=== PATIENT | male | born 1960 | race Caucasian/White ===

== ENCOUNTER 2017-05-11 12:16 | Observation (INO) ==
[2017-05-11] MEDS ORDERED: ONDANSETRON 4 MG/2 ML INJECTION IVP ONE ×2 (12:52→15:46)
[2017-05-11] MEDS ORDERED: NS 1,000 ML IV ONE (12:52)
--- OUTSIDE RECORDS SUMMARY | 2017-05-11 12:55 | External Medical Summary ---
:1960 Author Organization [facility] Address [address] [place], [place] [address] Care Team Providers Name Role Phone Carly Phelps Unavailable Unavailable PROBLEMS Type Condition ICD9-CM [id number] Onset Condition SNOMED Code Code Code Dates Status Problem Cigarette F17.210 Active 348785650 nicotine dependence, uncomplicated Problem Depression with F41.8 Active 869808254 anxiety Problem GERD K21.9 Active 475262445 (gastroesophageal reflux disease) Problem Obesity (BMI E66.9 Active 657588409 30.0-34.9) Problem Type 2 diabetes E11.65 Active 915373434758590 mellitus with hyperglycemia Problem Allergic rhinitis J30.9 Active 01371075 Problem ED (erectile N52.9 Active 268834904 dysfunction) Problem TIA (transient G45.9 Active 415668749 ischemic attack) Problem Diabetic E11.40 Active 003338195 neuropathy Problem HTN I10 Active 16899197 (hypertension) Problem HLD E78.5 Active 52609639 (hyperlipidemia) Problem Vitamin B12 E53.8 Active 133831232 deficiency Problem OA M19.90 Active 149371271 (osteoarthritis) ALLERGIES Unknown Allergies SOCIAL HISTORY No smoking Hx information available PLAN OF CARE VITAL SIGNS MEDICATIONS Unknown Medications RESULTS No Results PROCEDURES No Known procedures IMMUNIZATIONS No Known Immunizations
--- OUTSIDE RECORDS SUMMARY | 2017-05-11 12:59 | External Medical Summary | Summary of Care ---
:1960 Author Name Lena Daily M.D. Address [address] [place], [place] [id number] Care Team Providers Name Role Phone Jeffrey Gómez D.O. Unavailable Unavailable Lena Daily M.D. Unavailable Unavailable Osei Crespo M.D. Unavailable Unavailable Nitin Marrufo Primary Care Provider Unavailable Unavailable Unavailable Unavailable Functional Status Functional Status Health Issues Name Dates Details Functional status health issues are not documented Status: Cognitive Status Health Issues Name Dates Details Cognitive status health issues are not documented Status: Problems Name Dates Details Accidental Needlestick (E920.5) Status: Active Lower back pain (724.2, M54.5) Status: Active Abdominal pain (789.00, R10.9) Status: Active Allergic rhinitis (477.9, J30.9) Status: Active Transient ischemic attack (435.9, G45.9) Status: Active Asthma (493.90, J45.909) Status: Active Obesity (278.00, E66.9) Status: Active Chest pain (786.50, R07.9) Status: Active Depression (311, F32.9) Status: Active Immunodeficiency disorder (279.3, D84.9) Status: Active Pre-operative cardiovascular examination (V72.81, Z01.810) Status: Active Angina pectoris (413.9, I20.9) Status: Active CAD (coronary artery disease) (414.00, I25.10) Status: Active Hyperlipidemia (272.4, E78.5) Status: Active Benign essential hypertension (401.1, I10) Status: Active Left arm pain (729.5, M79.602) Status: Active Type 1 diabetes (250.01, E10.9) Status: Active Rotator cuff tendonitis (726.10, M75.80) Status: Active Shoulder pain (719.41, M25.519) Status: Active Arm pain (729.5, M79.603) Status: Active Medications Name Dates Details Aspirin 81 MG Oral Tablet TAKE 1 TABLET DAILY. Refills: 0 Started 23-Jul-2013 ActiveRanitidine HCl - 150 MG Oral Tablet TAKE 1 TABLET DAILY. Refills: 0 Started 23-Jul-2013 ActiveLasix 40 MG Oral Tablet TAKE 1 TABLET DAILY. Refills: 0 Started 23-Jul-2013 ActiveALPRAZolam 2 MG Oral Tablet Take one tablet q4h PRN Refills: 0 Started 23-Jul-2013 ActiveAtorvastatin Calcium 80 MG Oral Tablet TAKE ONE TABLET BY MOUTH EVERY NIGHT AT BEDTIME Quantity: 30 Refills: 6 Parker Crespo M.D. Started ActiveJanumet 50-1000 MG Oral Tablet TAKE 1 TABLET TWICE DAILY WITH MEALS. Refills: 0 Parker Crespo M.D. Started 15-Jun-2014 ActiveProAir HFA 108 (90 Base) MCG/ACT Inhalation Aerosol Solution INHALE 1 TO 2 PUFFS EVERY 4 TO 6 HOURS NEEDED. Refills: 0 Parker Crespo M.D. Started 15-Jun-2014 ActiveFluticasone Propionate 50 MCG/ACT Nasal Suspension USE 1 SPRAY IN EACH NOSTRIL ONCE DAILY. Refills: 0 Parker Crespo M.D. Started 15-Jun-2014 ActiveGlipiZIDE 10 MG Oral Tablet take one tab twice daily Refills: 0 Parker Crespo M.D. Started 15-Jun-2014 ActiveXyzal 5 MG Oral Tablet TAKE 1 TABLET DAILY. Refills: 0 Parker Crespo M.D. Started 15-Jun-2014 ActiveLisinopril-Hydrochlorothiazide 20-12.5 MG Oral Tablet TAKE 1 TABLET DAILY. Refills: 0 Parker Crespo M.D. Started 15-Jun-2014 ActiveDoxepin HCl - 10 MG Oral Capsule TAKE 1 CAPSULE AT BEDTIME. Refills: 0 Parker Crespo M.D. Started 15-Jun-2014 ActiveCeleXA 40 MG Oral Tablet TAKE 1 TABLET DAILY. Refills: 0 Parker Crespo M.D. Started 15-Jun-2014 ActiveLevocetirizine Dihydrochloride 5 MG Oral Tablet TAKE 1 TABLET DAILY IN THE EVENING. Refills: 0 Started 24-Jul-2014 ActiveAbilify 10 MG Oral Tablet TAKE 1 TABLET DAILY. Refills: 0 Started 24-Jul-2014 ActiveZofran 8 MG Oral Tablet Refills: 0 Started 24-Jul-2014 ActiveCitalopram Hydrobromide 40 MG Oral Tablet TAKE 1 TABLET DAILY. Refills: 0 Started 24-Jul-2014 ActiveFurosemide 40 MG Oral Tablet TAKE 1 TABLET DAILY DIRECTED. Refills: 0 Started 24-Jul-2014 ActiveByetta 5 MCG Pen 5 MCG/0.02ML Subcutaneous Solution Pen-injector USE DIRECTED. Refills: 0 Started 24-Jul-2014 ActivePotassium Chloride ER 10 MEQ Oral Tablet Extended Release TAKE 1 TABLET TWICE DAILY. Refills: 0 Started 24-Jul-2014 ActiveDiclofenac Sodium 75 MG Oral Tablet Delayed Release TAKE 1 TABLET Every twelve hours PRN arm pain Quantity: 50 Refills: 0 Reyes Gómez D.O. Started 05-Aug-2014 ActiveOxycodone-Acetaminophen 7.5-325 MG Oral Tablet Si PO every 6-8 hrs prn with a max of 3 per day. Quantity: 90 Refills: 0 Alfonso Daily M.D. Started 26-Oct-2015 Active Allergies and Adverse Reactions Name Dates Details Bactrim TABS Status: Active Procedures Procedure Dates Details History of Coronary Angiography Without Completed:12-Jul-2013 Concomitant Left Heart Catheterization History of Appendectomy History of Knee Surgery History of Angioplasty Drug Screen Pain Management 8400 Ordered:26-Oct-2015 Immunization Name Dates Details Immunizations not documented Family History Mother Name Dates Details Family history of diabetes mellitus (V18.0, Z83.3) Status: Active Father Name Dates Details Family history of cerebrovascular accident (V17.1, Z82.3) Status: Active Family history of acute myocardial infarction (V17.3, Z82.49) Status: Active Brother Name Dates Details Family history of acute myocardial infarction (V17.3, Z82.49) Status: Active FH: CABG (coronary artery bypass surgery) (V17.3, Z84.89) Status: Active Social History Name Dates Details Smoking StatusCurrent every day smoker Vital Signs Date Test Result Details No Known Vitals to report Results Date Description Value Details Results not documented Plan of Care Planned Observations Name Dates Details Planned Goals not documented Goal Planned Encounters Appointment; Provider: Alfonso Daily On 24-Nov-2015 15:30 Appointment; Provider: Parker Crespo On 06-Jul-2014 08:30 Appointment; Provider: Parker Crespo On 12-Jul-2013 08:30 Instructions Instructions not documented Encounters Appointment; Alfonso Daily On 26-Oct-2015 Encounter Diagnosis: Problem not documented 10:00 Appointment; Yordan Whalen On 09-Aug-2014 Encounter Diagnosis: Problem not documented 13:00 Appointment; Reyes Gómez On 05-Aug-2014 Encounter Diagnosis: Problem not documented 09:00 Appointment; Shaun Oakes On 04-Aug-2014 Encounter Diagnosis: Problem not documented 09:45 Appointment; Reyes Gómez On 24-Jul-2014 Encounter Diagnosis: Problem not documented 08:25 Appointment; Yordan Whalen On 15-Jun-2014 Encounter Diagnosis: Problem not documented 13:00
--- OUTSIDE RECORDS SUMMARY | 2017-05-11 13:02 | External Medical Summary ---
:1960 Author Organization [employer] Care Team Providers Name Role Phone Evon Virgen Provider Role Unavailable Allergies, Adverse Reactions, Alerts Substance Reaction Event Type Bactrim Info Not Available Drug Allergy Problems Problem Type Condition ICD-9 Code Onset Dates Condition Status Problem Edema 782.3 Active Problem Coronary atherosclerosis of 414.00 Active unspecified type of vessel, [place] or graft Problem Diabetes mellitus without 250.02 Active mention of complication, type II or unspecified type, uncontrolled Problem Lipidemia 272.4 Active Problem GERD (gastroesophageal reflux 530.81 Active disease) Problem Smoker 305.1 Active Problem Allergic rhinitis 477.9 Active Problem Obesity 278.00 Active Problem Anxiety and depression 300.4 Active Problem Erectile dysfunction 607.84 Active Assessment Muscle cramps 729.82 Active Assessment GERD (gastroesophageal reflux 530.81 Active disease) Assessment Coronary atherosclerosis of 414.00 Active unspecified type of vessel, [place] or graft Assessment ED (erectile dysfunction) 607.84 Active Assessment Diabetes mellitus without 250.02 Active mention of complication, type II or unspecified type, uncontrolled Medications Medication Code Code Instructions Start End Status Dosage System Date Date Potassium [facility] [address]-34 10 meq Orally Jul 15September 05 tablet Chloride Perri Twice a day 2014 09, ER 2014 Carafate [facility] [address]-28 1 GM/10ML Aug 16November 14, 10 ml Orally Twice a 2014 2014 day Flonase [facility] [address]-46 50 MCG/ACT December 06 spray in Nasally Once a 13, each nostril day 2013 Clemastine [facility] [address]-77 1.34 MG Orally 1 tablet as Fumarate Twice a day needed Janumet [facility] [address]-83 50-1000 MG Jul 05, 1 tablet with Orally Twice a 2013 day GlipiZIDE [facility] [address]-16 5 MG Orally Apr 12, 1 tablet Once a day 2013 Diclofenac 75mg [facility] [address]-37 not defined tablet Zofran [facility] [address]-02 8 MG Orally Jun 28, 1 tablet Once a day 2013 Byetta 5 MCG [facility] [address]-62 5 MCG/0.02ML Jul 06, Sep 04, 5 mcg Pen Subcutaneous 2013 2014 Twice a day with AM and PM meals Atorvastatin [facility] [address]-14 80 MG Orally Feb 22, 1 tablet Calcium Once a day 2013 Aspirin ND 0 81 mg Jul 23, take 1 tablet 2013 (81 mg) by oral route once daily Pantoprazole [facility] [address]-41 40 MG Orally Jul 06, 1 tablet Sodium Once a day 2013 Easy Touch Pen ND 0 31G Ultra fine Jul 07, as directed [place] mini subQ 2013 twice a day Sildenafil ND 0 50 MG Orally Aug 16October 06 tablet 30 Citrate Once a day 2014 10, min before 2015 intercourse Albuterol [facility] 36076631087 90 Inhalation 2 puffs as Sulfate HFA every 4 hrs needed Lisinopril-Hydr [facility] [address]-36 20-12.5 mg Jul 23, take 1 tablet ochlorothiazide 2013 by Oral route 1 time per day for 30 day(s) Lasix [facility] 65663605367 40 TAKE ONE TABLET BY MOUTH DAILY Xanax [facility] [address]-59 1 MG Orally October take 1 tablet once a day , by Oral route 2013 3 times per day Abilify [facility] [address]-62 5 MG Orally 1 tablet Once a day Procedures Procedure Coding System Code Date OFFICE VISIT EST PATIENT LEVEL 3 CPT-4 37443 Aug 16, 2014 Vital Signs Date/Time: Aug 16, 2014 BMI 32.40 Index Weight 225.8 lbs Height 70 in Blood Pressure Diastolic 74 mm Hg Blood Pressure Systolic 128 mm Hg Cardiac Monitoring Heart Rate 80 /min Temperature 98.1 F Respiratory Rate 18 /min Results No Known Results Summary Purpose [employer] Submission
--- OUTSIDE RECORDS SUMMARY | 2017-05-11 13:02 | External Medical Summary ---
:1960 Author Organization [employer] Care Team Providers Name Role Phone Janneth Turpin Provider Role Unavailable Allergies No Known Allergies Problems Problem Type Condition Code Onset Dates Condition Status Problem Type 2 diabetes mellitus with E11.65 Active hyperglycemia Problem Obesity (BMI 30.0-34.9) E66.9 Active Problem HLD (hyperlipidemia) E78.5 Active Problem Depression with anxiety F41.8 Active Problem HTN (hypertension) I10 Active Problem ED (erectile dysfunction) N52.9 Active Problem Allergic rhinitis J30.9 Active Problem GERD (gastroesophageal reflux K21.9 Active disease) Problem Cigarette nicotine dependence, F17.210 Active uncomplicated Medications Medication Code System Code Instructions Start End Date Status Dosage Date MetFORMIN HCl [facility] 13184-09 1000 MG Orally Jul 25, 2 tablets ER (MOD) 20-60 Once a day 2015 [place] [address]-60 10 MG Orally Dec 18, Dec 12, 1 tablet as 98-55 Once a day 2014 2015 needed Results No Known Results Summary Purpose [employer] Submission
--- OUTSIDE RECORDS SUMMARY | 2017-05-11 13:02 | External Medical Summary ---
:1960 Author Organization [facility] Address [address] [place], [place] [address] Care Team Providers Name Role Phone Alicia Turpinley Unavailable Unavailable PROBLEMS Type Condition ICD9-CM [id number] Onset Condition SNOMED Code Code Code Dates Status Problem Cigarette F17.210 Active 426355186 nicotine dependence, uncomplicated Problem Depression with F41.8 Active 048990067 anxiety Problem GERD K21.9 Active 563823264 (gastroesophageal reflux disease) Problem TIA (transient G45.9 Active 366556714 ischemic attack) Problem Diabetic E11.40 Active 897731273 neuropathy Problem HTN I10 Active 21477063 (hypertension) Problem HLD E78.5 Active 73956437 (hyperlipidemia) Problem Vitamin B12 E53.8 Active 233051710 deficiency Problem OA M19.90 Active 048633556 (osteoarthritis) Problem Obesity (BMI E66.9 Active 358609491 30.0-34.9) Problem Type 2 diabetes E11.65 Active 271111671282819 mellitus with hyperglycemia Problem Allergic rhinitis J30.9 Active 51659778 Assessment LUQ pain R10.12 10 Oct, Active 860748342 2016 Problem ED (erectile N52.9 Active 940705688 dysfunction) ALLERGIES Substance Reaction Event Type Date Status Pioglitazone HCl hives Drug Allergy Oct, Active Gabapentin Unknown Drug Allergy Oct, Active Bactrim Unknown Drug Allergy Oct, Active SOCIAL HISTORY No smoking Hx information available PLAN OF CARE VITAL SIGNS Height 70 in 2016-10-15 Weight 241.6 lbs 2016-10-15 BMI 34.66 kg/m2 2016-10-15 Temperature 98.0 degrees Fahrenheit 2016-10-15 Heart Rate 98 /min 2016-10-15 Respiratory Rate 18 /min 2016-10-15 Oximetry 96 % 2016-10-15 Blood pressure systolic 122 mm Hg 2016-10-15 Blood pressure diastolic 76 mm Hg 2016-10-15 MEDICATIONS Medication Instructions Dosage Frequency Start End Duration Status Date Date Oxycodone-Acetamin Orally every 6 1 tablet 6h Active ophen 7.5-325 MG hrs as needed GlipiZIDE ER 10 MG Orally Once a 1 tablet 24h Jan, 90 days Active day 2015 Cyclobenzaprine Orally Three 1 tablet 31 Sep, 10 Oct, 10 days Active HCl 10 MG times a day as 2016 2016 needed Clopidogrel Orally Once a 1 tablet 24h Jul, days Active Bisulfate 75 MG day 2016 ProAir HFA 108 (90 Inhalation 2 puffs as 4h Jun, days Active Base) MCG/ACT every 4 hrs needed 2015 Lisinopril-Hydroch Orally Once a 1 tablet 24h Jul, days Active lorothiazide day 2013 20-12.5 MG Xanax 1 MG Orally twice a 1 tablet 12h Oct, days Active day prn 2013 Cialis 5 MG Orally Once a 1 tablet 24h Jul, Jan, day(s) Active day 2016 2016 Atorvastatin Orally Once a 1 tablet 24h Feb, days Active Calcium 80 mg day 2013 MetFORMIN HCl ER Orally twice a 2 tablets 12h Aug, 90 days Active 500 MG day 2016 Furosemide 40 TAKE ONE 90 Active TABLET BY MOUTH DAILY Duloxetine HCl 30 Orally once a 1 capsule 24h Jun, day(s) Active MG day 2015 RESULTS No Results PROCEDURES Procedure Date Ordered Related Diagnosis Body Site OFFICE VISIT EST PATIENT LEVEL 3 October 15, 2016 IMMUNIZATIONS No Known Immunizations
--- OUTSIDE RECORDS SUMMARY | 2017-05-11 13:04 | External Medical Summary ---
:1960 Author Organization [employer] Care Team Providers Name Role Phone Evon Virgen Provider Role Unavailable Allergies No Known Allergies Problems Problem Type Condition ICD-9 Code Onset Dates Condition Status Problem Edema 782.3 Active Problem Coronary atherosclerosis of 414.00 Active unspecified type of vessel, [place] or graft Problem Diabetes mellitus without 250.02 Active mention of complication, type II or unspecified type, uncontrolled Problem Lipidemia 272.4 Active Problem GERD (gastroesophageal reflux 530.81 Active disease) Problem Smoker 305.1 Active Problem Allergic rhinitis 477.9 Active Problem Obesity 278.00 Active Problem Anxiety and depression 300.4 Active Problem Erectile dysfunction 607.84 Active Medications No Known Medications Results No Known Results Summary Purpose [employer]ClinicalWorks Submission
--- OUTSIDE RECORDS SUMMARY | 2017-05-11 13:04 | External Medical Summary | Summary of Care ---
:1960 Author Name Lena Daily M.D. Address Unavailable Unavailable , Care Team Providers Name Role Phone Jeffrey Gómez D.O. Unavailable Unavailable Lena Daily M.D. Unavailable Unavailable Osei Crespo M.D. Unavailable Unavailable Nitin Marrufo Unavailable Unavailable Unavailable Unavailable Unavailable Functional Status Functional [...] Status: Active Asthma (493.90, J45.909) Status: Active Chest pain (786.50, R07.9) Status: [...] Active Arm pain (729.5, M79.603) Status: Active Fibromyalgia (729.1, M79.7) Status: Active Shoulder pain, right (719.41, M25.511) Status: Active Rotator cuff syndrome, right (726.10, M75.101) Status: Active Low back pain (724.2, M54.5) Status: Active Degenerative disc disease, lumbar (722.52, M51.36) Status: Active Radicular syndrome of lower limbs (724.4, M54.10) Status: Active Obesity (278.00, E66.9) Status: Active Chronic use of opiate drugs therapeutic purposes (V58.69, Z79.891) Status: Active Medications Name Dates Details Aspirin 81 MG TABS TAKE 1 TABLET DAILY. Refills: 0 Start 23-Jul-2013 Active RaNITidine HCl - 150 MG Oral Tablet TAKE 1 TABLET DAILY. Refills: 0 Start 23-Jul-2013 Active Lasix 40 MG Oral Tablet TAKE 1 TABLET DAILY. Refills: 0 Start 23-Jul-2013 Active Atorvastatin Calcium 80 MG Oral Tablet TAKE ONE TABLET BY MOUTH EVERY NIGHT AT BEDTIME Quantity: 30 Refills: 6 Parker Crespo M.D. Start Active Janumet 50-1000 MG Oral Tablet TAKE 1 TABLET TWICE DAILY WITH MEALS. Refills: 0 Parker Crespo M.D. Start 15-Jun-2014 Active ProAir HFA 108 (90 Base) MCG/ACT Inhalation Aerosol Solution INHALE 1 TO 2 PUFFS EVERY 4 TO 6 HOURS NEEDED. Refills: 0 Parker Crespo M.D. Start 15-Jun-2014 Active Fluticasone Propionate 50 MCG/ACT Nasal Suspension USE 1 SPRAY IN EACH NOSTRIL ONCE DAILY. Refills: 0 Parker Crespo M.D. Start 15-Jun-2014 Active Xyzal 5 MG Oral Tablet TAKE 1 TABLET DAILY. Refills: 0 Parker Crespo M.D. Start 15-Jun-2014 Active Lisinopril-Hydrochlorothiazide 20-12.5 MG Oral Tablet TAKE 1 TABLET DAILY. Refills: 0 Parker Crespo M.D. Start 15-Jun-2014 Active Doxepin HCl - 10 MG Oral Capsule TAKE 1 CAPSULE AT BEDTIME. Refills: 0 Parker Crespo M.D. Start 15-Jun-2014 Active CeleXA 40 MG Oral Tablet TAKE 1 TABLET DAILY. Refills: 0 Parker Crespo M.D. Start 15-Jun-2014 Active ALPRAZolam 2 MG Oral Tablet Take one tablet q4h PRN Refills: 0 Start 23-Jul-2013 Active Levocetirizine Dihydrochloride 5 MG Oral Tablet TAKE 1 TABLET DAILY IN THE EVENING. Refills: 0 Start 24-Jul-2014 Active Abilify 10 MG Oral Tablet TAKE 1 TABLET DAILY. Refills: 0 Start 24-Jul-2014 Active Zofran 8 MG Oral Tablet Refills: 0 Start 24-Jul-2014 Active Citalopram Hydrobromide 40 MG Oral Tablet TAKE 1 TABLET DAILY. Refills: 0 Start 24-Jul-2014 Active Furosemide 40 MG Oral Tablet TAKE 1 TABLET DAILY DIRECTED. Refills: 0 Start 24-Jul-2014 Active Byetta 5 MCG Pen 5 MCG/0.02ML Subcutaneous Solution Pen-injector USE DIRECTED. Refills: 0 Start 24-Jul-2014 Active Potassium Chloride ER 10 MEQ Oral Tablet Extended Release TAKE 1 TABLET TWICE DAILY. Refills: 0 Start 24-Jul-2014 Active GlipiZIDE 10 MG Oral Tablet take one tab twice daily Refills: 0 Parker Crespo M.D. Start 15-Jun-2014 Active Diclofenac Sodium 75 MG Oral Tablet Delayed Release TAKE 1 TABLET Every twelve hours PRN arm pain Quantity: 50 Refills: 0 Reyes Gómez D.O. Start 05-Aug-2014 Active Oxycodone-Acetaminophen 7.5-325 MG Oral Tablet Si PO every 6-8 hrs prn with a max of 3 per day. Quantity: 90 Refills: 0 Alfonso Daily M.D. Start 19-Oct-2016 Active Hydrocodone-Acetaminophen 10-325 MG Oral Tablet Take 1 to 2 PO every 4-6 hours prn*max 3 per day*Must last [address] Daily Quantity: 90 Refills: 0 Alfonso Daily M.D. Start 07-Nov-2016 Active Allergies and Adverse Reactions Name Dates Details Bactrim TABS (Allergy) Status: Active Procedures Procedure Dates Details History of Coronary Angiography Without Concomitant Left Completed: 2013 Heart Catheterization History of Appendectomy History of Knee Surgery History of Angioplasty Procedures not documented Immunization Name Dates Details Immunizations not documented [...] Status: Active Social History Name Dates Details - Status: Smoking Status Name Dates Details Current every day smoker Vital Signs Date Test Result Details No Known Vitals to report Results Date Description Value Details Results not documented Plan of Care Name Dates Details Planned Observations Planned Goals not documented Planned Encounters Appointment; Provider: Alfonso Daily M.D. On 05-Dec-2016 15:30 Interventions Provided Medication ChangesHydrocodone-Acetaminophen 10-325 MG Oral Tablet - Start Instructions Name Dates Details Instructions not documented Encounters Appointment; Alfonso Daily M.D. On 12-Sep-2016 Encounter Diagnosis: Problem not documented 08:15 Appointment; Alfonso Daily M.D. On 19-Jul-2016 Encounter Diagnosis: Problem not documented 09:00 Appointment; Alfonso Daily M.D. On 15-May-2016 Encounter Diagnosis: Problem not documented 09:30 Appointment; Alfonso Daily M.D. On 15-Mar-2016 Encounter Diagnosis: Problem not documented 10:30 Appointment; Alfonso Daily M.D. On Encounter Diagnosis: Problem not documented 09:00 Appointment; Alfonso Daily M.D. On Encounter Diagnosis: Problem not documented 15:15 Appointment; Alfonso Daily M.D. On 24-Nov-2015 Encounter Diagnosis: Problem not documented 15:30 Appointment; Alfonso Daily M.D. On 26-Oct-2015 Encounter Diagnosis: Problem not documented 10:00
--- OUTSIDE RECORDS SUMMARY | 2017-05-11 13:04 | External Medical Summary ---
:1960 Author Organization [employer] Care Team Providers Name Role Phone Evon Virgen Provider Role Unavailable Allergies No Known Allergies Problems Problem Type Condition Code Onset Dates Condition Status Problem Diabetes mellitus without mention of 250.02 Active complication, type II or unspecified type, uncontrolled Problem Obesity 278.00 Active Problem Coronary atherosclerosis of 414.00 Active unspecified type of vessel, [place] or graft Problem Edema 782.3 Active Problem Smoker 305.1 Active Problem Lipidemia 272.4 Active Problem Unspecified essential hypertension 401.9 Active Problem Erectile dysfunction 607.84 Active Problem Allergic rhinitis 477.9 Active Problem GERD (gastroesophageal reflux 530.81 Active disease) Problem Anxiety and depression 300.4 Active Medications No Known Medications Results No Known Results Summary Purpose [employer]ClinicalWorks Submission
--- OUTSIDE RECORDS SUMMARY | 2017-05-11 13:04 | External Medical Summary ---
:1960 Author Organization [employer] Care Team Providers Name Role Phone Janneth Turpin Provider Role Unavailable Allergies No Known Allergies Problems Problem Type Condition Code Onset Dates Condition Status Problem Allergic rhinitis 477.9 Active Problem Anxiety and depression 300.00 Active Problem Erectile dysfunction 607.84 Active Problem Obesity (BMI 30.0-34.9) E66.9 Active Problem HLD (hyperlipidemia) 272.4 Active Problem Type 2 diabetes mellitus with E11.65 Active hyperglycemia Problem Unspecified essential hypertension 401.9 Active Problem GERD (gastroesophageal reflux 530.81 Active disease) Problem Tobacco use 305.1 Active Problem CAD (coronary artery disease) 414.00 Active Problem Edema 782.3 Active Problem Diabetes mellitus without mention of 250.02 Active complication, type II or unspecified type, uncontrolled Problem Obesity 278.00 Active Medications No Known Medications Results No Known Results Summary Purpose [employer] Submission
--- OUTSIDE RECORDS SUMMARY | 2017-05-11 13:04 | External Medical Summary | Summary of Care ---
[...] of lower limbs (724.4, M54.10) Status: Active Medications Name Dates Details Aspirin 81 MG TABS TAKE 1 TABLET DAILY. Refills: 0 Start 23-Jul-2013 Active RaNITidine HCl - 150 MG Oral Tablet TAKE 1 TABLET DAILY. Refills: 0 Start 23-Jul-2013 Active Lasix 40 MG Oral Tablet TAKE 1 TABLET DAILY. Refills: 0 Start 23-Jul-2013 Active ALPRAZolam 2 MG Oral Tablet Take one tablet q4h PRN Refills: 0 Start 23-Jul-2013 Active Atorvastatin Calcium [...] 0 Parker Crespo M.D. Start 15-Jun-2014 Active GlipiZIDE 10 MG Oral Tablet take [...] 1 CAPSULE AT BEDTIME. Refills: 0 Parker Crepso M.D. Start 15-Jun-2014 Active CeleXA 40 MG Oral Tablet TAKE 1 TABLET DAILY. Refills: 0 Parker Crespo M.D. Start 15-Jun-2014 Active Levocetirizine Dihydrochloride 5 MG Oral Tablet [...] TWICE DAILY. Refills: 0 Start 24-Jul-2014 Active Diclofenac Sodium 75 MG Oral Tablet Delayed Release TAKE 1 TABLET Every twelve hours PRN arm pain Quantity: 50 Refills: 0 Reyes Gómez D.O. Start 05-Aug-2014 Active Oxycodone-Acetaminophen 7.5-325 MG Oral Tablet Si PO every 6-8 hrs prn with a max of 3 per day. Quantity: 90 Refills: 0 Alfonso Daily M.D. Start 21-Jun-2016 Active Allergies and Adverse Reactions Name Dates [...] Planned Observations Planned Goals not documented Planned Medications Oxycodone-Acetaminophen 7.5-325 MG Oral Tablet Ordered: 21-Jun-2016 Active Instructions Name Dates Details Instructions not documented Encounters Appointment; Alfonso Daily M.D. On 15-Mar-2016 Encounter Diagnosis: Problem not documented 10:30 Appointment; Alfonso Daily M.D. On Encounter Diagnosis: Problem not documented 09:00 Appointment; Alfonso Daily M.D. On Encounter Diagnosis: Problem not documented 15:15 Appointment; Alfonso Daily M.D. On 24-Nov-2015 Encounter Diagnosis: Problem not documented 15:30 Appointment; Alfonso Daily M.D. On 26-Oct-2015 Encounter Diagnosis: Problem not documented 10:00 Appointment; Yordan Whalen PJose On 09-Aug-2014 Encounter Diagnosis: Problem not documented 13:00 Appointment; Reyes Gómez D.O. On 05-Aug-2014 Encounter Diagnosis: Problem not documented 09:00 Appointment; Shaun Oakes M.D. On 04-Aug-2014 Encounter Diagnosis: Problem not documented 09:45 Appointment; Reyes Gómez D.O. On 24-Jul-2014 Encounter Diagnosis: Problem not documented 08:25 Appointment; Yordan Whalen PKanwalAKanwal On 15-Jun-2014 Encounter Diagnosis: Problem not documented 13:00
--- OUTSIDE RECORDS SUMMARY | 2017-05-11 13:05 | External Medical Summary | Summary of Care ---
:1960 Author Name Jeffrey Maddox Address [address], [place] [id number] Care Team Providers Name Role Phone Osei Crespo M.D. Unavailable Unavailable Unavailable Unavailable Unavailable Functional Status [...] Benign essential hypertension (401.1, I10) Status: Active Shoulder pain (719.41, M25.519) Status: Active Arm pain (729.5, M79.603) Status: Active Left arm pain (729.5, M79.602) Status: Active Type 1 diabetes (250.01, E10.9) Status: Active Rotator cuff tendonitis (726.10, M75.80) Status: Active Medications Name Dates Details Aspirin 81 MG Oral Tablet TAKE 1 TABLET DAILY. Refills: 0 Started -Jul-2013 ActiveRanitidine HCl - 150 MG Oral Tablet [...] IN EACH NOSTRIL ONCE DAILY. Refills: 0 aPrker Crespo M.D. Started 15-Jun-2014 ActiveGlipiZIDE 10 MG [...] TABLET TWICE DAILY. Refills: 0 Started 24-Jul-2014 Active Allergies and Adverse Reactions Name Dates Details Bactrim TABS Status: Active Procedures Procedure Dates Details History of Coronary Angiography Without Concomitant Left Completed:2013 Heart Catheterization History of Appendectomy History of [...] FH: CABG (coronary artery bypass surgery) (V17.3, Z82.49) Status: Active Social History Name Dates Details Smoking StatusCurrent every day smoker Vital Signs Date Test Result Details 04-Aug-2014 10:01 BP Systolic 133 mm[Hg] Status: BP Diastolic 83 mm[Hg] Status: Weight 230 lb Status: Height 70 in Status: Body Mass Index Calculated 33 kg/m2 Status: Body Surface Area Calculated 2.22 m2 Status: 24-Jul-2014 08:53 BP Systolic 121 mm[Hg] Status: BP Diastolic 82 mm[Hg] Status: Heart Rate 77 /min Status: Temperature 98.1 f Status: O2 SAT 97 % Status: Results Date Description Value Details 21-Jul-2014 Drug Screen ( 7 Drug Comments: check this order TESTING PERFORMED AT: [] [address], [address], PHONE: [phone], PROFESSIONAL DEVELOPMENT INSTRUCTOR: VI SMALLWOOD MD 07:57 Bundle) [id number] AMPHETAMINES, URINE NEGATIVE NG/ML Range: JLFPYY=4822 (Better) Comments: AMPHETAMINE TEST INCLUDES AMPHETAMINE AND METHAMPHETAMINE.----- BARBITURATES NEGATIVE NG/ML Range: JBRRMQ=686 (Better) BENZODIAZEPINES NEGATIVE NG/ML Range: FYROAG=068 (Better) CANNABINOID NEGATIVE NG/ML Range: CUTOFF=50 (Better) COCAINE (METAB.) NEGATIVE NG/ML Range: DXVBWZ=036 (Better) OPIATES NEGATIVE NG/ML Range: JVERGX=491 (Better) Comments: OPIATE TEST INCLUDES CODEINE AND MORPHINE ONLY.----- PHENCYCLIDINE NEGATIVE NG/ML Range: CUTOFF=25 (Better) Plan of Care Planned Observations Name Dates Details Planned Goals not documented Goal Planned Encounters Appointment; Provider: Yordan Whalen On 09-Aug-2014 13:00 Appointment; Provider: Parker Crespo On 06-Jul-2014 08:30 Appointment; Provider: Parker Crespo On 12-Jul-2013 08:30 Instructions Instructions not documented Encounters Appointment; Shaun Oakes On 04-Aug-2014 Encounter Diagnosis: Problem not documented 09:45 Appointment; Reyes Gómez On 24-Jul-2014 Encounter Diagnosis: Problem not documented 08:25 Appointment; Yordan Whalen On 15-Jun-2014 Encounter Diagnosis: Problem not documented 13:00 Appointment; Parker Crespo On 21-Oct-2013 Encounter Diagnosis: Problem not documented 13:45 Appointment; Yordan Whalen On 23-Jul-2013 Encounter Diagnosis: Problem not documented 11:00
--- OUTSIDE RECORDS SUMMARY | 2017-05-11 13:05 | External Medical Summary ---
:1960 Author Organization [employer] Care Team Providers Name Role Phone Janneth Turpin Provider Role Unavailable Allergies No Known Allergies Problems Problem Type Condition Code Onset Dates Condition Status Problem Type 2 diabetes mellitus with E11.65 Active hyperglycemia Problem ED (erectile dysfunction) N52.9 Active Problem Allergic rhinitis J30.9 Active Problem Obesity (BMI 30.0-34.9) E66.9 Active Problem OA (osteoarthritis) M19.90 Active Problem HTN (hypertension) I10 Active Problem Vitamin B12 deficiency E53.8 Active Problem GERD (gastroesophageal reflux K21.9 Active disease) Problem Cigarette nicotine dependence, F17.210 Active uncomplicated Problem HLD (hyperlipidemia) E78.5 Active Problem Depression with anxiety F41.8 Active Medications Medication Code System Code Instructions Start End Date Status Dosage Date PredniSONE [facility] 01062-067 10 MG Orally Feb 23, Mar 01, 6 po day 1 7-20 Once a day 2015 2015 and decrease by one tab daily until gone. Azithromycin [facility] 78029-152 250 MG Orally Feb 23, Feb 28, 2 tablets 6-09 Once a day 2015 2015 on the first day, then 1 tablet daily for 4 days Results No Known Results Summary Purpose eClinical[employer] Submission
--- OUTSIDE RECORDS SUMMARY | 2017-05-11 13:07 | External Medical Summary | Summary of Care ---
[...] Status: Active Obesity (278.00, E66.9) Status: Active Medications Name Dates Details Aspirin [...] 0 Alfonso Daily M.D. Start 19-Oct-2016 Active Allergies and Adverse Reactions Name Dates [...] Encounters Appointment; Provider: Alfonso Daily M.D. On 07-Nov-2016 08:45 Planned Medications Oxycodone-Acetaminophen 7.5-325 MG Oral Tablet Ordered: 19-Oct-2016 Active Instructions Name Dates Details Instructions not documented Encounters Appointment; Alfonso Daily M.D. On 19-Jul-2016 Encounter [...]
--- OUTSIDE RECORDS SUMMARY | 2017-05-11 13:07 | External Medical Summary | Summary of Care ---
[...] Status: Active Fibromyalgia (729.1, M79.7) Status: Active Low back pain (724.2, M54.5) Status: Active Medications Name Dates Details Aspirin 81 MG TABS TAKE 1 TABLET DAILY. Refills: 0 Started [...] Refills: 0 Reyes Gómez D.O. Started 05-Aug-2014 ActiveHYDROmorphone HCl - 4 MG Oral Tablet Si PO every 4-6 hrs prn with a max of 3 per day. Quantity: 90 Refills: 0 Alfonso Daily M.D. Started Active Allergies and Adverse Reactions Name Dates Details Bactrim TABS Status: Active Procedures Procedure Dates Details History of Coronary Angiography Without Completed:12-Jul-2013 Concomitant Left Heart Catheterization History of Appendectomy History of Knee Surgery History of Angioplasty XRay SHOULDER-Left Ordered: XRay SHOULDER-Right Ordered: Immunization Name Dates Details Immunizations not documented [...] not documented Goal Planned Encounters Appointment; Provider: Parker Crespo On 06-Jul-2014 08:30 Appointment; Provider: Parker Crespo On 12-Jul-2013 08:30 Instructions Instructions not documented Encounters Appointment; Alfonso Daily On Encounter Diagnosis: Problem not documented 15:15 Appointment; Alfonso Daily On 24-Nov-2015 Encounter Diagnosis: Problem not documented 15:30 Appointment; Alfonso Daily On 26-Oct-2015 Encounter Diagnosis: Problem not documented 10:00 Appointment; Yordan Whalen On 09-Aug-2014 Encounter Diagnosis: Problem not documented 13:00 Appointment; Reyes Gómez On 05-Aug-2014 Encounter Diagnosis: Problem not documented 09:00 Appointment; Shaun Oakes On 04-Aug-2014 Encounter Diagnosis: Problem not documented 09:45 Appointment; Reyes óGmez On 24-Jul-2014 Encounter Diagnosis: Problem not documented 08:25 Appointment; Yordan Whalen On 15-Jun-2014 Encounter Diagnosis: Problem not documented 13:00
--- OUTSIDE RECORDS SUMMARY | 2017-05-11 13:07 | External Medical Summary | Summary of Care ---
:1960 Author Name Lena Daily M.D. Address Unavailable Unavailable , Care Team Providers Name Role Phone Lena Daily M.D. Unavailable Unavailable Osei Crespo M.D. Unavailable Unavailable Janneth Turpin Unavailable Unavailable Unavailable Unavailable Unavailable Functional Status [...] Active Angina pectoris (413.9, I20.9) Status: Active Benign essential hypertension (401.1, I10) [...] drugs therapeutic purposes (V58.69, Z79.891) Status: Active CAD (coronary artery disease) (414.00, I25.10) Status: Active Tobacco use disorder (305.1, F17.200) Status: Active Intermittent claudication (443.9, I73.9) Status: Active Hyperlipidemia (272.4, E78.5) Status: Active Medications Name Dates Details ALPRAZolam 2 MG Oral Tablet Take one tablet q4h PRN Refills: 0 Start 23-Jul-2013 Active Atorvastatin Calcium 80 MG Oral Tablet TAKE ONE TABLET BY MOUTH EVERY NIGHT AT BEDTIME Quantity: 30 Refills: 6 Parker Crespo M.D. Start Active ProAir HFA 108 (90 Base) MCG/ACT [...] 0 Parker Crespo M.D. Start 15-Jun-2014 Active Furosemide 40 MG Oral Tablet TAKE 1 TABLET DAILY DIRECTED. Refills: 0 Start 24-Jul-2014 Active Potassium Chloride ER 10 MEQ Oral Tablet Extended Release TAKE 1 TABLET TWICE DAILY. Refills: 0 Start 24-Jul-2014 Active Hydrocodone-Acetaminophen 10-325 MG Oral Tablet Take 1 to 2 PO every 4-6 hours prn*max 3 per day*Must last [address] Daily Quantity: 90 Refills: 0 Alfonso Daily M.D. Start Active MetFORMIN HCl - 1000 MG Oral Tablet TAKE 1 TABLET TWICE DAILY. Refills: 0 Parker Crespo M.D. Start Active Xanax 1 MG Oral Tablet TAKE 1 TABLET BY MOUTH TWO TIMES A DAY Refills: 0 Parker Crespo M.D. Start Active Cetirizine HCl - 10 MG Oral Tablet Chewable CHEW AND SWALLOW 1 TABLET DAILY. Refills: 0 Zak Guidry Parker Franz Start Active PriLOSEC OTC 20 MG Oral Tablet Delayed Release TAKE 1 TABLET DAILY. Refills: 0 Zak Guidry Parker Franz Start Active Colace 100 MG Oral Capsule take 1 cap twice daily Refills: 0 Zak Guidry Parker Franz Start Active Vitamin B-12 5000 MCG Oral Lozenge Take one tablet daily Refills: 0 Zak Guidry Parker Franz Start Active Ibuprofen 600 MG Oral Tablet TAKE 1 TABLET EVERY 6 TO 8 HOURS NEEDED. Refills: 0 Zak Guidry Parker Franz Start Active Cyclobenzaprine HCl - 10 MG Oral Tablet TAKE 1 TABLET 3 TIMES DAILY NEEDED. Quantity: 30 Refills: 0 Zak Guidry Parker Franz Start Active Clopidogrel Bisulfate 75 MG Oral Tablet TAKE 1 TABLET DAILY. Refills: 0 Zak Guidry Parker Franz Start Active Tylenol PM Extra Strength 500-25 MG Oral Tablet TAKE 2 TABLETS AT BEDTIME PRN Refills: 0 Zak Guidry Parker Franz Start Active Allergies and Adverse Reactions Name Dates Details Bactrim TABS (Allergy) Status: Active Pioglitazone HCl TABS (Allergy) Status: Active Procedures Procedure Dates [...] smoker Vital Signs Date Test Result Details 13:54 BP Systolic 132 mm[Hg] Status: Comments: Location: ; Position: BP Diastolic 82 mm[Hg] Status: Comments: Location: ; Position: Heart Rate 76 /min Status: Comments: Location: ; Weight 215 lb Status: Body Mass Index Calculated 30.85 kg/m2 Status: Body Surface Area Calculated 2.15 m2 Status: Results Date Description Value Details Results not documented Plan of Care Name Dates Details Planned Observations Planned Goals not documented Planned Encounters Appointment; Provider: Alfonso Daily M.D. On 11:30 Planned Medications Hydrocodone-Acetaminophen 10-325 MG Oral Tablet Ordered: Active Instructions Name Dates Details Instructions not documented Encounters Appointment; Nicolasa Giles M.D. On Encounter Diagnosis: Problem not documented 13:45 Appointment; Alfonso Daily M.D. On 07-Nov-2016 Encounter Diagnosis: Problem not documented 08:45 Appointment; Alfonso Daily M.D. On 12-Sep-2016 Encounter [...]
--- OUTSIDE RECORDS SUMMARY | 2017-05-11 13:07 | External Medical Summary | Summary of Care ---
[...] Low back pain (724.2, M54.5) Status: Active Shoulder pain, right (719.41, M25.511) Status: Active Medications Name Dates Details Aspirin [...]
--- OUTSIDE RECORDS SUMMARY | 2017-05-11 13:07 | External Medical Summary ---
:1960 Author Organization [facility] Address [address] [place], [place] [id number] Care Team Providers Name Role Phone Alicia Turpinley Unavailable Unavailable PROBLEMS Type Condition ICD9-CM RRZ28-PT Onset Condition SNOMED Code Code Code Dates Status Problem GERD K21.9 Active 593635086 (gastroesophageal reflux disease) Problem HLD E78.5 Active 60544109 (hyperlipidemia) Problem Depression with F41.8 Active 581935012 anxiety Problem Claudication I73.9 Active 228835762 Problem TIA (transient G45.9 Active 118334272 ischemic attack) Problem OA M19.90 Active 280542696 (osteoarthritis) Problem HTN I10 Active 69337142 (hypertension) Problem Diabetic E11.40 Active 009141705 neuropathy Problem Vitamin B12 E53.8 Active 451091237 deficiency Problem Type 2 diabetes E11.65 Active 349385168456715 mellitus with hyperglycemia Problem Allergic rhinitis J30.9 Active 87832986 Assessment Type 2 diabetes E11.65 21 November, Active 830128504953931 mellitus with 2017 hyperglycemia Problem ED (erectile N52.9 Active 985898249 dysfunction) Problem Obesity (BMI E66.9 Active 057866691 30.0-34.9) Problem Cigarette F17.210 Active 983020590 nicotine dependence, uncomplicated ALLERGIES Substance Reaction Event Type Date Status Pioglitazone HCl hives Drug Allergy November, Active Gabapentin Unknown Drug Allergy November, Active Bactrim Unknown Drug Allergy November, Active SOCIAL HISTORY No smoking Hx information available PLAN OF CARE Activity Details Pending Test Vitamin B12 Pending Test CBC With Platelet and Differential Pending Test Comprehensive Metabolic Panel (CMP) Pending Test Lipid Panel Pending Test Non-HDL Cholesterol Pending Test eGFR Pending Test Venipuncture 3 Months,Reason: VITAL SIGNS Height 70 in 2016-11-21 Weight 219.4 lbs 2016-11-21 BMI 31.48 kg/m2 2016-11-21 Temperature 97.9 degrees Fahrenheit 2016-11-21 Heart Rate 76 /min 2016-11-21 Respiratory Rate 18 /min 2016-11-21 Oximetry 98 % 2016-11-21 Blood pressure systolic 138 mm Hg 2016-11-21 Blood pressure diastolic 82 mm Hg 2016-11-21 MEDICATIONS Medication Instructions Dosage Frequency Start End Duration Status Date Date Furosemide 40 TAKE ONE 90 Active TABLET BY MOUTH DAILY Xanax 1 MG Orally twice a 1 tablet 12h 22 Oct, 30 days Active day prn 2013 Cetirizine HCl Orally Once a 1 tablet as 24h 90 Active 10 MG day needed GlipiZIDE ER 10 Orally Once a 1 tablet 24h Jan, days Active MG day 2015 Lisinopril-Harbinger Orally Once a 1 tablet 24h Jul, days Active chlorothiazide day 2013 20-12.5 MG Diabetic Insoles 1 21 November, 1 dose Active supply 2016 Oxycodone-Acetam Orally every 6 1 tablet as 6h Active inophen 7.5-325 hrs needed MG ProAir HFA 108 Inhalation every 2 puffs as 4h Jun, days Active (90 Base) 4 hrs needed 2015 MCG/ACT Atorvastatin Orally Once a 1 tablet 24h Feb, 90 days Active Calcium 80 mg day 2013 MetFORMIN HCl ER Orally twice a 2 tablets 12h Aug, days Active 500 MG day 2016 Clopidogrel Orally Once a 1 tablet 24h Jul, days Active Bisulfate 75 MG day 2016 Duloxetine HCl Orally once a 1 capsule 24h Jun, 30 day(s) Active 30 MG day 2015 Cialis 5 MG Orally Once a 1 tablet 24h Jul, 5 Jan, day(s) Active day 2016 2016 RESULTS No Results PROCEDURES Procedure Date Ordered Related Diagnosis Body Site IN-H GLYCOSYLATED HEMOGLOBIN TEST November 21, 2016 OFFICE VISIT EST PATIENT LEVEL 4 November 21, 2016 VITAMIN B-12 November 21, 2016 LIPID PANEL November 21, 2016 ROUTINE VENIPUNCTURE November 21, 2016 COMPLETE CBC WAUTO DIFF WBC November 21, 2016 COMPREHEN METABOLIC PANEL November 21, 2016 IMMUNIZATIONS No Known Immunizations
--- OUTSIDE RECORDS SUMMARY | 2017-05-11 13:07 | External Medical Summary ---
:1960 Author Organization [employer] Care Team Providers Name Role Phone Janneth Turpin Provider Role Unavailable Allergies, Adverse Reactions, Alerts Substance Reaction Event Type Pioglitazone HCl hives Drug Allergy Bactrim Info Not Available Drug Allergy Problems Problem Type Condition Code Onset Dates Condition Status Assessment Muscle cramps R25.2 Active Problem Type 2 diabetes mellitus with E11.65 Active hyperglycemia Problem Obesity (BMI 30.0-34.9) E66.9 Active Assessment Obesity (BMI 30.0-34.9) E66.9 Active Assessment Biceps tendonitis on left M75.22 Active Problem HLD (hyperlipidemia) E78.5 Active Problem Depression with anxiety F41.8 Active Problem HTN (hypertension) I10 Active Problem ED (erectile dysfunction) N52.9 Active Problem Allergic rhinitis J30.9 Active Problem GERD (gastroesophageal reflux K21.9 Active disease) Problem Cigarette nicotine dependence, F17.210 Active uncomplicated Medications Medication Code Code Instructions Start End Date Status Dosage System Date Atorvastatin [facility] [address]-69 80 mg Orally Feb 22, 1 tablet Calcium Once a day 2013 Lasix [facility] 51363238065 40 Orally Once 1 tablet a day Cetirizine HCl [facility] [address]-78 10 MG Orally Jun 24, Jun 12, 1 tablet Once a day 2014 2015 as needed Viagra [facility] [address]-48 100 mg Orally Apr 08, Apr 02, 1 tablet Once a day 2014 2015 as needed Potassium [facility] [address]-75 20 MEQ Orally Jun 24, January 15, 1 tablet Chloride Perri once a day 2014 2015 ER Lisinopril-Hydr [facility] [address]-70 20-12.5 MG Jul 23, 1 tablet ochlorothiazide Orally Once a 2013 day Phentermine HCl [facility] [address]-29 37.5 MG Orally Jun 24, Jul 17, 1 tablet Once a day 2014 2015 Aspirin ND 0 81 mg Jul 23, take 1 2013 tablet (81 mg) by oral route once daily Metformin HCl [facility] [address]-03 850 MG Orally Mar 09, 1 tablet three times 2014 with a daily meal GlipiZIDE [facility] [address]-82 10 MG Orally Mar 09, 1 tablet twice a day 2014 Lexapro [facility] [address]-25 20 MG Orally 0.5 Once a day tablet Xanax [facility] [address]-08 1 MG Orally October 1 once a day 2013 tablet by Oral route 3 times per day Pantoprazole [facility] [address]-90 40 MG Orally Jul 06 tablet Sodium Once a day 2013 Diclofenac [facility] [address]-39 75 MG Orally December 22September 1 tablet Sodium twice a day 2014 Procedures Procedure Coding System Code Date COMPLETE CBC WAUTO DIFF WBC CPT-4 52578 Jun 24, 2015 COMPREHEN METABOLIC PANEL CPT-4 63397 Jun 24, 2015 OFFICE VISIT EST PATIENT LEVEL 3 CPT-4 60049 Jun 24, 2015 ROUTINE VENIPUNCTURE CPT-4 58644 Jun 24, 2015 Vital Signs Date/Time: Jun 24, 2015 BMI 33.40 Index Weight 232.8 lbs Height 70 in Blood Pressure Diastolic 64 mm Hg Blood Pressure Systolic 108 mm Hg Cardiac Monitoring Heart Rate 78 /min Temperature 98.6 F Respiratory Rate 18 /min Results No Known Results Summary Purpose [employer]ClinicalWorks Submission
[2017-05-11] MEDS: SALINE FLUSH 10ml SYRINGE IVF PRN ×2 (13:08→15:51)
--- OUTSIDE RECORDS SUMMARY | 2017-05-11 13:09 | External Medical Summary ---
:1960 Author Name GENERATED, SYSTEM Care Team Providers Name Role Phone UNASSIGNED DOCTOR MD LILIANE DOCTOR Primary Care Provider [phone] Reason For Visit Chief Complaint SOB Social History Functional Status Vital Signs Results Chemistry from 02/06/2015 11:50 [id number] MMOL/L L (136-145 MMOL/L) POTASSIUM4.0 MMOL/L (3.5-5.1 MMOL/L) [id number] MMOL/L L (98-107 MMOL/L) ASR201.0 MMOL/L (21.0-32.0 MMOL/L) ANION GAP6.0 MMOL/L L (8.0-16.0 MMOL/L) BUN10 MG/DL (7-18 MG/DL) CREATININE0.97 MG/DL (0.70-1.30 MG/DL) BUN/CREATININE RATIO10.3 (9.1-17.0 ) [id number] MG/DL H (65-99 MG/DL) GFR EST NON AFR VANDAUPP39 ML/MIN GFRA EST AFR AMER>90 ML/MIN CALCIUM9.1 MG/DL (8.5-10.1 MG/DL) BILIRUBIN TOTAL0.56 MG/DL (0.20-1.00 MG/DL) TOTAL PROTEIN7.8 GM/DL (6.4-8.2 GM/DL) ALBUMIN3.4 GM/DL (3.4-5.0 GM/DL) GLOBULIN4.4 GM/DL H (2.3-3.5 GM/DL) A/G RATIO0.8 MG/DL L (1.5-2.2 MG/DL) ALK HSCU287 U/L (46-116 U/L) ALT (SGPT)50 U/L (14-59 U/L) AST (SGOT)38 U/L H (15-37 U/L) TROPONIN-I0.06 (SEE BELOW ) B-TYPE NATRIURETIC XQLVWLD97 PG/ML (1-100 PG/ML)Hematology from 02/06/2015 11:50 PMWBC6.6 X10e3/UL (3.6-11.2 X10e3/UL) RBC4.69 X10e6/UL (4.06-5.63 X10e6/UL) SAEGAZIDWF59.4 G/DL (12.5-16.3 G/DL) AWQULGWKJI00.4 % (36.7-47.1 %) MCV86.2 FL (80.0-100.0 FL) MCH30.7 PG (27.0-33.0 PG) MCHC35.7 G/DL (32.0-36.0 G/DL) RDW14.7 % (12.3-17.0 %) RDWSD44.2 (37.1-47.8 ) QMVNEAFI24 X10e3/UL L (159-386 X10e3/UL) MPV9.0 FL (7.4-10.4 FL) AUTOMATED DIFFPERFORMED SEGS65.1 % VIACIWBEFEW26.8 % MONOCYTES7.1 % EOSINOPHILS2.3 % BASOPHILS0.7 % ABSOLUTE NEUTROPHILS4.30 X10e3/UL (1.80-7.80 X10e3/UL) ABSOLUTE LYMPHOCYTES1.60 X10e3/UL (1.00-3.00 X10e3/UL) ABSOLUTE MONOCYTES0.50 X10e3/UL (0.30-1.00 X10e3/UL) ABSOLUTE EOSINOPHILS0.10 X10e3/UL (0.00-0.50 X10e3/UL) ABSOLUTE BASOPHILS0.00 X10e3/UL (0.00-0.20 X10e3/UL)DX Radiology from 02/06/2015 11:33 PMCHEST 2 VIEWSHistory: Shortness of Breath. Technique: 2 VIEW CHEST Priors: 06/12/14 Findings: The cardiac silhouette and pulmonary vasculature are within normal limits. There are no acute infiltrates or effusions. Impression: No acute cardiopulmonary disease. Electronically signed by: Jordan Dunn MD Dictated: 02/07/2015 09:23 Problems Encounter Diagnosis No relevant problems exist. Additional Problems Acute Coronary Syndrome Comment:Problem resolved by [facility] Work[employer] upon Discharge, Status:Resolved.Chest Pain Comment:Problem resolved by [facility] [employer] upon Discharge, Status:Resolved. Encounters Encounter Diagnosis No relevant problems exist. Plan of Care Procedures Completed , on 07/12/2013 12:00 AMCompleted , on 07/12/2013 12:00 AMCompleted , on 12:00 AMCompleted , on 07/12/2013 12:00 AMCompleted , on 07/12/2013 12:00 AM Immunizations No immunizations administered or ordered. Hospital Course Hospital Discharge Instructions Allergies, Adverse Reactions, Alerts Bactrim causes Mild soa.Latex Allergy has not been assessed.IV Contrast Allergy has not been assessed. Medication Medication reconciliation has not been performed.
--- OUTSIDE RECORDS SUMMARY | 2017-05-11 13:09 | External Medical Summary ---
:1960 Author Organization eClinicalWorks Care Team Providers Name Role Phone Evon Virgen Provider Role Unavailable Allergies, Adverse Reactions, Alerts Substance Reaction Event Type Bactrim Info Not Available Drug Allergy Problems Problem Type Condition ICD-9 Code Onset Dates Condition Status Problem Edema 782.3 Active Problem Coronary atherosclerosis of 414.00 Active unspecified type of vessel, [place] or graft Problem Diabetes mellitus without 250.02 Active mention of complication, type II or unspecified type, uncontrolled Problem Lipidemia 272.4 Active Problem GERD (gastroesophageal reflux 530.81 Active disease) Problem Smoker 305.1 Active Problem Allergic rhinitis 477.9 Active Problem Obesity 278.00 Active Problem Anxiety and depression 300.4 Active Problem Erectile dysfunction 607.84 Active Assessment GERD (gastroesophageal reflux 530.81 Active disease) Assessment Coronary atherosclerosis of 414.00 Active unspecified type of vessel, [place] or graft Assessment Diabetes mellitus without 250.02 Active mention of complication, type II or unspecified type, uncontrolled Medications Medication Code Code Instructions Start End Status Dosage System Date Date Xyzal [facility] 0 5 Active TAKE ONE TABLET BY MOUTH EVERY EVENING Janumet [facility] [address]-68 50-1000 MG Jul 05, Active 1 tablet Orally Twice a 2013 with meals day By 5 MCG [facility] [address]-87 5 MCG/0.02ML Jul 06Sep 04, Active 5 mcg Pen Subcutaneous 2013 2014 Twice a day with AM and PM meals Flonase [facility] [address]-27 50 MCG/ACT December 18, Active 1 spray in Nasally Once a 2013 each day nostril Celexa [facility] [address]-58 40 MG Orally December 18, Active 1 tablet Once a day 2013 Zofran [facility] [address]-88 8 MG Orally Jun 28, Active 1 tablet Once a day 2013 Albuterol [facility] 22209342951 90 Inhalation Active 2 puffs as Sulfate HFA every 4 hrs needed Lantus SoloStar [facility] [address]-17 100 UNIT/ML Mar 12, Active 5 units at Subcutaneous 2013 HS Once a day GlipiZIDE [facility] [address]-55 5 MG Orally Apr 12, Active 1 tablet Once a day 2013 Atorvastatin [facility] [address]-27 80 MG Orally Feb 22, Active 1 tablet Calcium Once a day 2013 Clemastine [facility] [address]-39 1.34 MG Orally Active 1 tablet Fumarate Twice a day as needed Potassium [facility] [address]-08 10 meq Orally Jul 15September Active 1 tablet Chloride Perri Twice a day 2014 09, ER 2014 Lisinopril-Hydr [facility] [address]-89 20-12.5 mg Jul 23, Active take 1 ochlorothiazide 2013 tablet by Oral route 1 time per day for 30 day(s) Carafate [facility] [address]-59 1 GM Orally ac Jul 15September Active 1 tablet and hs 2015 03, on an 2014 empty stomach Lasix [facility] 70455280204 40 Active TAKE ONE TABLET BY MOUTH DAILY Aspirin NDC 0 81 mg Jul 23, Active take 1 2013 tablet (81 mg) by oral route once daily Xanax [facility] [address]-21 1 MG Orally October Active take 1 once a day 2013 tablet by Oral route 3 times per day Pantoprazole [facility] [address]-10 40 MG Orally Jul 06, Active 1 tablet Sodium Once a day 2013 Sildenafil NDC 0 50 MG Orally Jul 15, Aug 14, Active 1 tablet Citrate Once a day 2014 as needed min before intercourse Easy Touch Pen NDC 0 31G Ultra fine Jul 07, Active as [place] mini subQ twice 2013 directed a day Procedures Procedure Coding System Code Date IMMUNOASSAY,INFECTIOUS AGENT CPT-4 27637 Jul 15, 2014 GLYCOSYLATED HEMOGLOBIN TEST CPT-4 72482 Jul 15, 2014 METABOLIC PANEL TOTAL CA CPT-4 77858 Jul 15, 2014 HEPATIC FUNCTION PANEL CPT-4 19259 Jul 15, 2014 LIPID PANEL CPT-4 16713 Jul 15, 2014 OFFICE VISIT EST PATIENT LEVEL 3 CPT-4 58474 Jul 15, 2014 ROUTINE VENIPUNCTURE CPT-4 73291 Jul 15, 2014 Vital Signs Date/Time: Jul 15, 2014 BMI 32.71 Index Weight 228 lbs Height 70 in Blood Pressure Diastolic 78 mm Hg Blood Pressure Systolic 120 mm Hg Cardiac Monitoring Heart Rate 72 /min Temperature 97.7 F Respiratory Rate 20 /min Results Name Result Date Reference Range Unit H. pylori Summary Purpose eClinicalWorks Submission
--- OUTSIDE RECORDS SUMMARY | 2017-05-11 13:09 | External Medical Summary ---
:1960 Author Organization [facility] Address [address] [place], [place] [address] Care Team Providers Name Role Phone Janneth Turpin Unavailable Unavailable PROBLEMS Type Condition ICD9-CM [id number] Onset Condition SNOMED Code Code Code Dates Status Problem ED (erectile N52.9 Active 341221522 dysfunction) Problem GERD K21.9 Active 370177869 (gastroesophageal reflux disease) Problem Cigarette F17.210 Active 683219156 nicotine dependence, uncomplicated Assessment RUQ pain R10.11 Jun, Active 986298861 2015 Problem Obesity (BMI E66.9 Active 284296139 30.0-34.9) Problem Type 2 diabetes E11.65 Active 622717208472889 mellitus with hyperglycemia Problem Allergic rhinitis J30.9 Active 25813303 Problem Diabetic E11.40 Active 507886388 neuropathy Problem Vitamin B12 E53.8 Active 752277279 deficiency Problem HLD E78.5 Active 48338434 (hyperlipidemia) Problem Depression with F41.8 Active 315645601 anxiety Problem OA M19.90 Active 744201732 (osteoarthritis) Problem HTN I10 Active 12451377 (hypertension) ALLERGIES Substance Reaction Event Type Date Status Pioglitazone HCl hives Drug Allergy Jun, Active Gabapentin Unknown Drug Allergy Jun, Active Bactrim Unknown Drug Allergy Jun, Active SOCIAL HISTORY No smoking Hx information available PLAN OF CARE Activity Details Pending Test Ultrasound : Abdomen (attn: liver, gallbladder) as scheduled,Reason: VITAL SIGNS Height 70 in 2016-06-28 Weight 210.0 lbs 2016-06-28 BMI 30.13 kg/m2 2016-06-28 Temperature 97.7 degrees Fahrenheit 2016-06-28 Heart Rate 94 /min 2016-06-28 Respiratory Rate 18 /min 2016-06-28 Oximetry 98 % 2016-06-28 Blood pressure systolic 124 mm Hg 2016-06-28 Blood pressure diastolic 76 mm Hg 2016-06-28 MEDICATIONS Medication Instructions Dosage Frequency Start End Duration Status Date Date Xanax 1 MG Orally once a take 1 24h Oct, days Active day tablet by 2013 Oral route 3 times per day GlipiZIDE ER 10 Orally Once a 1 tablet 24h Jan, days Active MG day 2015 Oxycodone-Acetam Orally every 6 1 tablet as 6h Active inophen 7.5-325 hrs needed MG Cialis 20 MG Orally Once a 1 tablet Jun, Aug, 05 days Active day PRN 2015 2016 Atorvastatin Orally Once a 1 tablet 24h Feb, days Active Calcium 80 mg day 2013 MetFORMIN HCl ER Orally Once a 2 tablets 24h Jul, Active (MOD) 1000 MG day with 2015 evening meal Aspirin 81 mg take 1 Jul, Active tablet (81 2013 mg) by oral route once daily Duloxetine HCl Orally once a 1 capsule 24h Jun, day(s) Active 30 MG day 2015 Furosemide 40 TAKE ONE 90 Active TABLET BY MOUTH DAILY ProAir HFA 108 Inhalation every 2 puffs as 4h Jun, days Active (90 Base) 4 hrs needed 2015 MCG/ACT RESULTS Name Result Date Reference Range Ultrasound : Abdomen (attn: liver, gallbladder) 2016-07-03 PROCEDURES Procedure Date Ordered Related Diagnosis Body Site OFFICE VISIT EST PATIENT LEVEL 3 Jun 28, 2016 IMMUNIZATIONS No Known Immunizations
--- OUTSIDE RECORDS SUMMARY | 2017-05-11 13:11 | External Medical Summary ---
[...] Cigarette nicotine dependence, F17.210 Active uncomplicated Medications No Known Medications Results No Known Results Summary Purpose eClinicalWorks Submission
--- OUTSIDE RECORDS SUMMARY | 2017-05-11 13:11 | External Medical Summary ---
:1960 Author Organization eClinicalWorks Care Team Providers Name Role Phone Janneth Turpin Provider Role Unavailable Allergies No Known Allergies Problems Problem Type Condition Code Onset Dates Condition Status Problem Allergic rhinitis J30.9 Active Problem Cigarette nicotine dependence, F17.210 Active uncomplicated Problem ED (erectile dysfunction) N52.9 Active Problem Obesity (BMI 30.0-34.9) E66.9 Active Problem Type 2 diabetes mellitus with E11.65 Active hyperglycemia Problem Vitamin B12 deficiency E53.8 Active Problem OA (osteoarthritis) M19.90 Active Problem Diabetic neuropathy E11.40 Active Problem Depression with anxiety F41.8 Active Problem GERD (gastroesophageal reflux K21.9 Active disease) Problem HTN (hypertension) I10 Active Problem HLD (hyperlipidemia) E78.5 Active Medications Medication Code System Code Instructions Start End Date Status Dosage Date ProAir HFA [facility] 83273-851 108 (90 Base) Dec 12, 2 puffs as 1-85 MCG/ACT 2015 needed Inhalation every 4 hrs Azithromycin [facility] 48415-170 250 MG Orally Jun 18, Jun 23, 2 tablets 6-09 Once a day 2015 2015 on the first day, then 1 tablet daily for 4 days Results No Known Results Summary Purpose eClinicalWorks Submission
--- OUTSIDE RECORDS SUMMARY | 2017-05-11 13:11 | External Medical Summary | Summary of Care ---
[...] disc disease, lumbar (722.52, M51.36) Status: Active Medications Name Dates Details Aspirin 81 MG TABS TAKE 1 TABLET DAILY. Refills: 0 Started 23-Jul-2013 ActiveRaNITidine HCl - 150 MG Oral Tablet TAKE [...] 90 Refills: 0 Alfonso Daily M.D. Started 22-Feb-2016 ActiveHYDROmorphone HCl - 4 MG Oral Tablet [...] to report Results Date Description Value Details 16:18 XRay SHOULDER-Right Comments: Exam Date: 01/12/2016 15: 31Dictation Date: 01/12/2016 16:18 X SHOULDER COMP (MIN 2V) RT (Better) 16:18 XRay SHOULDER-Left Comments: Exam Date: 01/12/2016 15:30Dictation Date: 01/12/2016 16:18 X SHOULDER COMP (MIN 2V) LT (Better) Plan of Care Planned Observations Name Dates Details Planned Goals not documented Goal Planned Encounters Appointment; Provider: Alfonso Daily On 19-Mar-2016 09:00 Appointment; Provider: Alfonso Daily On 15-Mar-2016 10:30 Appointment; Provider: Parker Crespo On 06-Jul-2014 08:30 Appointment; Provider: Parker Crespo On 12-Jul-2013 08:30 Instructions Instructions not documented Encounters Appointment; Alfonso Daily On Encounter Diagnosis: Problem not documented 09:00 Appointment; Alfonso Daily On Encounter Diagnosis: Problem [...]
--- OUTSIDE RECORDS SUMMARY | 2017-05-11 13:11 | External Medical Summary ---
[...] Problem ED (erectile dysfunction) N52.9 Active Problem Vitamin B12 deficiency E53.8 Active Problem OA (osteoarthritis) M19.90 Active Problem Diabetic neuropathy E11.40 Active Problem Depression with anxiety F41.8 Active Problem GERD (gastroesophageal reflux K21.9 Active disease) Problem HTN (hypertension) I10 Active Problem HLD (hyperlipidemia) E78.5 Active Assessment Diabetic neuropathy E11.40 Active Assessment HTN (hypertension) I10 Active Assessment Type 2 diabetes mellitus with E11.65 Active hyperglycemia Assessment OA (osteoarthritis) M19.90 Active Problem Obesity (BMI 30.0-34.9) E66.9 Active Assessment HLD (hyperlipidemia) E78.5 Active Problem Type 2 diabetes mellitus with E11.65 Active hyperglycemia Medications Medication Code Code Instructions Start End Status Dosage System Date Date Furosemide [facility] 72317671452 40 TAKE ONE TABLET BY MOUTH DAILY Gabapentin [facility] [address]-90 300 MG Orally May 22, 1 capsule at bedtime [address] [facility] [address]-02 1 MG Orally October take 1 once a day 2013 tablet by Oral route 3 times per day Atorvastatin [facility] [address]-09 80 mg Orally Feb 22, 1 tablet Calcium Once a day [address] [facility] [address]-53 10 MG Orally January 23, 1 tablet Once a day 2015 Oxycodone-Aceta [facility] [address]-04 7.5-325 MG 1 tablet minophen Orally every 6 as needed hrs MetFORMIN HCl [facility] [address]-76 1000 MG Orally Jul 25, 2 tablets ER (MOD) Once a day 2015 with evening meal Cetirizine HCl [facility] [address]-85 10 MG Orally Jun 24, Jun 18, 1 tablet Once a day 2014 2015 as needed Aspirin NDC 0 81 mg Jul 23, take 1 2013 tablet (81 mg) by oral route once daily Procedures Procedure Coding System Code Date OFFICE VISIT EST PATIENT LEVEL 4 CPT-4 06951 May 22, 2016 IN-H GLYCOSYLATED HEMOGLOBIN TEST CPT-4 94613 May 22, 2016 Vital Signs Date/Time: May 22, 2016 BMI 30.21 Index Weight 210.6 lbs Height 70 in Blood Pressure Diastolic 80 mm Hg Blood Pressure Systolic 124 mm Hg Cardiac Monitoring Heart Rate 86 /min Temperature 97.7 F Oximetry 97 % Respiratory Rate 18 /min Results Name Result Date Reference Range Unit Abnormality Flag Hemoglobin A1C - IH ----Hemoglobin A1c 7.1 [id number] 4.0 - 6.0 Summary Purpose eClinicalWorks Submission
--- OUTSIDE RECORDS SUMMARY | 2017-05-11 13:11 | External Medical Summary | Summary of Care ---
:1960 Author Name Lena Daily M.D. Address [address], [place] [id number] Care Team Providers Name Role Phone Jeffrey [...] to report Results Date Description Value Details 28-Oct-2015 DRUG SCREEN PM BASE Comments: Items were attached to this order: Drug Screen PM - TramadolQuest performed at : [facility], [facility] [place], [address], [place], [address], Labora 08:03 PROFILE [id number] dre Director: Brit Looney Ph.D.Quest Collection Date/Time: [id number] Results Received Date/Time: [id number] Reported Date/Time: [id number] Management Profile 1 w/ Confirm ation, Urine Drug 1 TramadolPain Management Profile 1 w/ Confirmation, Urine Drug 2 No Answer GivenPain Management Profile 1 w/ Confirmation, Urine Drug 3 No Answer GivenPain Management Profile 1 w/ Confirmation, Urine Drug 4 No Answer GivenPain Management Profile 1 w/ Confirmation, Urine Drug 5 No Answer Given Prescribed Drug 1 Tramadol (Better) Comments: [AP]----- Prescribed Drug 2 Tramadol (Better) Comments: [AP]----- Creatinine 8.1 mg/dL (Below Range: > or=20.0 low threshold) Comments: [AP]----- Specific [place] 1.014 (Better) Range: > or=1.003 Comments: [AP]----- pH 5.97 (Better) Range: 4.5 - 9.0 Comments: [AP]----- Oxidant NEGATIVE mcg/mL Range: <200 (Better) Comments: [AP]----- Benzodiazepines NEGATIVE ng/mL Range: <100 (Better) Comments: [AP]----- medMATCH Benzodiazepines CONSISTENT Comments: [AP]----- (Better) Cocaine Metabolite NEGATIVE ng/mL Range: <150 (Better) Comments: [AP]----- medMATCH Cocaine Metab CONSISTENT Comments: [AP]----- (Better) Opiates NEGATIVE ng/mL Range: <100 (Better) Comments: [AP]----- medMATCH Opiates CONSISTENT Comments: [AP]----- (Better) Oxycodone NEGATIVE ng/mL Range: <100 (Better) Comments: [AP]----- medMATCH Oxycodone CONSISTENT Comments: [AP]----- (Better) COMMENT SEE NOTE (Better) Comments: medMATCH comments are: - present when drug test results may be the result of metabolism of one or more drugs or when results are inconsistent with prescribed medication(s) listed. - may be blank whe n drug results are consistent with prescribed medication(s) listed.[AP] ----- 08:03 DRUG SCREEN PM, Comments: Items were attached to this order: Drug Screen PM - TramadolQuest performed at: , [facility] [address] [place] [address], [address], [place], [address], Labora Amphetamines with D/L tory Director: Brti Looney Ph.D.Quest Collection Date/Time: [id number] Results Received Date/Time: [id number] Reported Date/Time: [place] [id number] Prescribed Drug 1 Tramadol (Better) Comments: [AP]----- Prescribed Drug 2 Tramadol (Better) Comments: [AP]----- Amphetamines NEGATIVE ng/mL Range: <500 (Better) Comments: [AP]----- medMATCH Amphetamines CONSISTENT Comments: [AP]----- (Better) COMMENT SEE NOTE (Better) Comments: medMATCH comments are: - present when drug test results may be the result of metabolism of one or more drugs or when results are inconsistent with prescribed medication(s) listed. - may be blank whe n drug results are consistent with prescribed medication(s) listed.[AP] ----- 08:03 DRUG SCREEN PM, Comments: Items were attached to this order: Drug Screen PM - TramadolQuest performed at: , [facility], [address] [place] [address], [address], [place], [address], Labora Barbiturates [id number] tor Director: Brit Looney Ph.D.Quest Collection Date/Time: [id number] Results Received Date/Time: [id number] Reported Date/Time: Prescribed Drug 1 Tramadol (Better) Comments: [AP]----- Prescribed Drug 2 Tramadol (Better) Comments: [AP]----- Barbiturates NEGATIVE ng/mL Range: <300 (Better) Comments: [AP]----- medMATCH Barbiturates CONSISTENT Comments: [AP]----- (Better) COMMENT SEE NOTE (Better) Comments: medMATCH comments are: - present when drug test results may be the result of metabolism of one or more drugs or when results are inconsistent with prescribed medication(s) listed. - may be blank whe n drug results are consistent with prescribed medication(s) listed.[AP] ----- 08:03 DRUG SCREEN PM, Methadone Comments: Items were attached to this order: Drug Screen PM - TramadolQuest performed at : [facility], [address] [place] [address], [address], [place], [address], Labora Metabolite [id number] dre Director: Brit Looney Ph.D.Quest Collection Date/Time: [id number] Results Received Date/Time: [id number] Reported Date/Time: Prescribed Drug 1 Tramadol (Better) Comments: [AP]----- Prescribed Drug 2 Tramadol (Better) Comments: [AP]----- Methadone NEGATIVE ng/mL Range: <100 (Better) Comments: [AP]----- medMATCH Methadone CONSISTENT Comments: [AP]----- (Better) COMMENT SEE NOTE (Better) Comments: medMATCH comments are: - present when drug test results may be the result of metabolism of one or more drugs or when results are inconsistent with prescribed medication(s) listed. - may be blank whe n drug results are consistent with prescribed medication(s) listed.[AP] ----- 08:03 DRUG SCREEN PM, Comments: Items were attached to this order: Drug Screen PM - TramadolQuest performed at: [facility], [address] [place] [address], [address], [place], [address], Labora Phencyclidine [id number] april Director: Brit Looney Ph.D.Quest Collection Date/Time: [id number] Results Received Date/Time: [id number] Reported Date/Time: Prescribed Drug 1 Tramadol (Better) Comments: [AP]----- Prescribed Drug 2 Tramadol (Better) Comments: [AP]----- Phencyclidine NEGATIVE ng/mL Range: <25 (Better) Comments: [AP]----- medMATCH Phencyclidine CONSISTENT Comments: [AP]----- (Better) COMMENT SEE NOTE (Better) Comments: medMATCH comments are: - present when drug test results may be the result of metabolism of one or more drugs or when results are inconsistent with prescribed medication(s) listed. - may be blank whe n drug results are consistent with prescribed medication(s) listed.[AP] ----- 29-Oct-2015 DRUG SCREEN PM, Alcohol Comments: Items were attached to this order: Drug Screen PM - TramadolQuest performed at : , [facility], [place], [address], Labora 10:46 Metabolites [id number] dre Director: Brit Looney Ph.D.Quest Collection Date/Time: [id number] Results Received Date/Time: [id number] Reported Date/Time: [id number] Prescribed Drug 1 TramadolZ:\[id number] Comments: [AP]----- [id number]_2.PDF (Better) Prescribed Drug 2 Tramadol (Better) Comments: [AP]----- Alcohol Metabolites NEGATIVE ng/mL Range: <500 (Better) Comments: [AP]----- medMATCH Alcohol Metab CONSISTENT Comments: [AP]----- (Better) Please note: SEE NOTE (Better) Comments: * These results are for medical treatment only Analysis was performed as non-forensic testing *For assistance with interpreting these drug results,please contact a [facility] ToxicologySpecial ist: [phone] ( ),M-F, 8am-6pm EST.[AP]----- COMMENT SEE NOTE (Better) Comments: medMATCH comments are: - present when drug test results may be the result of metabolism of one or more drugs or when results are inconsistent with prescribed medication(s) listed. - may be blank whe n drug results are consistent with prescribed medication(s) listed.[AP] ----- 10:46 Drug Screen PM, Tramadol Comments: Items were attached to this order : Drug Screen PM - TramadolQuest performed at: , [facility], [address], [place], [address], Labora [id number] dre Director: Brit Looney Ph.D.Quest Collection Date/Time: [id number] Results Received Date/Time: [id number] Reported Date/Time: Desmethyltramadol NEGATIVEZ:\[id number] Range: <100 [id number]_21.PDF Comments: [AP]----- ng/mL (Better) Tramadol NEGATIVE ng/mL Range: <100 (Better) Comments: [AP]----- Plan of Care Planned Observations Name Dates Details Planned Goals not documented Goal Planned Encounters Appointment; Provider: Alfonso Daily On 15:30 Appointment; Provider: Parker Crespo On 06-Jul-2014 08:30 Appointment; Provider: Parker Crespo On 12-Jul-2013 08:30 Instructions Instructions not documented Encounters Appointment; Alfonso Daily On 24-Nov-2015 Encounter Diagnosis: [...]
--- OUTSIDE RECORDS SUMMARY | 2017-05-11 13:11 | External Medical Summary ---
:1960 Author Organization [facility] Address [address] [place], [place] [address] Care Team Providers Name Role Phone Janneth Turpin Unavailable Unavailable PROBLEMS Type Condition ICD9-CM [id number] Onset Condition SNOMED Code Code Code Dates Status Problem ED (erectile N52.9 Active 170247846 dysfunction) Problem GERD K21.9 Active 416806998 (gastroesophageal reflux disease) Problem Cigarette F17.210 Active 039651346 nicotine dependence, uncomplicated Problem Obesity (BMI E66.9 Active 385501690 30.0-34.9) Problem Type 2 diabetes E11.65 Active 464695892854387 mellitus with hyperglycemia Problem Allergic rhinitis J30.9 Active 18258999 Problem Diabetic E11.40 Active 558580624 neuropathy Problem Vitamin B12 E53.8 Active 669575066 deficiency Problem HLD E78.5 Active 87656478 (hyperlipidemia) Problem Depression with F41.8 Active 570237733 anxiety Problem OA M19.90 Active 683067936 (osteoarthritis) Problem HTN I10 Active 79486070 (hypertension) ALLERGIES Unknown Allergies SOCIAL HISTORY No smoking Hx information available PLAN OF CARE VITAL SIGNS MEDICATIONS Medication Instructions Dosage Frequency Start Date End Date Duration Status Cialis 20 MG Orally Once a day 1 tablet Jun, 14 b, 05 days Active PRN 2015 2016 RESULTS No Results PROCEDURES No Known procedures IMMUNIZATIONS No Known Immunizations
--- OUTSIDE RECORDS SUMMARY | 2017-05-11 13:14 | External Medical Summary ---
:1960 Author Organization eClinicalWorks Care Team Providers Name Role Phone Evon Virgen Provider Role Unavailable Allergies No Known Allergies Problems Problem Type Condition ICD-9 Code Onset Dates Condition Status Problem Coronary atherosclerosis of 414.00 Active unspecified type of vessel, [place] or graft Problem Allergic rhinitis 477.9 Active Problem Obesity 278.00 Active Problem Unspecified essential 401.9 Active hypertension Problem Smoker 305.1 Active Problem Encounter for long-term current V58.69 Active use of medication Problem Anxiety and depression 300.4 Active Problem Erectile dysfunction 607.84 Active Problem Lipidemia 272.4 Active Problem GERD (gastroesophageal reflux 530.81 Active disease) Assessment Lipidemia 272.4 Active Assessment Diabetes mellitus without 250.02 Active mention of complication, type II or unspecified type, uncontrolled Problem Edema 782.3 Active Assessment Encounter for long-term current V58.69 Active use of medication Problem Diabetes mellitus without 250.02 Active mention of complication, type II or unspecified type, uncontrolled Medications No Known Medications Results No Known Results Summary Purpose Ask ZiggyinicalpayasUgym Submission
--- OUTSIDE RECORDS SUMMARY | 2017-05-11 13:14 | External Medical Summary ---
[...] of 414.00 Active unspecified type of vessel, samish or graft Assessment Unspecified essential hypertension 401.9 Active Problem Edema 782.3 Active Problem Smoker 305.1 Active Problem Lipidemia 272.4 Active Problem Unspecified essential hypertension 401.9 Active Problem Erectile dysfunction 607.84 Active Problem Allergic rhinitis 477.9 Active Problem GERD (gastroesophageal reflux 530.81 Active disease) Problem Anxiety and depression 300.4 Active Medications Medication Code Code Instructions Start End Status Dosage System Date Date Pantoprazole [facility][NOTE 3] [address]-78 40 MG Orally Jul 06, 1 tablet Sodium Once a day 2013 Aspirin ND 0 81 mg Jul 23, take 1 2013 tablet (81 mg) by oral route once daily Easy Touch Pen ND 0 31G Ultra fine Jul 07, as [place] mini subQ twice 2014 directed a day Atorvastatin [facility][NOTE 3] [address]-19 80 MG Orally Feb 22, 1 tablet Calcium Once a day 2013 Abilify [facility][NOTE 3] [address]-57 5 MG Orally 1 tablet Once a day Xanax [facility][NOTE 3] [address]-92 1 MG Orally October take 1 once a day 2013 tablet by Oral route 3 times per day Diclofenac 75mg [facility][NOTE 3] [address]-80 not tablet defined Lasix [facility][NOTE 3] 88454021322 40 Orally Once 1 tablet a day Albuterol [facility][NOTE 3] 90181457434 90 Inhalation 2 puffs as Sulfate HFA every 4 hrs needed Janumet [facility][NOTE 3] [address]-55 50-1000 MG Jul 05, 1 tablet Orally Twice a 2013 with meals day Zofran [facility][NOTE 3] [address]-56 8 MG Orally Jun 28, 1 tablet Once a day 2013 Clemastine [facility][NOTE 3] [address]-79 1.34 MG Orally 1 tablet Fumarate Twice a day as needed GlipiZIDE [facility][NOTE 3] [address]-59 5 MG Orally Apr 12, 1 tablet Once a day 2013 Lisinopril-Hydr [facility][NOTE 3] [address]-45 20-12.5 MG Jul 23, 1 tablet ochlorothiazide Orally Once a 2013 day Flonase [facility][NOTE 3] [address]-68 50 MCG/ACT December 18, 1 spray in Nasally Once a 2013 each day nostril Results No Known Results Summary Purpose eClinicalWorks Submission
--- OUTSIDE RECORDS SUMMARY | 2017-05-11 13:14 | External Medical Summary ---
:1960 Author Organization eClinicalWorks Care Team Providers Name Role Phone Janneth Turpin Provider Role Unavailable Allergies, Adverse Reactions, Alerts Substance Reaction Event Type Pioglitazone HCl hives Drug Allergy Bactrim Info Not Available Drug Allergy Problems Problem Type Condition Code Onset Dates Condition Status Assessment Type 2 diabetes mellitus with E11.65 Active hyperglycemia Problem Type 2 diabetes mellitus with E11.65 Active hyperglycemia Problem Obesity (BMI 30.0-34.9) E66.9 Active Problem HLD (hyperlipidemia) E78.5 Active Problem Depression with anxiety F41.8 Active Problem HTN (hypertension) I10 Active Problem ED (erectile dysfunction) N52.9 Active Problem Allergic rhinitis J30.9 Active Problem GERD (gastroesophageal reflux K21.9 Active disease) Problem Cigarette nicotine dependence, F17.210 Active uncomplicated Assessment Obesity (BMI 30.0-34.9) E66.9 Active Assessment Cigarette nicotine dependence, F17.210 Active uncomplicated Assessment HLD (hyperlipidemia) E78.5 Active Assessment HTN (hypertension) I10 Active Medications Medication Code Code Instructions Start End Status Dosage System Date Date Lasix [facility] 30079665652 40 Orally Once 1 tablet a day Lexapro [facility] [address]-12 20 MG Orally 0.5 tablet Once a day Aspirin ND 0 81 mg Jul 23, take 1 tablet 2013 (81 mg) by oral route once daily MetFORMIN HCl [facility] [address]-66 1000 MG Orally Jul 25, 2 tablets with ER (MOD) Once a day 2015 evening meal Ipratropium [facility] [address]-66 0.03 % Nasally Mar 2 applications Leota Twice a day , 30, in each 2014 2015 nostril as needed Potassium [facility] [address]-22 20 MEQ Orally Jun 24January 1 tablet Chloride Perri once a day 2014 15, ER 2016 Cephalexin [facility] [address]-01 500 MG Orally Jul 25, Aug 04, 1 capsule three times 2015 2015 daily Xanax [facility] [address]-75 1 MG Orally October take 1 tablet once a day , by Oral route 2013 3 times per day Cetirizine HCl [facility] [address]-54 10 MG Orally Jun 24, Jun 18, 1 tablet as Once a day 2014 2015 needed Diclofenac [facility] [address]-24 75 MG Orally December 1 tablet Sodium twice a day 2014 Pantoprazole [facility] [address]-55 40 MG Orally Jul 06, 1 tablet Sodium Once a day 2013 Albuterol [facility] 63980552590 90 Inhalation 2 puffs as Sulfate HFA every 4 hrs needed Phentermine HCl [facility] [address]-00 37.5 MG Orally Jun 24, Jul 24, 1 tablet Once a day 2014 2015 Viagra [facility] [address]-23 100 mg Orally Apr 08Mar 1 tablet as Once a day 2014, needed 2015 Lisinopril-Hydr [facility] [address]-98 20-12.5 MG Jul 23, 1 tablet ochlorothiazide Orally Once a 2013 day Atorvastatin [facility] [address]-44 80 mg Orally Feb 22, 1 tablet Calcium Once a day 2013 GlipiZIDE [facility] [address]-78 10 MG Orally Sept 1 tablet twice a day 2014 Procedures Procedure Coding System Code Date OFFICE VISIT EST PATIENT LEVEL 3 CPT-4 29228 Jul 25, 2015 GLYCOSYLATED HEMOGLOBIN TEST CPT-4 50096 Jul 25, 2015 Vital Signs Date/Time: Jul 25, 2015 BMI 30.76 Index Weight 214.4 lbs Height 70 in Blood Pressure Diastolic 82 mm Hg Blood Pressure Systolic 132 mm Hg Cardiac Monitoring Heart Rate 105 /min Temperature 98.3 F Oximetry 97 % Respiratory Rate 18 /min Results Name Result Date Reference Range Unit Abnormality Flag Hemoglobin A1C - IH ----Hemoglobin A1c 7.2 [id number] 4.0 - 6.0 Summary Purpose eClinicalWorks Submission
--- OUTSIDE RECORDS SUMMARY | 2017-05-11 13:17 | External Medical Summary ---
[...] Start End Date Status Dosage Date PredniSONE [facility] 79577-561 10 MG Orally Jun 06, Jun 06, 6 po day 1 7-20 Once a day 2015 2015 and decrease by one tab daily until gone. Azithromycin [facility] 44053-354 250 MG Orally Jun 06, Jun 11, 2 tablets 6-09 Once a day 2015 2015 on the first day, then 1 tablet daily for 4 days Results No Known Results Summary Purpose eClinicalWorks Submission
--- OUTSIDE RECORDS SUMMARY | 2017-05-11 13:17 | External Medical Summary ---
:1960 Author Organization eClinicalWorks Care Team Providers Name Role Phone Janneth Turpin Provider Role Unavailable Allergies No Known Allergies Problems Problem Type Condition Code Onset Dates Condition Status Problem Diabetes mellitus without mention of 250.02 Active complication, type II or unspecified type, uncontrolled Problem Allergic rhinitis 477.9 Active Problem Obesity 278.00 Active Problem Edema 782.3 Active Problem Tobacco use 305.1 Active Problem CAD (coronary artery disease) 414.00 Active Problem HLD (hyperlipidemia) 272.4 Active Problem Anxiety and depression 300.00 Active Problem Erectile dysfunction 607.84 Active Problem Unspecified essential hypertension 401.9 Active Problem GERD (gastroesophageal reflux 530.81 Active disease) Medications No Known Medications Results No Known Results Summary Purpose eClinicalWorks Submission
--- OUTSIDE RECORDS SUMMARY | 2017-05-11 13:17 | External Medical Summary | Referral Summary ---
:1960 Author Organization [facility] Address [address] [place] [address] Care Team Providers Name Role Phone No PCP, Pt States Primary Care Physician Encounter VC Date(s): 11/13/15 - 11/13/15 [facility] [address] [place] [address] [phone] Discharge Diagnosis: Rib pain Discharge Diagnosis: Pneumonia Discharge Disposition: 01-Home or Self Care Attending Physician: Kevin Locke MD Admitting Physician: Kevin Locke MD Vital Signs Most recent to oldest [Reference Range]: 1 Temperature Oral [35.8-37.3 degC] 36.8 degC (11/13/15 4:29 PM) Peripheral Pulse Rate [60-100 bpm] 87 bpm (11/13/15 5:04 PM) Respiratory Rate [14-20 br/min] 18 br/min (11/13/15 5:04 PM) Blood Pressure [90-140/60-90 mmHg] 112/75 mmHg (11/13/15 5:04 PM) SpO2 96 % (11/13/15 5:04 PM) Problem List No data available for this section Allergies, Adverse Reactions, Alerts Substance Reaction Severity Status Bactrim Active Medications predniSONE 20 mg oral tablet 20 mg 1 tabs, Oral, Daily, X 3 days, # 3 tabs, 0 Refill(s) Start Date: 11/13/15 Stop Date: 11/16/15 Status: OrderedZithromax Z-Shade 250 mg oral tablet 1 packets, Oral, Daily, as directed on package labeling, X 5 days, # 6 tabs, 0 Refill(s) Start Date: 11/13/15 Stop Date: 11/18/15 Status: Ordered Results No data available for this section Immunizations No data available for this section Procedures No data available for this section Social History Social History Type Response Smoking Status Current every day smoker Assessment and Plan No data available for this section
--- OUTSIDE RECORDS SUMMARY | 2017-05-11 13:17 | External Medical Summary | Summary of Care ---
:1960 Author Name Tisha Guidry, Nicolasa Address Unavailable Unavailable , Care Team Providers Name Role Phone Tisha Guidry, Nicolasa Unavailable Unavailable Lena Daily M.D. Unavailable Unavailable Osei Crespo M.D. Unavailable Unavailable Verify PCP Unavailable Unavailable Unavailable Unavailable Unavailable Functional Status [...] MOUTH TWO TIMES A DAY Refills: 0 Zak Guidry Parker Franz Start Active Cetirizine HCl - 10 MG Oral Tablet Chewable CHEW AND SWALLOW 1 TABLET DAILY. Refills: 0 Zak Guidry Parker Start Active PriLOSEC OTC 20 MG Oral [...] TO 8 HOURS NEEDED. Refills: 0 Zak Guidry, Parker Franz Start Active Cyclobenzaprine HCl - [...] Appointment; Provider: Alfonso Daily M.D. On 11:30 Interventions Provided Medication ChangesAbilify 10 MG Oral Tablet - StopAspirin 81 MG TABS - StopByetta 5 MCG Pen 5 MCG/0.02ML Subcutaneous Solution Pen-injector - StopCeleXA 40 MG Oral Tablet - StopCitalopram Hydrobromide 40 MG Oral Tablet - StopDiclofenac Sodium 75 MG Oral Tablet Delayed Release - StopDoxepin HCl - 10 MG Oral Capsule - StopJanumet 50-1000 MG Oral Tablet - StopLasix 40 MG Oral Tablet - StopLevocetirizine Dihydrochloride 5 MG Oral Tablet - StopLisinopril- Hydrochlorothiazide 20-12.5 MG Oral Tablet - StopOxycodone-Acetaminophen 7.5- 325 MG Oral Tablet - StopRaNITidine HCl - 150 MG Oral Tablet - StopXyzal 5 MG Oral Tablet - StopZofran 8 MG Oral Tablet - Stop Instructions Name Dates Details Instructions not documented Encounters Appointment; Alfonso Daily M.D. On 07-Nov-2016 Encounter [...]
--- OUTSIDE RECORDS SUMMARY | 2017-05-11 13:17 | External Medical Summary ---
:1960 Author Organization eClinicalWorks Care Team Providers Name Role Phone Evon Virgen Provider Role Unavailable Allergies, Adverse Reactions, Alerts Substance Reaction Event Type Bactrim Info Not Available Drug Allergy Problems Problem Type Condition ICD-9 Code Onset Dates Condition Status Problem Edema 782.3 Active Problem Coronary atherosclerosis of 414.00 Active unspecified type of vessel, table [place] or graft Problem Diabetes mellitus without 250.02 Active mention of complication, type II or unspecified type, uncontrolled Problem Lipidemia 272.4 Active Problem GERD (gastroesophageal reflux 530.81 Active disease) Problem Smoker 305.1 Active Problem Allergic rhinitis 477.9 Active Problem Obesity 278.00 Active Problem Anxiety and depression 300.4 Active Problem Erectile dysfunction 607.84 Active Assessment Smoker 305.1 Active Assessment Gastroenteritis 558.9 Active Assessment Coronary atherosclerosis of 414.00 Active unspecified type of vessel, table [place] or graft Assessment Diabetes mellitus without 250.02 Active mention of complication, type II or unspecified type, uncontrolled Medications Medication Code Code Instructions Start End Date Status Dosage System Date Lisinopril-Fountain [facility] 12353-70 20-12.5 mg Jul 23, Active take 1 chlorothiazide 63-01 2013 tablet by Oral route 1 time per day for 30 day(s) Albuterol [facility] 10377-37 108 (90 Base) Mar 30, Active 2 puffs as Sulfate HFA 51-85 MCG/ACT 2013 needed Inhalation every 4 hrs Zofran [facility] 63128-58 8 MG Orally Once Jun 28, Active 1 tablet 47-00 a day 2013 Celexa [facility] 90052-61 40 MG Orally December 18, Active 1 tablet 40-01 Once a day 2013 Xanax [facility] 84250-16 1 MG Orally once October 27, Active take 1 90-01 a day 2014 tablet by Oral route 3 times per day Lasix [facility] 59264-54 40 MG Orally Apr 12, Active 1 tablet 60-13 Once a day 2013 Clemastine [facility] 68585-16 1.34 MG Orally Active 1 tablet as Fumarate 28-14 Twice a day needed Flonase [facility] 88884-85 50 MCG/ACT December 18, Active 1 spray in 53-01 Nasally Once a 2013 each day nostril Janumet [facility] 52672-33 50-1000 MG Mar 30, Active 1 tablet 77-52 Orally Twice a 2013 with meals day Victoza [facility] 96721-94 18 MG/3ML Jun 28, Aug 27, Active 0.6 mg/d 60-12 Subcutaneous 2013 2014 for 1 week Once a day then 1.2 mh /d Atorvastatin [facility] 21888-40 80 MG Orally Feb 22, Active 1 tablet Calcium - Once a day 2013 Lantus SoloStar [facility] 52616-12 100 UNIT/ML Mar 12, Active 5 units at - Subcutaneous 2013 HS Once a day pantoprazole [facility] 93817-38 40 mg September 24, Active take 1 41-81 2014 tablet by Oral route 1 time per day for 30 day(s) Aspirin [facility] 0 81 mg Jul 23, Active take 1 2013 tablet (81 mg) by oral route once daily GlipiZIDE [facility] 37989-32 5 MG Orally Once Apr 12, Active 1 tablet 49-00 a day 2013 Procedures Procedure Coding System Code Date OFFICE VISIT EST PATIENT LEVEL 3 CPT-4 48043 Jun 28, 2014 Vital Signs Date/Time: Jun 28, 2014 BMI 31.71 Index Weight 221 lbs Height 70 in Blood Pressure Diastolic 74 mm Hg Blood Pressure Systolic 120 mm Hg Cardiac Monitoring Heart Rate 80 /min Temperature 98.9 F Respiratory Rate 20 /min Results No Known Results Summary Purpose eClinicalWorks Submission
--- OUTSIDE RECORDS SUMMARY | 2017-05-11 13:17 | External Medical Summary | Summary of Care ---
:1960 Author Name Peng Marrufo M.D. Address Unavailable Unavailable , Care Team Providers Name Role Phone Rico Deshpande, Jeffrey Chambers Unavailable Unavailable Lena Daily M.D. Unavailable Unavailable Zak Guidry, Osei Canales Unavailable Unavailable Peng Marrufo M.D. Unavailable Unavailable Nitin Marrufo Unavailable Unavailable [...] TAKE 1 CAPSULE AT BEDTIME. Refills: 0 Zak Guidry Parker Franz Start 15-Jun-2014 Active CeleXA 40 MG Oral [...] Provider: Alfonso Daily M.D. On 07-Nov-2016 08:45 Instructions Name Dates Details Instructions not documented [...]
--- OUTSIDE RECORDS SUMMARY | 2017-05-11 13:17 | External Medical Summary ---
:1960 Author Organization eClinicalWorks Care Team Providers Name Role Phone Evon Virgen Provider Role Unavailable Allergies, Adverse Reactions, Alerts Substance Reaction Event Type Bactrim Info Not Available Drug Allergy Problems Problem Type Condition ICD-9 Code Onset Dates Condition Status Problem Diabetes mellitus without 250.02 Active mention of complication, type II or unspecified type, uncontrolled Problem Obesity 278.00 Active Problem Coronary atherosclerosis of 414.00 Active unspecified type of vessel, [place] or graft Problem Smoker 305.1 Active Problem Lipidemia 272.4 Active Problem Unspecified essential 401.9 Active hypertension Problem Erectile dysfunction 607.84 Active Problem Allergic rhinitis 477.9 Active Problem GERD (gastroesophageal reflux 530.81 Active disease) Problem Anxiety and depression 300.4 Active Assessment Muscle cramps 729.82 Active Assessment Screening for colon cancer V76.51 Active Assessment Diabetes mellitus without 250.02 Active mention of complication, type II or unspecified type, uncontrolled Assessment Lipidemia 272.4 Active Problem Edema 782.3 Active Medications Medication Code Code Instructions Start End Status Dosage System Date Date Aspirin ND 0 81 mg Jul 23, take 1 tablet 2013 (81 mg) by oral route once daily Pantoprazole [facility] [address]-00 40 MG Orally Jul 06, 1 tablet Sodium Once a day 2013 Lisinopril-Hydr [facility] [address]-50 20-12.5 MG Jul 23, 1 tablet ochlorothiazide Orally Once a 2013 day Lantus SoloStar [facility] [address]-80 100 UNIT/ML December 10 u Subcutaneous 16, at hs 2014 Atorvastatin [facility] [address]-42 80 MG Orally Feb 22, 1 tablet Calcium Once a day 2013 Abilify [facility] [address]-42 5 MG Orally 1 tablet Once a day Clemastine [facility] [address]-34 1.34 MG Orally 1 tablet as Fumarate Twice a day needed Flonase [facility] [address]-20 50 MCG/ACT December 06 spray in Nasally Once a 13, each nostril day 2013 Zofran [facility] [address]-27 8 MG Orally Jun 28, 1 tablet Once a day 2013 BD Ultra-Fine [facility] 0 31G Ultra fine December use with Pen [place] mini subQ once , lantus daily 2014 Janumet [facility] [address]-87 50-1000 MG Jul 05, 1 tablet with Orally Twice a 2013 meals day Xanax [facility] [address]-07 1 MG Orally October take 1 tablet once a day , by Oral route 2013 3 times per day Lasix [facility] 50838427129 40 Orally Once 1 tablet a day Albuterol [facility] 80535788248 90 Inhalation 2 puffs as Sulfate HFA every 4 hrs needed Diclofenac [facility] [address]-50 75 MG Orally December 1 tablet Sodium twice a day 2014 Viagra [facility] [address]-09 50 MG Orally Feb 22, 1 tablet as Once a day 2013 needed 30 min before anticipated intercourse Procedures Procedure Coding System Code Date ASSAY OF MAGNESIUM CPT-4 40226 December 21, 2014 LIPID PANEL CPT-4 46415 December 21, 2014 GLYCOSYLATED HEMOGLOBIN TEST CPT-4 49032 December 21, 2014 ROUTINE VENIPUNCTURE CPT-4 79313 December 21, 2014 HEPATIC FUNCTION PANEL CPT-4 21047 December 21, 2014 OFFICE VISIT EST PATIENT LEVEL 3 CPT-4 76050 December 21, 2014 Vital Signs Date/Time: December 21, 2014 BMI 31.13 Index Weight 217 lbs Height 70 in Blood Pressure Diastolic 76 mm Hg Blood Pressure Systolic 122 mm Hg Cardiac Monitoring Heart Rate 80 /min Temperature 98 F Respiratory Rate 18 /min Results No Known Results Summary Purpose eClinicalWorks Submission
--- OUTSIDE RECORDS SUMMARY | 2017-05-11 13:17 | External Medical Summary | Summary of Care ---
[...] Z79.891) Status: Active Medications Name Dates Details Lasix 40 MG Oral Tablet TAKE 1 TABLET DAILY. Refills: 0 Start 23-Jul-2013 Active Atorvastatin Calcium 80 MG Oral Tablet TAKE ONE TABLET BY MOUTH EVERY NIGHT AT BEDTIME Quantity: 30 Refills: 6 Parker Crespo M.D. Start Active Fluticasone Propionate 50 MCG/ACT Nasal Suspension USE 1 SPRAY IN EACH NOSTRIL ONCE DAILY. Refills: 0 Parker Crespo M.D. Start 15-Jun-2014 Active ProAir HFA 108 (90 Base) MCG/ACT Inhalation Aerosol Solution INHALE 1 TO 2 PUFFS EVERY 4 TO 6 HOURS NEEDED. Refills: 0 Parker Crespo M.D. Start 15-Jun-2014 Active Janumet 50-1000 MG Oral Tablet TAKE 1 TABLET TWICE DAILY WITH MEALS. Refills: 0 Parker Crespo M.D. Start 15-Jun-2014 Active RaNITidine HCl - 150 MG Oral Tablet TAKE 1 TABLET DAILY. Refills: 0 Start 23-Jul-2013 Active Aspirin 81 MG TABS TAKE 1 TABLET DAILY. Refills: 0 Start 23-Jul-2013 Active Hydrocodone-Acetaminophen 10-325 MG Oral Tablet Take 1 to 2 PO every 4-6 hours prn*max 3 per day*Must last [address] Daily Quantity: 90 Refills: 0 Alfonso Daily M.D. Start Active Oxycodone-Acetaminophen 7.5-325 MG Oral Tablet Si PO every 6-8 hrs prn with a max of 3 per day. Quantity: 90 Refills: 0 Alfonso Daily M.D. Start 19-Oct-2016 Active CeleXA 40 MG Oral Tablet TAKE 1 TABLET DAILY. Refills: 0 Parker Crespo M.D. Start 15-Jun-2014 Active Doxepin HCl - 10 MG Oral Capsule TAKE 1 CAPSULE AT BEDTIME. Refills: 0 Zak GuidryParker Start 15-Jun-2014 Active Lisinopril-Hydrochlorothiazide 20-12.5 MG Oral Tablet TAKE 1 TABLET DAILY. Refills: 0 Zak GuidryParker Start 15-Jun-2014 Active Xyzal 5 MG Oral Tablet TAKE 1 TABLET DAILY. Refills: 0 Zak Guidry Parker Farnz Start 15-Jun-2014 Active GlipiZIDE 10 MG Oral Tablet take one tab twice daily Refills: 0 Zak GuidryParker Start 15-Jun-2014 Active Levocetirizine Dihydrochloride 5 MG [...] 0 Reyes Gómez D.O. Start 05-Aug-2014 Active ALPRAZolam 2 MG Oral Tablet Take one tablet q4h PRN Refills: 0 Start 23-Jul-2013 Active Allergies and Adverse Reactions Name Dates [...]
--- OUTSIDE RECORDS SUMMARY | 2017-05-11 13:17 | External Medical Summary ---
:1960 Author Organization e[employer] Care Team Providers Name Role Phone Cinthia Gardner Provider Role Unavailable Allergies, Adverse Reactions, Alerts Substance Reaction Event Type Pioglitazone HCl hives Drug Allergy Bactrim Info Not Available Drug Allergy Problems Problem Type Condition Code Onset Dates Condition Status Problem Type 2 diabetes mellitus with E11.65 Active hyperglycemia Problem ED (erectile dysfunction) N52.9 Active Problem Allergic rhinitis J30.9 Active Assessment Upper respiratory infection J06.9 Active Problem Obesity (BMI 30.0-34.9) E66.9 Active Problem OA (osteoarthritis) M19.90 Active Problem HTN (hypertension) I10 Active Problem Vitamin B12 deficiency E53.8 Active Problem GERD (gastroesophageal reflux K21.9 Active disease) Problem Cigarette nicotine dependence, F17.210 Active uncomplicated Problem HLD (hyperlipidemia) E78.5 Active Problem Depression with anxiety F41.8 Active Medications Medication Code Code Instructions Start End Status Dosage System Date Date Cetirizine HCl [facility] [address]-12 10 MG Orally Jun 24, Jun 12, 1 tablet Once a day 2014 2015 as needed Xanax [facility] [address]-68 1 MG Orally October take 1 once a day 2013 tablet by Oral route 3 times per day Oxycodone-Aceta [facility] [address]-45 7.5-325 MG 1 tablet minophen Orally every 6 as needed hrs GlipiZIDE ER [facility] [address]-51 10 MG Orally January 23, 1 tablet Once a day 2015 Lasix [facility] 58991360581 40 Orally Once 1 tablet a day Aspirin ND 0 81 mg Jul 23, take 1 2013 tablet (81 mg) by oral route once daily Pantoprazole [facility] [address]-72 40 MG Orally Jul 06, 1 tablet Sodium Once a day 2013 Atorvastatin [facility] [address]-95 80 mg Orally Feb 22, 1 tablet Calcium Once a day 2013 Azithromycin [facility] [address]-86 250 MG Orally Mar 28, Mar 2 tablets Once a day 2016 26, on the 2015 first day, then 1 tablet daily for 4 days Lisinopril-Hydr [facility] [address]-65 20-12.5 MG Jul 23, 1 tablet ochlorothiazide Orally Once a 2013 day MetFORMIN HCl [facility] [address]-81 1000 MG Orally Jul 25, 2 tablets ER (MOD) Once a day 2015 with evening meal Viagra [facility] [address]-24 100 mg Orally Apr 08Mar 1 tablet Once a day 2014, as needed 2015 Procedures Procedure Coding System Code Date OFFICE VISIT EST PATIENT LEVEL 4 CPT-4 86332 Mar 28, 2016 Vital Signs Date/Time: Mar 28, 2016 BMI 29.45 Index Weight 205 lb 4 oz lbs Height 5 ft 10 in in Blood Pressure Diastolic 78 mm Hg Blood Pressure Systolic 128 mm Hg Cardiac Monitoring Heart Rate 92 /min Temperature 97.8 F Oximetry 98 % Respiratory Rate 18 /min Results No Known Results Summary Purpose eClinicalWorks Submission
--- OUTSIDE RECORDS SUMMARY | 2017-05-11 13:17 | External Medical Summary ---
:1960 Author Organization [employer] Care Team Providers Name Role Phone Evon Virgen Provider Role Unavailable Allergies No Known Allergies Problems Problem Type Condition ICD-9 Code Onset Dates Condition Status Problem Edema 782.3 Active Problem Coronary atherosclerosis of 414.00 Active unspecified type of vessel, three affiliated or graft Problem Diabetes mellitus without 250.02 Active mention of complication, type II or unspecified type, uncontrolled Assessment GERD (gastroesophageal reflux 530.81 Active disease) Problem Lipidemia 272.4 Active Problem GERD (gastroesophageal reflux 530.81 Active disease) Problem Smoker 305.1 Active Problem Allergic rhinitis 477.9 Active Problem Obesity 278.00 Active Problem Anxiety and depression 300.4 Active Problem Erectile dysfunction 607.84 Active Medications Medication Code Code Instructions Start End Status Dosage System Date Date Potassium [facility] [address]-64 10 meq Orally Jul 15September 05 tablet Chloride Perri Twice a day 2014 09, ER 2014 Clemastine [facility] [address]-99 1.34 MG Orally 1 tablet as Fumarate Twice a day needed Atorvastatin [facility] [address]-55 80 MG Orally Feb 22, 1 tablet Calcium Once a day 2013 Xanax [facility] [address]-01 1 MG Orally October take 1 tablet once a day , by Oral route 2013 3 times per day Sildenafil [facility] 0 50 MG Orally Aug 16October 06 tablet 30 Citrate Once a day 2014 10, min before 2015 intercourse Zofran [facility] [address]-96 8 MG Orally Jun 28, 1 tablet Once a day 2013 Carafate [facility] [address]-19 1 GM Orally Aug 16November 14, 1 tablet Twice a day 2014 2014 Diclofenac 75mg [facility] [address]-30 not defined tablet Lisinopril-Hydr [facility] [address]-08 20-12.5 mg Jul 23, take 1 tablet ochlorothiazide 2013 by Oral route 1 time per day for 30 day(s) [place]etta 5 MCG [facility] [address]-62 5 MCG/0.02ML Jul 06Sep 04, 5 mcg Pen Subcutaneous 2013 2014 Twice a day with AM and PM meals GlipiZIDE [facility] [address]-51 5 MG Orally Apr 12, 1 tablet Once a day 2013 Lasix [facility] 07066014246 40 TAKE ONE TABLET BY MOUTH DAILY Flonase [facility] [address]-61 50 MCG/ACT December 06 spray in Nasally Once a , each nostril day 2013 Albuterol [facility] 87467549075 90 Inhalation 2 puffs as Sulfate HFA every 4 hrs needed Janumet [facility] [address]-38 50-1000 MG Jul 05, 1 tablet with Orally Twice a 2013 meals day Aspirin ND 0 81 mg Jul 23, take 1 tablet 2013 (81 mg) by oral route once daily Easy Touch Pen ND 0 31G Ultra fine Jul 07, as directed [place] mini subQ 2013 twice a day Abilify [facility] [address]-05 5 MG Orally 1 tablet Once a day Pantoprazole [facility] [address]-65 40 MG Orally Jul 06, 1 tablet Sodium Once a day 2013 Results No Known Results Summary Purpose eClinicalWorks Submission
--- OUTSIDE RECORDS SUMMARY | 2017-05-11 13:17 | External Medical Summary | Summary of Care ---
[...] USE DIRECTED. Refills: 0 Start 24-Jul-2014 Active GlipiZIDE 10 MG Oral Tablet take one tab twice daily Refills: 0 Parker Crespo M.D. Start 15-Jun-2014 Active Potassium Chloride ER 10 MEQ Oral [...] 90 Refills: 0 Alfonso Daily M.D. Start 22-Apr-2016 Active Allergies and Adverse Reactions Name Dates [...] Father Name Dates Details Family history of acute myocardial infarction (V17.3, Z82.49) Status: Active Family history of cerebrovascular accident (V17.1, Z82.3) Status: Active Brother Name Dates Details Family [...] Encounters Appointment; Provider: Alfonso Daily M.D. On 15-May-2016 09:30 Planned Medications Oxycodone-Acetaminophen 7.5-325 MG Oral Tablet Ordered: 22-Apr-2016 Active Instructions Name Dates Details Instructions not documented Encounters Appointment; Alfonso Daily M.D. On Encounter Diagnosis: Problem not documented 09:00 Appointment; Alfonso Daily M.D. On Encounter Diagnosis: Problem not documented 15:15 Appointment; Alfonso Daily M.D. On 24-Nov-2015 Encounter Diagnosis: Problem not documented 15:30 Appointment; Alfonso Daily M.D. On 26-Oct-2015 Encounter Diagnosis: Problem not documented 10:00 Appointment; Yordan Whalen, PJose On 09-Aug-2014 Encounter Diagnosis: Problem not documented 13:00 Appointment; Reyes Gómez D.O. On 05-Aug-2014 Encounter Diagnosis: Problem not documented 09:00 Appointment; Shuan Oakes M.D. On 04-Aug-2014 Encounter Diagnosis: Problem not documented 09:45 Appointment; Reyes Gómez D.O. On 24-Jul-2014 Encounter Diagnosis: Problem not documented 08:25 Appointment; Yordan Whalen, PJose On 15-Jun-2014 Encounter Diagnosis: Problem not documented 13:00
--- OUTSIDE RECORDS SUMMARY | 2017-05-11 13:17 | External Medical Summary ---
:1960 Author Organization [employer]Works Care Team Providers Name Role Phone Evon Virgen Provider Role Unavailable Allergies No Known Allergies Problems Problem Type Condition ICD-9 Code Onset Dates Condition Status Problem Edema 782.3 Active Problem Coronary atherosclerosis of 414.00 Active unspecified type of vessel, [place] or graft Problem Diabetes mellitus without 250.02 [...]
--- OUTSIDE RECORDS SUMMARY | 2017-05-11 13:17 | External Medical Summary ---
:1960 Author Organization [facility] Address [address] [place], [place] [address] Care Team Providers Name Role Phone Janneth Turpin Unavailable Unavailable PROBLEMS Type Condition ICD9-CM [id number] Onset Condition SNOMED Code Code Code Dates Status Problem Cigarette F17.210 Active 412561104 nicotine dependence, uncomplicated Problem Depression with F41.8 Active 496380517 anxiety Problem GERD K21.9 Active 350773055 (gastroesophageal reflux disease) Problem TIA (transient G45.9 Active 157889369 ischemic attack) Problem Diabetic E11.40 Active 581059038 neuropathy Problem HTN I10 Active 16087206 (hypertension) Problem HLD E78.5 Active 55883090 (hyperlipidemia) Problem Vitamin B12 E53.8 Active 819856945 deficiency Problem OA M19.90 Active 585886245 (osteoarthritis) Problem Obesity (BMI E66.9 Active 889623222 30.0-34.9) Problem Type 2 diabetes E11.65 Active 853608546823123 mellitus with hyperglycemia Problem Allergic rhinitis J30.9 Active 45366436 Assessment TIA (transient G45.9 Jul, Active 511401859 ischemic attack) 2017 Problem ED (erectile N52.9 Active 003478288 dysfunction) ALLERGIES Substance Reaction Event Type Date Status Pioglitazone HCl hives Drug Allergy Jul, Active Gabapentin Unknown Drug Allergy Jul, Active Bactrim Unknown Drug Allergy Jul, Active SOCIAL HISTORY No smoking Hx information available PLAN OF CARE VITAL SIGNS Height 70 in 2016-07-13 Weight 212.0 lbs 2016-07-13 BMI 30.42 kg/m2 2016-07-13 Temperature 98.1 degrees Fahrenheit 2016-07-13 Heart Rate 74 /min 2016-07-13 Respiratory Rate 18 /min 2016-07-13 Oximetry 98 % 2016-07-13 Blood pressure systolic 136 mm Hg 2016-07-13 Blood pressure diastolic 74 mm Hg 2016-07-13 MEDICATIONS Medication Instructions Dosage Frequency Start End Duration Status Date Date Duloxetine HCl Orally once a 1 capsule 24h 22 Dec, 30 day(s) Active 30 MG day 2015 GlipiZIDE ER 10 Orally Once a 1 tablet 24h Jan, days Active MG day 2015 Clopidogrel Orally Once a 1 tablet 24h Jul, day(s) Active Bisulfate 75 MG day 2016 Aspirin 81 mg take 1 Jul, Active tablet (81 2013 mg) by oral route once daily Furosemide 40 TAKE ONE 90 Active TABLET BY MOUTH DAILY Cialis 5 MG Orally Once a 1 tablet 24h Jul, Jan, day(s) Active day 2016 2016 Oxycodone-Acetam Orally every 6 1 tablet as 6h Active inophen 7.5-325 hrs needed MG Atorvastatin Orally Once a 1 tablet 24h Feb, Active Calcium 80 mg day 2013 ProAir HFA 108 Inhalation every 2 puffs as 4h Jun, Active (90 Base) 4 hrs needed 2015 MCG/ACT MetFORMIN HCl ER Orally Once a 2 tablets 24h Jul, days Active (MOD) 1000 MG day with 2015 evening meal Xanax 1 MG Orally once a take 1 24h Oct, days Active day tablet by 2013 Oral route 3 times per day RESULTS No Results PROCEDURES Procedure Date Ordered Related Diagnosis Body Site OFFICE VISIT EST PATIENT LEVEL 4 Jul 13, 2016 IMMUNIZATIONS No Known Immunizations
--- OUTSIDE RECORDS SUMMARY | 2017-05-11 13:17 | External Medical Summary ---
[...] Problem Depression with anxiety F41.8 Active Medications No Known Medications Results No Known Results Summary Purpose eClinicalWorks Submission
--- OUTSIDE RECORDS SUMMARY | 2017-05-11 13:17 | External Medical Summary ---
:1960 Author Organization [facility] Address [address] [place], [place] [address] Care Team Providers Name Role Phone PapiAbrilJanneth Unavailable Unavailable PROBLEMS Type Condition ICD9-CM [id number] Onset Condition SNOMED Code Code Code Dates Status Problem Cigarette F17.210 Active 588120836 nicotine dependence, uncomplicated Problem Depression with F41.8 Active 647770518 anxiety Problem GERD K21.9 Active 690745790 (gastroesophageal reflux disease) Problem Obesity (BMI E66.9 Active 616499939 30.0-34.9) Problem Type 2 diabetes E11.65 Active 063149432927468 mellitus with hyperglycemia Problem Allergic rhinitis J30.9 Active 31974293 Problem ED (erectile N52.9 Active 607037064 dysfunction) Problem TIA (transient G45.9 Active 393880427 ischemic attack) Problem Diabetic E11.40 Active 922241996 neuropathy Problem HTN I10 Active 96846625 (hypertension) Problem HLD E78.5 Active 12506260 (hyperlipidemia) Problem Vitamin B12 E53.8 Active 040629431 deficiency Problem OA M19.90 Active 523192600 (osteoarthritis) ALLERGIES Unknown Allergies SOCIAL HISTORY No smoking Hx information available PLAN OF CARE VITAL SIGNS MEDICATIONS Medication Instructions Dosage Frequency Start End Date Duration Status Date Cetirizine HCl Orally Once a day 1 tablet 24h 18 Dec, 12 Dec, 90 days Active 10 MG as needed 2014 2015 RESULTS No Results PROCEDURES No Known procedures IMMUNIZATIONS No Known Immunizations
--- OUTSIDE RECORDS SUMMARY | 2017-05-11 13:19 | External Medical Summary ---
:1960 Author Organization [facility] Address [address] [place], [place] [address] Care Team Providers Name Role Phone Carly Phelps Unavailable Unavailable PROBLEMS Type Condition ICD9-CM [id number] Onset Condition SNOMED Code Code Code Dates Status Problem Cigarette F17.210 Active 575337847 nicotine dependence, uncomplicated Problem Depression with F41.8 Active 866378714 anxiety Problem GERD K21.9 Active 103872673 (gastroesophageal reflux disease) Problem Obesity (BMI E66.9 Active 810147266 30.0-34.9) Problem Type 2 diabetes E11.65 Active 380118746932043 mellitus with hyperglycemia Problem Allergic rhinitis J30.9 Active 24441807 Problem ED (erectile N52.9 Active 268030671 dysfunction) Problem TIA (transient G45.9 Active 464283545 ischemic attack) Problem Diabetic E11.40 Active 625844566 neuropathy Problem HTN I10 Active 98988024 (hypertension) Problem HLD E78.5 Active 70908747 (hyperlipidemia) Problem Vitamin B12 E53.8 Active 038683332 deficiency Problem OA M19.90 Active 788329659 (osteoarthritis) ALLERGIES Unknown Allergies SOCIAL HISTORY No smoking Hx information available PLAN OF CARE VITAL SIGNS MEDICATIONS Unknown Medications RESULTS No Results PROCEDURES No Known procedures IMMUNIZATIONS No Known Immunizations
--- OUTSIDE RECORDS SUMMARY | 2017-05-11 13:20 | External Medical Summary ---
:1960 Author Organization eClinicalWorks Care Team Providers Name Role Phone Evon Virgen Provider Role Unavailable Allergies No Known Allergies Problems Problem Type Condition ICD-9 Code Onset Dates Condition Status Problem Coronary atherosclerosis of 414.00 Active unspecified type of vessel, [place] or graft Problem Allergic rhinitis 477.9 Active Problem Obesity 278.00 Active Problem Edema 782.3 Active Problem Diabetes mellitus without 250.02 Active mention of complication, type II or unspecified type, uncontrolled Problem Unspecified essential 401.9 Active hypertension Problem Smoker 305.1 Active Problem Encounter for long-term current V58.69 Active use of medication Problem Anxiety and depression 300.4 Active Problem Erectile dysfunction 607.84 Active Problem Lipidemia 272.4 Active Problem GERD (gastroesophageal reflux 530.81 Active disease) Medications No Known Medications Results No Known Results Summary Purpose eClinicalWorks Submission
--- OUTSIDE RECORDS SUMMARY | 2017-05-11 13:20 | External Medical Summary ---
:1960 Author Organization [facility] Address [address] [place], [place] [address] Care Team Providers Name Role Phone Janneth Turpin Unavailable Unavailable PROBLEMS Type Condition ICD9-CM [id number] Onset Condition SNOMED Code Code Code Dates Status Problem Cigarette F17.210 Active 585123119 nicotine dependence, uncomplicated Problem Depression with F41.8 Active 965590236 anxiety Problem GERD K21.9 Active 060149642 (gastroesophageal reflux disease) Problem Obesity (BMI E66.9 Active 397704757 30.0-34.9) Problem Type 2 diabetes E11.65 Active 302265141594887 mellitus with hyperglycemia Problem Allergic rhinitis J30.9 Active 89638649 Problem ED (erectile N52.9 Active 266489737 dysfunction) Problem TIA (transient G45.9 Active 581312363 ischemic attack) Problem Diabetic E11.40 Active 861374543 neuropathy Problem HTN I10 Active 74801402 (hypertension) Problem HLD E78.5 Active 56726968 (hyperlipidemia) Problem Vitamin B12 E53.8 Active 816094550 deficiency Problem OA M19.90 Active 091057561 (osteoarthritis) ALLERGIES Unknown Allergies SOCIAL HISTORY No smoking Hx information available PLAN OF CARE VITAL SIGNS MEDICATIONS Unknown Medications RESULTS No Results PROCEDURES No Known procedures IMMUNIZATIONS No Known Immunizations
--- OUTSIDE RECORDS SUMMARY | 2017-05-11 13:20 | External Medical Summary ---
:1960 Author Organization [employer]ClinicalWorks Care Team Providers Name Role Phone Janneth Turpin Provider Role Unavailable Allergies No Known Allergies Problems Problem Type Condition Code Onset Dates Condition Status Problem Type 2 diabetes mellitus with E11.65 Active hyperglycemia Problem ED (erectile dysfunction) N52.9 Active Problem Allergic rhinitis J30.9 Active Problem OA (osteoarthritis) M19.90 Active Problem HTN (hypertension) I10 Active Problem Vitamin B12 deficiency E53.8 Active Problem GERD (gastroesophageal reflux K21.9 Active disease) Problem Cigarette nicotine dependence, F17.210 Active uncomplicated Problem HLD (hyperlipidemia) E78.5 Active Problem Depression with anxiety F41.8 Active Assessment Screening for colon cancer Z12.11 Active Assessment HLD (hyperlipidemia) E78.5 Active Assessment HTN (hypertension) I10 Active Problem Obesity (BMI 30.0-34.9) E66.9 Active Medications Medication Code Code Instructions Start End Status Dosage System Date Date Cyclobenzaprine [facility] [address]-78 10 MG Orally December 1 tablet HCl Three times a , 29, day [address] [facility] 92950720308 40 Orally Once 1 tablet a day GlipiZIDE ER [facility] [address]-34 10 MG Orally January 1 tablet Once a day 2015 Oxycodone-Acetamin [facility] [address]-24 7.5-325 MG 1 tablet ophen Orally every 6 as needed hrs Lisinopril-Hydroch [facility] [address]-32 20-12.5 MG Jul 23, 1 tablet lorothiazide Orally Once a [address] [facility] [address]-60 100 mg Orally Apr 08Mar 1 tablet Once a day 2014 26, as needed [address] [facility] [address]-23 1 MG Orally October take 1 once a day , tablet by 2013 Oral route 3 times per day Pantoprazole [facility] [address]-33 40 MG Orally Jul 06, 1 tablet Sodium Once a day [address] [facility] [address]-08 80 mg Orally Feb 22, 1 tablet Calcium Once a day 2013 Aspirin NDC 0 81 mg Jul 23, take 1 2013 tablet (81 mg) by oral route once daily MetFORMIN HCl ER [facility] [address]-87 1000 MG Orally Jul 25, 2 tablets (MOD) Once a day 2015 with evening meal Cetirizine HCl [facility] [address]-73 10 MG Orally Jun 24, Jun 1 tablet Once a day 2014 12, as needed 2015 Procedures Procedure Coding System Code Date COMPREHEN METABOLIC PANEL CPT-4 93714 Feb 22, 2016 LIPID PANEL CPT-4 23504 Feb 22, 2016 COMPLETE CBC WAUTO DIFF WBC CPT-4 09472 Feb 22, 2016 ROUTINE VENIPUNCTURE CPT-4 18773 Feb 22, 2016 Results Name Result Date Reference Range Unit Abnormality Flag Comprehensive Metabolic Panel (CMP) ----Alkaline Phosphatase 77 [id number] 40-150 U/L ----Bilirubin Total 0.3 67334142 0.2-1.2 mg/dL ----Creatinine 0.79 09088610 0.72-1.25 mg/dL ----Calcium 9.6 19562089 8.9-10.5 mg/dL ----Sodium 138 86244940 135-144 mEq/L ----Globulin 3.1 41348111 1.8-4.0 g/dL ----Potassium 4.5 22089347 3.5-5.2 mEq/L ----Anion Gap 9 49861038 3-20 ----Chloride 105 33097200 99-111 mEq/L ----AST (SGOT) 17 75305516 5-34 U/L ----CO2 24 46659310 23-31 mEq/L ----Glucose 143 10107162 70-99 mg/dL H ----Albumin 3.9 44847865 3.5-5.0 g/dL ----ALT (SGPT) 22 40132363 0-55 U/L ----BUN 16 59614339 8-26 mg/dL ----Protein 7.0 97373775 6.1-7.7 g/dL Lipid Panel ----VLDL Cholesterol 44 94779920 0-28 mg/dL H ----LDL Cholesterol 208 57948871 0-130 mg/dL H ----Cardiac Risk 7.8 30856093 0.0-5.7 H ----Cholesterol 289 24193305 0-199 mg/dL H ----HDL Cholesterol 37 63240979 40-84 mg/dL L ----Triglycerides 221 25289746 0-149 mg/dL H Venipuncture CBC With Platelet and Differential ----MCHC 35.1 76415636 32.0-36.0 g/dL ----MCH 30.1 32836893 27.0-32.0 pg ----MPV 11.1 58948118 8.8-14.8 fL ----RDW 14.1 57273173 11.5-14.5 % ----Eosinophils 2 48478003 0-4 % ----Basophils 0 54466787 0-2 % ----Immature Granulocytes 0.5 67973694 0.0-1.0 % ----Absolute Neutrophils 3.80 63469762 1.90-7.00 10*3 ----Platelet Count 152 [id number] 150-400 K/uL ----Absolute Eosinophils 0.14 55241914 0.00-0.50 10*3 ----HCT 44.4 59690699 42.0-52.0 % ----Absolute Basophils 0.02 08919325 0.00-0.20 10*3 ----MCV 85.5 94777426 82.0-99.0 fL ----RBC 5.19 63953084 4.60-6.20 10*6/uL ----Absolute Lymphocytes 1.89 21451418 0.80-3.30 10*3 ----Absolute Monocytes 0.38 20146142 0.30-1.00 10*3 ----HGB 15.6 82955410 14.0-18.0 g/dL ----Monocytes 6 46068089 4-11 % ----WBC 6.3 01907985 4.8-10.8 K/uL ----Neutrophils 61 40659777 51-75 % ----Lymphocytes 30 56948734 20-46 % Non-HDL Cholesterol ----Non-HDL Cholesterol 252 57809360 0-159 mg/dL H eGFR ----eGFR >60 96204316 >60 mL/min Summary Purpose eClinicalWorks Submission
--- OUTSIDE RECORDS SUMMARY | 2017-05-11 13:23 | External Medical Summary ---
[...] of 414.00 Active unspecified type of vessel, rosebud or graft Problem Smoker 305.1 Active Problem [...] mg) by oral route once daily Pantoprazole [facility] [address]-78 40 MG Orally Jul 06, 1 tablet Sodium Once a day 2013 Lisinopril-Hydr [facility] [address]-27 20-12.5 MG Jul 23, 1 tablet ochlorothiazide Orally Once a 2013 day Lantus SoloStar [facility] [address]-62 100 UNIT/ML December 10 u Subcutaneous 16, at hs 2014 Atorvastatin [facility] [address]-13 80 MG Orally Feb 22, 1 tablet Calcium Once a day 2013 Abilify [facility] [address]-82 5 MG Orally 1 tablet Once a day Clemastine [facility] [address]-84 1.34 MG Orally 1 tablet as Fumarate Twice a day needed Flonase [facility] [address]-41 50 MCG/ACT December 06 spray in Nasally Once a 13, each nostril day 2013 Zofran [facility] [address]-42 8 MG Orally Jun 28, 1 tablet Once a day 2013 BD Ultra-Fine [facility] 0 31G Ultra fine December use with [place] mini subQ once , lantus daily 2014 Janumet [facility] [address]-64 50-1000 MG Jul 05, 1 tablet with Orally Twice a 2013 meals day Xanax [facility] [address]-40 1 MG Orally October take 1 tablet once a day , by Oral route 2013 3 times per day Lasix [facility] 91867406162 40 Orally Once 1 tablet a day Albuterol [facility] 17217702266 90 Inhalation 2 puffs as Sulfate HFA every 4 hrs needed Diclofenac [facility] [address]-05 75 MG Orally December 1 tablet Sodium twice a day 2014 Viagra [facility] [address]-12 50 MG Orally Feb 22, 1 tablet as Once a day 2013 needed 30 min before anticipated intercourse Procedures Procedure Coding System Code Date ASSAY OF MAGNESIUM CPT-4 49853 December 21, 2014 LIPID PANEL CPT-4 67039 December 21, 2014 GLYCOSYLATED HEMOGLOBIN TEST CPT-4 48773 December 21, 2014 ROUTINE VENIPUNCTURE CPT-4 47088 December 21, 2014 HEPATIC FUNCTION PANEL CPT-4 06431 December 21, 2014 OFFICE VISIT EST PATIENT LEVEL 3 CPT-4 10176 December 21, 2014 Vital Signs Date/Time: December 21, 2014 BMI 31.13 Index Weight 217 lbs Height 70 in Blood Pressure Diastolic 76 mm Hg Blood Pressure Systolic 122 mm Hg Cardiac Monitoring Heart Rate 80 /min Temperature 98 F Respiratory Rate 18 /min Results Name Result Date Reference Range Unit Abnormality Flag Hemoglobin A1c Summary Purpose eClinicalWorks Submission
--- OUTSIDE RECORDS SUMMARY | 2017-05-11 13:23 | External Medical Summary ---
:1960 Author Name GENERATED, SYSTEM Care Team Providers Name Role Phone MD ALEM, MICHELE Primary Care Provider [phone] Reason For Visit Chief Complaint SOB, REATION TO MEDS Social History Functional Status Vital Signs Results Chemistry from 05/02/2017 6:04 [id number] MMOL/L (136-145 MMOL/L) POTASSIUM3.7 MMOL/L (3.5-5.1 MMOL/L) WIKDDGXN233 MMOL/L (98-107 MMOL/L) FVU008.0 MMOL/L (21.0-32.0 MMOL/L) *ANION GAP9.0 MMOL/L (8.0-16.0 MMOL/L) BUN9 MG/DL (7-18 MG/DL) CREATININE1.12 MG/DL (0.70-1.30 MG/DL) *BUN/CREATININE RATIO8.0 L (9.1-17.0 ) NMUPHID821 MG/DL H (65-99 MG/DL) *GFR EST NON AFR CBZHDLSS09 ML/MIN (Reference Range: not available) *GFR EST AFR AMER85 ML/MIN (Reference Range: not available) CALCIUM8.8 MG/DL (8.5-10.1 MG/DL) BILIRUBIN TOTAL0.70 MG/DL (0.20-1.00 MG/DL) TOTAL PROTEIN7.6 GM/DL (6.4-8.2 GM/DL) ALBUMIN3.4 GM/DL (3.4-5.0 GM/DL) *GLOBULIN4.2 GM/DL H (2.3-3.5 GM/DL) *A/G RATIO0.8 L (1.5-2.2 ) ALK PHOS89 U/L (46-116 U/L) ALT (SGPT)37 U/L (14-59 U/L) AST (SGOT)26 U/L (15-37 U/L) MAGNESIUM1.7 MG/DL L (1.8-2.4 MG/DL) OWVWRRX96 U/L (25-115 U/L) FQMTZT271 U/L (73-393 U/L)Hematology from 05/02/2017 6:04 PMWBC6.1 X10e3/UL (3.6 -11.2 X10e3/UL) RBC4.90 X10e6/UL (4.06-5.63 X10e6/UL) SKDBXDSDTC36.7 G/DL (12.5-16.3 G/DL) XXNKVOSYXP78.7 % (36.7-47.1 %) *MCV87.1 FL (80.0-100.0 FL) *MCH29.9 PG (27.0-33.0 PG) *MCHC34.4 G/DL (32.0-36.0 G/DL) *RDW14.6 % (12.3-17.0 %) *RDWSD44.6 (37.1-47.8 ) NRWANXYO27 X10e3/UL L (159-386 X10e3/UL) *MPV9.1 FL (7.4-10.4 FL) AUTOMATED DIFFPERFORMED (Reference Range: not available) SEGS82.2 % (Reference Range: not available) *OHDQZJEMFDQ69.3 % (Reference Range: not available) *MONOCYTES4.4 % (Reference Range: not available) *EOSINOPHILS0.4 % (Reference Range: not available) *BASOPHILS0.7 % (Reference Range: not available) *ABSOLUTE NEUTROPHILS5.00 X10e3/UL (1.80-7.80 X10e3/UL) *ABSOLUTE LYMPHOCYTES0.70 X10e3/UL L (1.00-3.00 X10e3/UL) *ABSOLUTE MONOCYTES0.30 X10e3/UL (0.30-1.00 X10e3/UL) *ABSOLUTE EOSINOPHILS0.00 X10e3/UL (0.00-0.50 X10e3/UL) *ABSOLUTE BASOPHILS0.00 X10e3/UL (0.00-0.20 X10e3/UL)Coagulation from 2016 6:04 PM*PROTHROMBIN TIME11.7 SECONDS H (9.4-11.5 SECONDS) *INR1.10 (0.90-1.10 ) PARTIAL THROMBOPLASTIN TIME26.9 SECONDS (23.0-31.0 SECONDS)DX Radiology from 5:49 PMCHEST 2 VIEWSHistory: cough. Technique: 2 VIEW CHEST Priors: 02/06/2015 Findings: There is unchanged mild left basilar fibrosis. No consolidating infiltrate, pneumothorax or pleural effusions identified. Impression: No evidence acute cardiopulmonary process. Electronically signed by: Chencho Padilla MD Dictated: 05/03/2017 09:39 (Reference Range: not available) Problems Encounter Diagnosis No relevant problems exist. Additional Problems Acute Coronary Syndrome Comment:Problem resolved by [facility] Workflow upon Discharge, Status:Resolved.Chest Pain Comment:Problem resolved by [facility] Workflow upon Discharge, Status:Resolved.Chest Pain Comment:Problem resolved by [facility] Workflow upon Discharge, Status:Resolved.Chronic Pain Comment:Problem resolved by [facility] Workflow upon Discharge, Status:Resolved.Diabetes Mellitus Comment:Problem resolved by [facility] Work[facility] upon Discharge, Status: Resolved.Fall Risk Comment:Problem resolved by [facility] Workflow upon Discharge, Status:Resolved.Transient Cerebral Ischemia Comment:Problem resolved by [facility] Work[facility] upon Discharge, Status:Resolved. Encounters Encounter Diagnosis No relevant problems exist. Plan of Care Procedures Completed , on 07/12/2013 12:00 AMCompleted , on 07/12/2013 12:00 AMCompleted , on 12:00 AMCompleted , on 07/12/2013 12:00 AMCompleted , on 07/12/2013 12:00 AM Immunizations No immunizations administered or ordered. Hospital Course Hospital Discharge Instructions Allergies, Adverse Reactions, Alerts This section is sales and service representative of the current allergy information, at the time of the CCD generation. In the case of regeneration of the CCD, the allergy information may not reflect the state of known allergies at the time of the CCD' s subject visit. pioglitazone causes Moderate itching. Onset itching.Bactrim causes Mild soa.Latex Allergy has not been assessed.IV Contrast Allergy has not been assessed. Medication Medication reconciliation has not been performed.
--- OUTSIDE RECORDS SUMMARY | 2017-05-11 13:23 | External Medical Summary ---
[...] Instructions Start End Date Status Dosage Date Azithromycin [facility] [address]337 250 MG Orally January 15January 20, 2 tablets 6-09 Once a day 2015 2015 on the first day, then 1 tablet daily for 4 days Results No Known Results Summary Purpose eClinicalWorks Submission
--- OUTSIDE RECORDS SUMMARY | 2017-05-11 13:23 | External Medical Summary | Summary of Care ---
:1960 Author Name Lena Daily M.D. Address [address] [place], [place] [id number] Care Team Providers Name Role Phone Jeffrey [...] Status: Active Fibromyalgia (729.1, M79.7) Status: Active Medications Name Dates Details Aspirin [...] Screen PM - TramadolQuest performed at : [facility] [address], [address], [place], [address], Labora 08:03 PROFILE [id number] dre Director: Brit Looney Ph.D.Quest Collection Date/Time: [id number] Results Received Date/Time: [id number] Reported Date/Time: [id number] Management Profile 1 w/ Confirm ation, Urine [...] > or=20.0 low threshold) Comments: [AP]----- Specific [place] 1.014 (Better) Range: > or=1.003 Comments: [AP]----- [...] Screen PM - [facility]olQuest performed at: , [facility] [address] [place] [address], [address], [place], [address], Labora Amphetamines with D/L tory Director: Brit Looney Ph.D.Quest Collection Date/Time: [id number] Results Received Date/Time: [id number] Reported Date/Time: [place] [id number] Prescribed Drug 1 Tramadol (Better) Comments: [AP]----- [...] Drug Screen PM - TramadolQuest performed at: [facility], [address] [place] [address], [address], [place], [address], Labora Barbiturates [id number] tor Director: Brit Looney Ph.D.Quest Collection Date/Time: [id number] Results Received Date/Time: [id number] Reported Date/Time: Prescribed Drug 1 Tramadol (Better) [...] Screen PM - TramadolQuest performed at : [facility], [address] [place] [address], [address], [place], [address], Labora Metabolite [id number] tor Director: Brit Looney Ph.D.Quest Collection Date/Time: Results Received Date/Time: Reported Date/Time: Prescribed Drug 1 Tramadol (Better) [...] Drug Screen PM - TramadolQuest performed at: [facility], [address] [place] [address], [address], [place], [address], Labora Phencyclidine [id number] dre Director: Brit Looney Ph.D.Quest Collection Date/Time: [id number] Results Received Date/Time: [id number] Reported Date/Time: Prescribed Drug 1 Tramadol (Better) [...] Screen PM - TramadolQuest performed at : [facility], [address], [place], [address], [facility] 10:46 Metabolites [id number] [facility] Director: Brit Looney Ph.D.Quest Collection Date/Time: [id number] Results Received Date/Time: [id number] Reported Date/Time: Prescribed Drug 1 TramadolZ:\[id number] Comments: [AP]----- 612050_2.PDF (Better) Prescribed Drug 2 Tramadol (Better) Comments: [AP]----- Alcohol Metabolites NEGATIVE ng/mL Range: <500 (Better) Comments: [AP]----- medMATCH Alcohol Metab CONSISTENT Comments: [AP]----- (Better) Please note: SEE NOTE (Better) Comments: * These results are for medical treatment only Analysis was performed as non-forensic testing *For assistance with interpreting these drug results,please contact a [facility] ToxicologySpecial ist: [phone] TOX ( ),M-F, 8am-6pm EST.[AP]----- COMMENT SEE [...] Screen PM - TramadolQuest performed at: , [facility], [address], [place], [address], [facility] I06752 [facility] Director: Brit Looney Ph.D.Quest Collection Date/Time: [id number] Results Received Date/Time: [id number] Reported Date/Time: Desmethyltramadol NEGATIVEZ:\[id number] Range: <100 612050_21.PDF Comments: [AP]----- ng/mL (Better) [...]
--- OUTSIDE RECORDS SUMMARY | 2017-05-11 13:23 | External Medical Summary ---
:1960 Author Organization eClinicalWorks Care Team Providers Name Role Phone Janneth Turpin Provider Role Unavailable Allergies No Known Allergies Problems Problem Type Condition ICD-9 Code Onset Dates Condition Status Problem Coronary atherosclerosis of 414.00 Active unspecified type of vessel, [place] or graft Problem Allergic rhinitis 477.9 Active Problem Obesity 278.00 Active Problem Edema 782.3 Active Problem Diabetes mellitus without 250.02 Active mention of complication, type II or unspecified type, uncontrolled Problem Unspecified essential 401.9 Active hypertension Problem Smoker 305.1 Active Problem Encounter for long-term current V58.69 Active use of medication Problem Anxiety and depression 300.00 Active Problem Erectile dysfunction 607.84 Active Problem Lipidemia 272.4 Active Problem GERD (gastroesophageal reflux 530.81 Active disease) Medications Medication Code System Code Instructions Start End Date Status Dosage Date Atorvastatin [facility] 71461-35 80 mg Orally Feb 22, 1 tablet Calcium 41-45 Once a day 2013 Results No Known Results Summary Purpose Family Pet[employer] Submission
--- OUTSIDE RECORDS SUMMARY | 2017-05-11 13:23 | External Medical Summary ---
[...] Problem Depression with anxiety F41.8 Active Assessment Type 2 diabetes mellitus with E11.65 Active hyperglycemia Assessment Vitamin B12 deficiency E53.8 Active Assessment Fatigue R53.83 Active Problem Obesity (BMI 30.0-34.9) E66.9 Active Medications Medication Code Code Instructions Start End Status Dosage System Date Date Lasix [facility] 82246901182 40 Orally Once 1 tablet a day Cyclobenzaprine [facility] [address]-78 10 MG Orally December 1 tablet HCl Three times a 30, 29, day 2015 2015 Pantoprazole [facility] [address]-63 40 MG Orally Jul 06, 1 tablet Sodium Once a day 2013 Cetirizine HCl [facility] [address]-85 10 MG Orally Jun 24, Jun 1 tablet Once a day 2014 12, as needed 2015 Atorvastatin [facility] [address]-27 80 mg Orally Feb 22, 1 tablet Calcium Once a day 2013 Lisinopril-Hydroch [facility] [address]-35 20-12.5 MG Jul 23, 1 tablet lorothiazide Orally Once a 2013 day MetFORMIN HCl ER [facility] [address]-99 1000 MG Orally Jul 25, 2 tablets (MOD) Once a day 2015 with evening meal Aspirin ND 0 81 mg Jul 23, take 1 2013 tablet (81 mg) by oral route once daily Viagra [facility] [address]-95 100 mg Orally Apr 08Mar 1 tablet Once a day 2014, as needed 2015 Xanax [facility] [address]-08 1 MG Orally October 1 once a day , tablet by 2013 Oral route 3 times per day Oxycodone-Acetamin [facility] [address]-48 7.5-325 MG 1 tablet ophen Orally every 6 as needed hrs GlipiZIDE ER [facility] [address]-47 10 MG Orally January 1 tablet Once a day 2015 Procedures Procedure Coding System Code Date VITAMIN B12 INJECTION CPT-4 J3420 January 24, 2016 THERPROPHDIAG INJ, SCIM CPT-4 21574 January 24, 2016 OFFICE VISIT EST PATIENT LEVEL 3 CPT-4 96039 January 24, 2016 COMPREHEN METABOLIC PANEL CPT-4 05692 January 24, 2016 COMPLETE CBC WAUTO DIFF WBC CPT-4 41607 January 24, 2016 ROUTINE VENIPUNCTURE CPT-4 29210 January 24, 2016 Vital Signs Date/Time: January 24, 2016 BMI 28.41 Index Weight 198.0 lbs Height 70 in Blood Pressure Diastolic 70 mm Hg Blood Pressure Systolic 122 mm Hg Cardiac Monitoring Heart Rate 86 /min Temperature 98.7 F Oximetry 98 % Respiratory Rate 18 /min Results Name Result Date Reference Range Unit Abnormality Flag Comprehensive Metabolic Panel (CMP) ----Alkaline Phosphatase 85 98842737 40-150 U/L ----Bilirubin Total 0.7 84086891 0.2-1.2 mg/dL ----Creatinine 1.22 18050525 0.72-1.25 mg/dL ----Calcium 9.6 40029338 8.9-10.5 mg/dL ----Sodium 131 14700252 135-144 mEq/L L ----Globulin 3.4 51063289 1.8-4.0 g/dL ----Potassium 4.5 97328939 3.5-5.2 mEq/L ----Anion Gap 12 61400673 3-20 ----Chloride 96 61493380 99-111 mEq/L L ----AST (SGOT) 17 20160124 5-34 U/L ----CO2 23 15471039 23-31 mEq/L ----Glucose 515 73022658 70-99 mg/dL CH ----Albumin 4.1 00763782 3.5-5.0 g/dL ----ALT (SGPT) 25 46017587 0-55 U/L ----BUN 19 20160124 8-26 mg/dL ----Protein 7.5 30709811 6.1-7.7 g/dL eGFR ----eGFR >60 01801428 >60 mL/min OTHER-Therapeutic Injection Fee CBC With Platelet and Differential ----MCHC 35.4 75539338 32.0-36.0 g/dL ----MCH 29.1 60988553 27.0-32.0 pg ----MPV 10.6 10239401 8.8-14.8 fL ----RDW 13.6 60027118 11.5-14.5 % ----Eosinophils 1 23937193 0-4 % ----Basophils 0 75488888 0-2 % ----Immature Granulocytes 0.2 49631331 0.0-1.0 % ----Absolute Neutrophils 7.20 74822386 1.90-7.00 10*3 H ----Platelet Count 133 90231448 150-400 K/uL L ----Absolute Eosinophils 0.09 70571746 0.00-0.50 10*3 ----HCT 44.3 09645725 42.0-52.0 % ----Absolute Basophils 0.02 20800718 0.00-0.20 10*3 ----MCV 82.0 67696903 82.0-99.0 fL ----RBC 5.40 69478848 4.60-6.20 10*6/uL ----Absolute Lymphocytes 1.37 97954824 0.80-3.30 10*3 ----Absolute Monocytes 0.50 12667984 0.30-1.00 10*3 ----HGB 15.7 17305336 14.0-18.0 g/dL ----Monocytes 5 12832879 4-11 % ----WBC 9.2 51229620 4.8-10.8 K/uL ----Neutrophils 78 07856253 51-75 % H ----Lymphocytes 15 03183745 20-46 % L Venipuncture Summary Purpose eClinicalWorks Submission
--- OUTSIDE RECORDS SUMMARY | 2017-05-11 13:23 | External Medical Summary | Summary of Care ---
[...] to report Results Date Description Value Details 7-Liset-2016 16:18 XRay SHOULDER-Right Comments: Exam Date: 01/12/2016 15: 31Dictation Date: 01/12/2016 16:18 X SHOULDER COMP (MIN 2V) RT (Better) 16:18 XRay SHOULDER-Left Comments: Exam Date: 01/12/2016 15:30Dictation Date: 01/12/2016 16:18 X SHOULDER COMP (MIN 2V) LT (Better) Plan of Care Planned Observations Name Dates Details Planned Goals not documented Goal Planned Encounters Appointment; Provider: Alfonso Daily On 15-Mar-2016 10:30 [...]
--- OUTSIDE RECORDS SUMMARY | 2017-05-11 13:23 | External Medical Summary ---
[...] Problem Depression with anxiety F41.8 Active Assessment HLD (hyperlipidemia) E78.5 Active Assessment HTN (hypertension) I10 Active Assessment Screening for colon cancer Z12.11 Active Assessment Type 2 diabetes mellitus with E11.65 Active hyperglycemia Assessment Vitamin B12 deficiency E53.8 Active Problem Obesity (BMI 30.0-34.9) E66.9 Active Medications Medication Code Code Instructions Start End Status Dosage System Date Date Cyclobenzaprine [facility] [address]-83 10 MG Orally December 1 tablet HCl Three times a , , 2015 MetFORMIN HCl ER [facility] [address]-16 1000 MG Orally Jul 25, 2 tablets (MOD) Once a day 2015 with evening meal Cetirizine HCl [facility] [address]-82 10 MG Orally Jun 24, Jun 1 tablet Once a day 2014 12, as needed 2015 Pantoprazole [facility] [address]-80 40 MG Orally Jul 06, 1 tablet Sodium Once a day 2013 GlipiZIDE ER [facility] [address]-21 10 MG Orally January 1 tablet Once a day 2015 Lasix [facility] 46926266245 40 Orally Once 1 tablet a day Atorvastatin [facility] [address]-79 80 mg Orally Feb 22, 1 tablet Calcium Once a day 2013 Xanax [facility] [address]-37 1 MG Orally October take 1 once a day , tablet by 2013 Oral route 3 times per day Viagra [facility] [address]-94 100 mg Orally Apr 08Mar 1 tablet Once a day 2014, as needed 2015 Aspirin ND 0 81 mg Jul 23, take 1 2013 tablet (81 mg) by oral route once daily Oxycodone-Acetamin [facility] [address]-69 7.5-325 MG 1 tablet ophen Orally every 6 as needed hrs Lisinopril-Hydroch [facility] [address]-53 20-12.5 MG Jul 23, 1 tablet lorothiazide Orally Once a 2013 day Procedures Procedure Coding System Code Date OFFICE VISIT EST PATIENT LEVEL 3 CPT-4 86887 Feb 20, 2016 VITAMIN B12 INJECTION CPT-4 J3420 Feb 20, 2016 GLYCOSYLATED HEMOGLOBIN TEST CPT-4 70234 Feb 20, 2016 THERPROPHDIAG INJ, SCIM CPT-4 08424 Feb 20, 2016 Vital Signs Date/Time: Feb 20, 2016 BMI 29.27 Index Weight 204.0 lbs Height 70 in Blood Pressure Diastolic 68 mm Hg Blood Pressure Systolic 102 mm Hg Cardiac Monitoring Heart Rate 82 /min Temperature 98.0 F Oximetry 98 % Respiratory Rate 18 /min Results Name Result Date Reference Range Unit Abnormality Flag Hemoglobin A1C - IH ----Hemoglobin A1c 11.3 20160220 4.0 - 6.0 OTHER-Therapeutic Injection Fee Summary Purpose eClinicalWorks Submission
--- OUTSIDE RECORDS SUMMARY | 2017-05-11 13:24 | External Medical Summary ---
:1960 Author Organization eClinicalWorks Care Team Providers Name Role Phone Evon Vigren Provider Role Unavailable Allergies No Known Allergies Problems Problem Type Condition ICD-9 Code Onset Dates Condition Status Problem Edema 782.3 Active Problem Coronary atherosclerosis of 414.00 Active unspecified type of vessel, [place] or graft Problem Diabetes mellitus without 250.02 [...]
--- OUTSIDE RECORDS SUMMARY | 2017-05-11 13:25 | External Medical Summary ---
:1960 Author Organization [facility] Address [address] [place], [place] [address] Care Team Providers Name Role Phone Carly Phelps Unavailable Unavailable PROBLEMS Type Condition ICD9-CM [id number] Onset Condition SNOMED Code Code Code Dates Status Problem Cigarette F17.210 Active 070583657 nicotine dependence, uncomplicated Problem Depression with F41.8 Active 542529999 anxiety Problem GERD K21.9 Active 223550507 (gastroesophageal reflux disease) Problem TIA (transient G45.9 Active 190924613 ischemic attack) Problem Diabetic E11.40 Active 731372727 neuropathy Problem HTN I10 Active 54720138 (hypertension) Problem HLD E78.5 Active 91844977 (hyperlipidemia) Problem Vitamin B12 E53.8 Active 474167410 deficiency Problem OA M19.90 Active 416424744 (osteoarthritis) Problem Obesity (BMI E66.9 Active 613486330 30.0-34.9) Problem Type 2 diabetes E11.65 Active 734810096183606 mellitus with hyperglycemia Assessment Muscle spasm M62.838 Sep, Active 81633922 2017 Problem Allergic rhinitis J30.9 Active 72251712 Assessment Left sided R10.9 Sep, Active 306033586 abdominal pain 2017 Problem ED (erectile N52.9 Active 091966165 dysfunction) ALLERGIES Substance Reaction Event Type Date Status Pioglitazone HCl hives Drug Allergy Sep, Active Gabapentin Unknown Drug Allergy Sep, Active Bactrim Unknown Drug Allergy Sep, Active SOCIAL HISTORY No smoking Hx information available PLAN OF CARE Activity Details Pending Test CBC With Platelet and Differential Pending Test Comprehensive Metabolic Panel (CMP) Pending Test Venipuncture 1 Week,Reason: VITAL SIGNS Height 5 ft 10 in in 2016-10-05 Weight 220 lbs 2016-10-05 BMI 31.56 kg/m2 2016-10-05 Temperature 98.2 degrees Fahrenheit 2016-10-05 Heart Rate 94 /min 2016-10-05 Respiratory Rate 18 /min 2016-10-05 Oximetry 96 % 2016-10-05 Blood pressure systolic 122 mm Hg 2016-10-05 Blood pressure diastolic 70 mm Hg 2016-10-05 MEDICATIONS Medication Instructions Dosage Frequency Start End Duration Status Date Date Furosemide 40 TAKE ONE 90 Active TABLET BY MOUTH DAILY Xanax 1 MG Orally once a take 1 24h Oct, days Active day tablet by 2013 Oral route 3 times per day Atorvastatin Orally Once a 1 tablet 24h Feb, days Active Calcium 80 mg day 2013 Oxycodone-Acetamin Orally every 6 1 tablet 6h Active ophen 7.5-325 MG hrs as needed Lisinopril-Hydroch Orally Once a 1 tablet 24h Jul, Active lorothiazide day 2013 20-12.5 MG GlipiZIDE ER 10 MG Orally Once a 1 tablet 24h Jan, Active day 2015 Duloxetine HCl 30 Orally once a 1 capsule 24h Jun, day(s) Active MG day 2015 ProAir HFA 108 (90 Inhalation 2 puffs as 4h Jun, Active Base) MCG/ACT every 4 hrs needed 2015 Clopidogrel Orally Once a 1 tablet 24h Jul, days Active Bisulfate 75 MG day 2016 Cyclobenzaprine Orally Three 1 tablet Sep, Oct, 10 days Active HCl 10 MG times a day as 2016 2016 needed MetFORMIN HCl ER Orally twice a 2 tablets 12h Aug, days Active 500 MG day 2016 Cialis 5 MG Orally Once a 1 tablet 24h Jul, Jan, 30 day(s) Active day 2016 2016 RESULTS Name Result Date Reference Range Urinalysis (UA) - IH Color yellow Character clear Blood neg Glucose neg 0 - 0 Bilirubin neg Ketones neg 0 - 0 Specific [place] 1.025 pH 5.5 Leukocytes neg Protein neg 0 - 0 Nitrates neg Urobilirubin neg 0.2 - 1 CBC With Platelet and Differential 2016-10-05 WBC 4.2 4.8-10.8 RBC 4.16 4.60-6.20 HGB 12.7 14.0-18.0 HCT 36.4 42.0-52.0 MCV 87.5 82.0-99.0 MCH 30.5 27.0-32.0 MCHC 34.9 32.0-36.0 RDW 15.0 11.5-14.5 MPV 11.0 8.8-14.8 Platelet Count 109 150-400 Immature Granulocytes 0.2 0.0-1.0 Absolute Neutrophils 2.75 1.90-7.00 Absolute Lymphocytes 0.99 0.80-3.30 Absolute Monocytes 0.32 0.30-1.00 Absolute Eosinophils 0.14 0.00-0.50 Absolute Basophils 0.01 0.00-0.20 Neutrophils 65 51-75 Lymphocytes 24 20-46 Monocytes 8 4-11 Eosinophils 3 0-4 Basophils 0 0-2 Comprehensive Metabolic Panel (CMP) 2016-10-05 Glucose 107 70-99 BUN 10 8-26 Creatinine 0.74 0.72-1.25 Calcium 8.4 8.4-10.2 Sodium 140 135-144 Potassium 3.6 3.5-5.2 Chloride 108 99-111 CO2 26 23-31 Albumin 3.8 3.5-5.0 Bilirubin Total 0.7 0.2-1.2 Alkaline Phosphatase 73 40-150 Protein 6.9 6.1-7.7 ALT (SGPT) 19 0-55 AST (SGOT) 24 5-34 Anion Gap 6 3-20 Globulin 3.1 1.8-4.0 eGFR 2016-10-05 eGFR >60 >60 Venipuncture 2016-10-05 PROCEDURES Procedure Date Ordered Related Diagnosis Body Site OFFICE VISIT EST PATIENT LEVEL 4 October 05, 2016 ROUTINE VENIPUNCTURE October 05, 2016 COMPLETE CBC WAUTO DIFF WBC October 05, 2016 COMPREHEN METABOLIC PANEL October 05, 2016 URINALYSIS NONAUTO WO SCOPE October 05, 2016 IMMUNIZATIONS No Known Immunizations
--- OUTSIDE RECORDS SUMMARY | 2017-05-11 13:25 | External Medical Summary | Summary of Care ---
:1960 Author Name Lena Daily M.D. Address [address] [place], [place] [address] Care Team Providers Name Role Phone Jeffrey [...]
--- OUTSIDE RECORDS SUMMARY | 2017-05-11 13:25 | External Medical Summary ---
:1960 Author Organization [employer] Care Team Providers Name Role Phone Janneth Turpin Provider Role Unavailable Allergies No Known Allergies Problems Problem Type Condition ICD-9 Code Onset Dates Condition Status Problem Coronary atherosclerosis of 414.00 Active unspecified type of vessel, nikolai or graft Problem Allergic rhinitis 477.9 Active [...] Instructions Start End Date Status Dosage Date Viagra [facility] 49691-60 50 MG Orally Feb 18, 1 tablet as 10-30 Once a day 2013 needed 30 min before anticipated intercourse Results No Known Results Summary Purpose [employer] Submission
--- OUTSIDE RECORDS SUMMARY | 2017-05-11 13:25 | External Medical Summary ---
:1960 Author Name [facility], SYSTEM Care Team Providers Name Role Phone UNASSIGNED DOCTOR MD LILIANE DOCTOR Primary Care Provider [phone] Reason For Visit Reason for Visit from 07/10/2016 3:58 AM:Pt Stated Reason for Adm : Left sided weakness Chief Complaint LEFT SIDE NUMBNESS Social History Social History from 07/10/2016 3:53 PM:Tobacco Use? : Current Some Day SmokerSocial History from 07/10/2016 3:58 AM:Tobacco Use? : Current Some Day Smoker Functional Status Functional Status from 07/10/2016 8:40 AM:LOC : AlertOriented To : Person,Place, Time,EventWeight Bearing Status : FullAssist Level : Independent# Assists : IndependentFunctional Status from 07/10/2016 3:58 AM:LOC : AlertOriented To : Person,Place,Time,EventWeight Bearing Status : FullAssist Level : Independent# Assists : 1 Vital Signs Hospital Vital Signs from 07/10/2016 10:59 AM:Height : 5/11 ft,inTemperature : 96.0 FPulse : 76Respirations : 20BP : 129/81Hospital Vital Signs from 07/10/2016 8 :45 AM:Height : 5/11 ft,inHospital Vital Signs from 07/10/2016 8:40 AM:Heart Rate : 66Hospital Vital Signs from 07/10/2016 7:37 AM:Height : 5/11 ft,inTemperature : 96.0 FPulse : 70Respirations : 20BP : 121/68Hospital Vital Signs from 07/10/2016 3 :58 AM:Weight : 94.9/ kgHeight : 5/11 ft,inHospital Vital Signs from 07/10/2016 3: 30 AM:Weight : 94.9/ kgHeight : 5/11 ft,inTemperature : 97.1 FPulse : 75Respirations : 20BP : 120/77 Results Chemistry from 07/10/2016 10:13 AMTROPONIN-I<0.017 NG/ML (0.000-0.056 NG/ML) Chemistry from 07/10/2016 4:29 AM*EST AVG HJHMBGT457.3 gm/dl TROPONIN-I<0.017 NG/ML (0.000-0.056 NG/ML) HEMOGLOBIN A1C8.5 % H (4.5-6.2 %)MRI from 07/10/2016 12:18 PMMRI BRAIN W/O_W/ CONTRASTHistory: Cardiovascular Accident . Left facial numbness and weakness as well as left upper and lower extremity weakness and numbness. Technique: Pre and Post contrast images were performed after the administration of 17 milliliters of Prohance intravenous contrast. Priors: None. Findings: The ventricles, sulci, and cisterns appear within normal limits. There is no midline shift. Normal vascular flow voids are seen at the skull base. The yap-white matter differentiation is within normal limits. There is no focus of restricted diffusion seen to suggest acute stroke. No space occupying lesions seen. The visualized paranasal sinuses and mastoid air cells are unremarkable. There is no evidence of suspicious enhancement. Impression: Unremarkable MRI examination of the brain. Electronically signed by: Chencho Padilla MD Dictated: 07/10/2016 13:06 Problems Encounter Diagnosis Chest Pain Status:Active.Chronic Pain Status:Active.Diabetes Mellitus Status: Active.Fall Risk Status:Active.Transient Cerebral Ischemia Status: Active.Additional Problems Acute Coronary Syndrome Comment:Problem resolved by [facility] Workflow upon Discharge, Status:Resolved. Encounters Encounter Diagnosis Chest Pain Status:Active.Chronic Pain Status:Active.Diabetes Mellitus Status: Active.Fall Risk Status:Active.Transient Cerebral Ischemia Status:Active. Plan of Care Follow-up Appointments from 07/10/2016 3:53 PM:Address # 1 : [facility]: [facility] [address] [place] - Treatment Plan from 2016 2:08 PM:Care Management Note :Patient was admitted as observation d/t left arm numbness and pain and left facial numbness and droop. Troponin's were negative. CT of the head, Carotid, and MRI of the brain were completed and were negative. Patient did receive a dose of PO potassium, Neuro is following, and placed on tele. No concerns noted by nursing staff. Anticipate a discharge later today. CM will continue to follow.K 3.3, glucose 59739.0, 70, 20, 121/68, 97% RA Procedures Completed , on 07/12/2013 12:00 AMCompleted , on 07/12/2013 12:00 AMCompleted , on 12:00 AMCompleted , on 07/12/2013 12:00 AMCompleted , on 07/12/2013 12:00 AM Immunizations No immunizations administered or ordered. Hospital Course Hospital Discharge Instructions How to care for yourself at home from 07/10/2016 3:53 PM:Discharge Activity : Activity as toleratedDischarge Diet : As before hospitalizationCall your doctor if: : Fever over 101 F or severe chills,Chest pain or other unexplained symptoms ,Tingling or numbness develops,A sudden increase or decrease in weight,You have persistent or worsening symptoms,If you have Heart Failure and you gain 3 pounds within 1 week or your symptoms worsen. (Weigh at home tomorrow morning) Specific Discharge Teaching Instructions provided: : NoDischarge on Warfarin : No Allergies, Adverse Reactions, Alerts pioglitazone causes Moderate itching. Onset itching.Bactrim causes Mild soa.No Latex Allergy.No IV Contrast Allergy. Medication It is the responsibility of the patient or patient vaccine customer representative to confirm the list of medicationswith either the patient's personal care provider or the patient's follow-up care provider to ensure the patient has an appropriate list of medications to take at home. Discharge medicationsContinued medicationsalbuterol sulfate (ProAir HFA) 90 mcg HFA Aerosol Inhaler, Ordered By: ALEXI ALBERT MD Directions: 2 puff by inhalation every six hours PRN shortness of breath ALPRAZolam (XANax) 1 mg Tablet, Ordered By: ALEXI ALBERT MD Directions: 1 tablet oral daily at bedtime aspirin (Aspirin Low Dose) 81 mg tablet,delayed release (DR/EC), Ordered By: ALEXI ALBERT MD Directions: 1 tablet oral daily atorvastatin (Lipitor) 80 mg Tablet, Ordered By: ALEXI ALBERT MD Directions: 1 tablet oral daily at bedtime cetirizine (ZyrTEC) 10 mg Tablet, Ordered By: ALEXI ALBERT MD Directions: 1 tablet oral daily furosemide 40 mg Tablet, Ordered By: ALEXI ALBERT MD Directions: 1 tablet oral daily glipiZIDE 10 mg Tablet, Ordered By: ALEXI ALBERT MD Directions: 1 tablet oral twice a day before meals levocetirizine 5 mg Tablet, Ordered By: ALEXI ALBERT MD Directions: 1 tablet oral daily oxyCODONE-acetaminophen (Percocet) 7.5 mg-325 mg Tablet, Ordered By: ALEXI ALBERT MD Directions: 1 tablet oral three times a day PRN pain Stopped medicationsmetFORMIN 1,000 mg Tablet Directions: 1 tablet oral daily with or after meal Additional Instructions: START 09/08/13
--- OUTSIDE RECORDS SUMMARY | 2017-05-11 13:25 | External Medical Summary ---
:1960 Author Organization [facility] Address [address] [place], [place] [address] Care Team Providers Name Role Phone Papi Janneth Unavailable Unavailable PROBLEMS Type Condition ICD9-CM [id number] Onset Condition SNOMED Code Code Code Dates Status Problem Cigarette F17.210 Active 079458047 nicotine dependence, uncomplicated Problem Depression with F41.8 Active 857303287 anxiety Problem GERD K21.9 Active 394284816 (gastroesophageal reflux disease) Problem Obesity (BMI E66.9 Active 045365258 30.0-34.9) Problem Type 2 diabetes E11.65 Active 728199866817152 mellitus with hyperglycemia Problem Allergic rhinitis J30.9 Active 09516192 Problem ED (erectile N52.9 Active 545504277 dysfunction) Problem TIA (transient G45.9 Active 110700705 ischemic attack) Problem Diabetic E11.40 Active 056386376 neuropathy Problem HTN I10 Active 31339955 (hypertension) Problem HLD E78.5 Active 67212563 (hyperlipidemia) Problem Vitamin B12 E53.8 Active 020660935 deficiency Problem OA M19.90 Active 684791506 (osteoarthritis) ALLERGIES Unknown Allergies SOCIAL HISTORY No smoking Hx information available PLAN OF CARE VITAL SIGNS MEDICATIONS Medication Instructions Dosage Frequency Start End Date Duration Status Date Clopidogrel Orally Once a day 1 tablet 24h Jul, days Active Bisulfate 75 MG 2016 RESULTS No Results PROCEDURES No Known procedures IMMUNIZATIONS No Known Immunizations
--- OUTSIDE RECORDS SUMMARY | 2017-05-11 13:25 | External Medical Summary ---
[...] Active Problem HLD (hyperlipidemia) E78.5 Active Assessment HLD (hyperlipidemia) E78.5 Active Assessment HTN (hypertension) I10 Active Problem Obesity (BMI 30.0-34.9) E66.9 Active Problem Type 2 diabetes mellitus with E11.65 Active hyperglycemia Medications Medication Code Code Instructions Start End Status Dosage System Date Date GlipiZIDE ER [facility] [address]-49 10 MG Orally January 23, 1 tablet Once a day 2015 Atorvastatin [facility] [address]-61 80 mg Orally Feb 22, 1 tablet Calcium Once a day 2013 Xanax [facility] [address]-68 1 MG Orally October take 1 once a day 2013 tablet by Oral route 3 times per day Furosemide [facility] 36791088518 40 TAKE ONE TABLET BY MOUTH DAILY Aspirin ND 0 81 mg Jul 23, take 1 2013 tablet (81 mg) by oral route once daily Oxycodone-Aceta [facility] [address]-49 7.5-325 MG 1 tablet minophen Orally every 6 as needed hrs MetFORMIN HCl [facility] [address]-81 1000 MG Orally Jul 25, 2 tablets ER (MOD) Once a day 2015 with evening meal Cetirizine HCl [facility] [address]-81 10 MG Orally Dec 18, Dec 12, 1 tablet Once a day 2014 2015 as needed Gabapentin [facility] [address]-47 300 MG Orally May 22, 1 capsule at bedtime 2016 Procedures Procedure Coding System Code Date LIPID PANEL CPT-4 10833 May 23, 2016 ROUTINE VENIPUNCTURE CPT-4 25519 May 23, 2016 COMPREHEN METABOLIC PANEL CPT-4 95272 May 23, 2016 Results Name Result Date Reference Range Unit Abnormality Flag Lipid Panel ----HDL Cholesterol 29 43382320 40-84 mg/dL L ----LDL Cholesterol 52 35498246 0-130 mg/dL ----VLDL Cholesterol 47 50550409 0-28 mg/dL H ----Cardiac Risk 4.4 99782838 0.0-5.7 ----Cholesterol 128 54695054 0-199 mg/dL ----Triglycerides 235 61527872 0-149 mg/dL H Non-HDL Cholesterol ----Non-HDL Cholesterol 99 16568084 0-159 mg/dL Venipuncture Comprehensive Metabolic Panel (CMP) ----Chloride 106 40799181 99-111 mEq/L ----Potassium 3.8 73551451 3.5-5.2 mEq/L ----Albumin 4.0 28788934 3.5-5.0 g/dL ----CO2 26 08933096 23-31 mEq/L ----Alkaline Phosphatase 99 29381304 40-150 U/L ----Protein 7.1 89284164 6.1-7.7 g/dL ----Bilirubin Total 0.8 98810780 0.2-1.2 mg/dL ----Anion Gap 11 47480317 3-20 ----Calcium 9.1 68555690 8.9-10.5 mg/dL ----Globulin 3.1 93734393 1.8-4.0 g/dL ----Sodium 143 02017376 135-144 mEq/L ----BUN 13 13608371 8-26 mg/dL ----ALT (SGPT) 30 35700527 0-55 U/L ----AST (SGOT) 34 36092810 5-34 U/L ----Creatinine 0.79 64441138 0.72-1.25 mg/dL ----Glucose 112 82727083 70-99 mg/dL H eGFR ----eGFR >60 74807655 >60 mL/min Summary Purpose eClinicalWorks Submission
--- OUTSIDE RECORDS SUMMARY | 2017-05-11 13:25 | External Medical Summary ---
[...] 477.9 Active Problem Obesity 278.00 Active Problem Tobacco use 305.1 Active Problem CAD (coronary artery disease) 414.00 Active Problem HLD (hyperlipidemia) 272.4 Active Problem Anxiety and depression 300.00 Active Problem Erectile dysfunction 607.84 Active Problem Unspecified essential 401.9 Active hypertension Problem GERD (gastroesophageal reflux 530.81 Active disease) Assessment Obesity 278.00 Active Assessment Unspecified essential 401.9 Active hypertension Assessment Anxiety and depression 300.00 Active Assessment Tobacco use 305.1 Active Assessment Diabetes mellitus without 250.02 Active mention of complication, type II or unspecified type, uncontrolled Assessment HLD (hyperlipidemia) 272.4 Active Problem Edema 782.3 Active Medications Medication Code Code Instructions Start End Status Dosage System Date Date GlipiZIDE [facility] [address]-04 10 MG Orally Sept 1 tablet twice a day 2014 Diclofenac [facility] [address]-45 75 MG Orally DecemberSeptember 05 tablet Sodium twice a day 2014 Lisinopril-Hydr [facility] [address]-56 20-12.5 MG Jul 23, 1 tablet ochlorothiazide Orally Once a 2013 day Phentermine HCl [facility] [address]-39 15 mg Orally Sept Apr 08, 1 capsule Once a day 2014 Viagra [facility] [address]-62 50 MG Orally Mar 1 tablet as Once a day 2014 Citalopram [facility] [address]-06 40 MG Orally 1 tablet Hydrobromide Once a day Pioglitazone [facility] [address]-19 30 MG Orally Mar 1 tablet HCl Once a day 2014 Metformin HCl [facility] [address]-37 850 MG Orally Mar 1 tablet with three times 02, a meal daily 2014 Aspirin ND 0 81 mg Jul 23, take 1 tablet 2013 (81 mg) by oral route once daily Albuterol [facility] 23149941081 90 Inhalation 2 puffs as Sulfate HFA every 4 hrs needed BD Ultra-Fine NDC 0 31G Ultra fine December use with [place] mini subQ once , lantus daily 2014 Lasix [facility] 20520070915 40 Orally Once 1 tablet a day Ipratropium [facility] [address]-46 0.03 % Nasally MarSeptember 06 applications [place] Twice a day 30, in each 2014 2015 nostril as needed Clemastine [facility] [address]-53 1.34 MG Orally 1 tablet as Fumarate Twice a day needed Xanax [facility] [address]-14 1 MG Orally October take 1 tablet once a day , by Oral route 2013 3 times per day Flonase [facility] [address]-14 50 MCG/ACT December 06 spray in Nasally Once a , each nostril day 2013 Atorvastatin [facility] [address]-34 80 mg Orally Feb 22, 1 tablet Calcium Once a day 2013 Pantoprazole [facility] [address]-81 40 MG Orally Jul 06, 1 tablet Sodium Once a day 2013 Zofran [facility] [address]-31 8 MG Orally Jun 28, 1 tablet Once a day 2013 Procedures Procedure Coding System Code Date OFFICE VISIT EST PATIENT LEVEL 4 CPT-4 22556 Mar 09, 2015 Vital Signs Date/Time: Mar 09, 2015 BMI 32.77 Index Weight 228.4 lbs Height 70 in Blood Pressure Diastolic 76 mm Hg Blood Pressure Systolic 128 mm Hg Cardiac Monitoring Heart Rate 78 /min Temperature 97.9 F Respiratory Rate 18 /min Results No Known Results Summary Purpose eClinicalWorks Submission
--- OUTSIDE RECORDS SUMMARY | 2017-05-11 13:25 | External Medical Summary ---
:1960 Author Organization [facility] Address [address] [place], [place] [address] Care Team Providers Name Role Phone Janneth Turpin Unavailable Unavailable PROBLEMS Type Condition ICD9-CM [id number] Onset Condition SNOMED Code Code Code Dates Status Problem GERD K21.9 Active 870545421 (gastroesophageal reflux disease) Problem HLD E78.5 Active 63487047 (hyperlipidemia) Problem Depression with F41.8 Active 521783632 anxiety Problem Claudication I73.9 Active 988236667 Problem TIA (transient G45.9 Active 359792293 ischemic attack) Problem OA M19.90 Active 550642994 (osteoarthritis) Problem HTN I10 Active 87247995 (hypertension) Problem Diabetic E11.40 Active 718176071 neuropathy Problem Vitamin B12 E53.8 Active 405554420 deficiency Problem Type 2 diabetes E11.65 Active 329311038242055 mellitus with hyperglycemia Problem Allergic rhinitis J30.9 Active 93990651 Problem ED (erectile N52.9 Active 420758961 dysfunction) Problem Obesity (BMI E66.9 Active 392078078 30.0-34.9) Problem Cigarette F17.210 Active 298337882 nicotine dependence, uncomplicated ALLERGIES Unknown Allergies SOCIAL HISTORY No smoking Hx information available PLAN OF CARE VITAL SIGNS MEDICATIONS Unknown Medications RESULTS No Results PROCEDURES No Known procedures IMMUNIZATIONS No Known Immunizations
--- OUTSIDE RECORDS SUMMARY | 2017-05-11 13:25 | External Medical Summary ---
:1960 Author Organization [facility] Address [address] [place], [place] [address] Care Team Providers Name Role Phone Janneth Turpin Unavailable Unavailable PROBLEMS Type Condition ICD9-CM [id number]-FQ Onset Condition SNOMED Code Code Code Dates Status Problem GERD K21.9 Active 322283138 (gastroesophageal reflux disease) Problem HLD E78.5 Active 42067821 (hyperlipidemia) Problem Depression with F41.8 Active 853717571 anxiety Problem Claudication I73.9 Active 883113079 Problem TIA (transient G45.9 Active 045596784 ischemic attack) Problem OA M19.90 Active 758860527 (osteoarthritis) Problem HTN I10 Active 59247738 (hypertension) Problem Diabetic E11.40 Active 603440485 neuropathy Problem Vitamin B12 E53.8 Active 975387021 deficiency Problem Type 2 diabetes E11.65 Active 213376549538280 mellitus with hyperglycemia Problem Allergic rhinitis J30.9 Active 74970232 Problem ED (erectile N52.9 Active 084581335 dysfunction) Problem Obesity (BMI E66.9 Active 121645882 30.0-34.9) Problem Cigarette F17.210 Active 375492218 nicotine dependence, uncomplicated ALLERGIES Unknown Allergies SOCIAL HISTORY No smoking Hx information available PLAN OF CARE VITAL SIGNS MEDICATIONS Unknown Medications RESULTS No Results PROCEDURES No Known procedures IMMUNIZATIONS No Known Immunizations
--- OUTSIDE RECORDS SUMMARY | 2017-05-11 13:25 | External Medical Summary ---
[...] Medications Medication Code System Code Instructions Start Date End Date Status Dosage Viagra [facility] [address] 50 MG Orally Once Mar 09, October 05, tablet 0-30 a day 2014 2015 as needed Results No Known Results Summary Purpose [employer] Submission
--- OUTSIDE RECORDS SUMMARY | 2017-05-11 13:25 | External Medical Summary ---
:1960 Author Organization [facility] Address [address] [place], [place] [address] Care Team Providers Name Role Phone Abril Turpinberley Unavailable Unavailable PROBLEMS Type Condition ICD9-CM [id number] Onset Condition SNOMED Code Code Code Dates Status Problem ED (erectile N52.9 Active 425159539 dysfunction) Problem GERD K21.9 Active 515487381 (gastroesophageal reflux disease) Problem Cigarette F17.210 Active 810376733 nicotine dependence, uncomplicated Problem Obesity (BMI E66.9 Active 117959711 30.0-34.9) Problem Type 2 diabetes E11.65 Active 635620559381104 mellitus with hyperglycemia Problem Allergic rhinitis J30.9 Active 58745669 Problem Diabetic E11.40 Active 996797600 neuropathy Problem Vitamin B12 E53.8 Active 812276377 deficiency Problem HLD E78.5 Active 20775263 (hyperlipidemia) Problem Depression with F41.8 Active 279648336 anxiety Problem OA M19.90 Active 903322542 (osteoarthritis) Problem HTN I10 Active 56898651 (hypertension) ALLERGIES Unknown Allergies SOCIAL HISTORY No smoking Hx information available PLAN OF CARE VITAL SIGNS MEDICATIONS Unknown Medications RESULTS No Results PROCEDURES No Known procedures IMMUNIZATIONS No Known Immunizations
--- OUTSIDE RECORDS SUMMARY | 2017-05-11 13:25 | External Medical Summary ---
[...] of 414.00 Active unspecified type of vessel, eek or graft Assessment Unspecified essential 401.9 Active hypertension Problem Edema 782.3 Active Problem Smoker 305.1 Active Problem Lipidemia 272.4 Active Problem Unspecified essential 401.9 Active hypertension Problem Erectile dysfunction 607.84 Active Problem Allergic rhinitis 477.9 Active Problem GERD (gastroesophageal reflux 530.81 Active disease) Problem Anxiety and depression 300.4 Active Medications Medication Code Code Instructions Start End Status Dosage System Date Date Carafate [facility] [address]-64 1 GM Orally Aug 16November 10, 1 tablet Twice a day 2014 2014 Xanax [facility] [address]-71 1 MG Orally October take 1 tablet once a day , by Oral route 2013 3 times per day Atorvastatin [facility] [address]-32 80 MG Orally Feb 22, 1 tablet Calcium Once a day 2013umet [facility] [address]-21 50-1000 MG Jul 05, 1 tablet with Orally Twice a 2013 day Sildenafil NDC 0 50 MG Orally Aug 16October 06 tablet 30 Citrate Once a day 2014 10, min before 2015 intercourse Potassium [facility] [address]-53 10 meq Orally Jul 15September 05 tablet Chloride Perri Twice a day 2014 09, ER 2014 Aspirin NDC 0 81 mg Jul 23, take 1 tablet 2013 (81 mg) by oral route once daily Clemastine [facility] [address]-71 1.34 MG Orally 1 tablet as Fumarate Twice a day needed Lasix [facility] 21149483523 40 TAKE ONE TABLET BY MOUTH DAILY Pantoprazole [facility] [address]-43 40 MG Orally Jul 06, 1 tablet Sodium Once a day 2013 Easy Touch Pen ND 0 31G Ultra fine Jul 07, as directed Harman mini subQ 2013 twice a day Diclofenac 75mg [facility] [address]-31 not defined tablet Lisinopril-Hydr [facility] [address]-01 20-12.5 MG Jul 23, 1 tablet ochlorothiazide Orally Once a 2013 day Albuterol [facility] 58775316269 90 Inhalation 2 puffs as Sulfate HFA every 4 hrs needed Abilify [facility] [address]-31 5 MG Orally 1 tablet Once a day GlipiZIDE [facility] [address]-23 5 MG Orally Apr 12, 1 tablet Once a day 2013 Flonase [facility] [address]-91 50 MCG/ACT December 06 spray in Nasally Once a , each nostril day 2013 Zofran [facility] [address]-96 8 MG Orally Jun 28, 1 tablet Once a day 2013 Results No Known Results Summary Purpose eClinicalWorks Submission
--- OUTSIDE RECORDS SUMMARY | 2017-05-11 13:25 | External Medical Summary | Summary of Care ---
[...] 90 Refills: 0 Alfonso Daily M.D. Start 20-Aug-2016 Active Allergies and Adverse Reactions Name Dates [...] Encounters Appointment; Provider: Alfonso Daily M.D. On 12-Sep-2016 08:15 Planned Medications Oxycodone-Acetaminophen 7.5-325 MG Oral Tablet Ordered: 20-Aug-2016 Active Instructions Name Dates Details Instructions not documented Encounters Appointment; Alfonso Daily M.D. On 15-May-2016 Encounter [...] Problem not documented 10:00 Appointment; Yordan Whalen P.A. On 09-Aug-2014 Encounter Diagnosis: Problem not documented 13:00 Appointment; Reyes Gómez D.O. On 05-Aug-2014 Encounter Diagnosis: Problem not documented 09:00 Appointment; Shaun Oakes M.D. On 04-Aug-2014 Encounter Diagnosis: Problem not documented 09:45 Appointment; Reyes Gómez D.O. On 24-Jul-2014 Encounter Diagnosis: Problem not documented 08:25
--- NOTE | 2017-05-11 13:36 | Emergency Department Report ---
General Adult HPI - General Chief complaint: Dizziness Stated complaint: Dizzy Time Seen by Provider: 05/11/17 12:41 Source: patient Mode of arrival: ambulatory Limitations: no limitations - History of Present Illness HPI narrative: 56-year-old male presents to the emergency department with a chief complaint of dizziness. Patient noted onset of symptoms earlier today while preparing to go to work. Patient denies any trauma or injury. No recent change in medications. Patient describes the dizzy sensation as the room turning about him. The dizziness is easily reproducible with movement of the head to the right or left. Patient does note that he has been battling with upper respiratory symptoms prior to onset of symptoms. Patient was started on Levaquin which was discontinued following onset of a rash. Patient also was told that he has a lot of fluid behind his tympanic membranes. Patient has a history of similar symptoms in the past with a viral labyrinthitis. No other complaints or associated symptoms. He was at home when his symptoms began. Symptoms have been persistent in nature since onset. - Related Data Home Medications Medication Instructions Recorded Confirmed ALPRAZolam [Xanax] 1 mg PO TID PRN 05/11/17 05/11/17 Aspirin [Ecotrin] 81 mg PO DAILY 05/11/17 05/11/17 Atorvastatin Calcium 80 mg PO HS 05/11/17 05/11/17 Furosemide [Lasix] 40 mg PO DAILY 05/11/17 05/11/17 Hydrocodone/APAP 10325 [[place] 1 tab PO TID PRN 05/11/17 05/11/17 10/325] Metformin HCl [Metformin HCl ER] 1,000 mg PO BID 05/11/17 05/11/17 Pantoprazole Tab [Protonix Tab] 40 mg PO DAILY 05/11/17 05/11/17 Potassium Chloride [K-Dur] 20 meq PO DAILY 05/11/17 05/11/17 Tadalafil [Cialis] 5 mg PO PRN 05/11/17 05/11/17 buPROPion HCl [Bupropion HCl Sr] 150 mg PO DAILY 05/11/17 05/11/17 glipiZIDE [Glipizide ER] 10 mg PO DAILY 05/11/17 05/11/17 Previous Rx's Medication Instructions Recorded Meclizine [Antivert] 25 mg PO TID PRN #21 tab 05/11/17 Allergies Allergy/AdvReac Type Severity Reaction Status Date / Time sulfamethoxazole Allergy Intermediate Rash Verified 05/11/17 12:45 [From Bactrim] trimethoprim [From Bactrim] Allergy Intermediate Rash Verified 05/11/17 12:45 Review of Systems Constitutional: Denies: fever, chills Eyes: Denies: eye pain, vision change ENT: Denies: ear pain, throat pain Cardiovascular: Denies: chest pain, palpitations Respiratory: Denies: cough, dyspnea Gastrointestinal: Reports: nausea. Denies: abdominal pain, vomiting, diarrhea Genitourinary: Denies: urgency, dysuria Musculoskeletal: Denies: back pain, arthralgia Integumentary: Denies: erythema, rash Neurological: Denies: headache, weakness, numbness, paresthesias Psychiatric: Denies: anxiety, depression Endocrine: Denies: fatigue, heat or cold intolerance Hematological/Lymphatic: Denies: easy bleeding, easy bruising Allergic/Immunologic: Denies: facial swelling, urticaria PFSH Patient Stated Medical History Hypertension Yes Asthma Yes Other Respiratory Yes: CHRONIC CONGESTION Diabetes Mellitus Type 2 Yes Gastroesophageal Reflux Yes Disease Depression Yes Obsessive Compulsive Disorder Yes Clinic Medical History Vertigo (Acute Medical) Surgical History: Appendectomy Family History: Reviewed and noncontributory. - Social History Smoking status: Former smoker Substance use type: does not use Alcohol intake frequency: does not drink Physical Exam - Limitations Limitations: no limitations - General General appearance: alert, in no apparent distress - Normal Exams: Head:: Normocephalic without trauma Eyes:: Pupils are PERRLA w/ EOMI, No scleral icterus, irritation, or foreign bodies noted ENMT:: No facial trauma, nasal exudates, pharyngeal erythema, or exudates are noted (+ horizontal nystagmus.) Dental: No fractured, loose, or missing teeth noted Neck:: Full range of motion, without adenopathy, JVD, bruits or thyromegaly Chest/Respirations:: Clear all robbins, with good airflow, and symmetry bilaterally Cardiovascular:: Regular rate and rhythm, without murmur or gallop, Pulses 2+ all extremities, capillary refill, <2 seconds all extremities Abdomen:: Bowel sounds positive, soft, non-tender, non-distended, no hepatosplenomegaly, masses or bruits noted Lymphatic:: No lymphadenopathy, or lymphedema noted Musculoskeletal:: No tenderness, or deformity noted, good range of motion, all extremities Integumentary:: No rashes, hives, or bruising noted, hair and nails, without abnormality Neurological:: Patient is alert, and oriented, cranial nerves, motor/sensory/ cerebellar, exams w/o gross deficits, to observation (Alert and oriented x 4. CN 2-12 intact. Normal sensation. Normal speech. Normal motor. Normal coordination. Normal strength. Reflexes 2/4 in all extremities. Gait is unable to be tested due to dizziness. Absent Babinski bilaterally. Unremarkable neurologic exam. No focal neurologic deficit.) Psychiatric:: Patient exhibits, appropriate attention, emotion and affect Course Vital Signs Temperature 98.0 F 05/11/17 12:16 Pulse Rate 73 05/11/17 12:16 Respiratory Rate 18 05/11/17 12:16 Blood Pressure 142/70 H 05/11/17 12:16 Pulse Oximetry 100 05/11/17 12:16 Temperature 98.0 F 05/11/17 12:16 Pulse Rate 63 05/11/17 16:00 Respiratory Rate 22 05/11/17 16:00 Blood Pressure 122/58 05/11/17 14:02 Pulse Oximetry 96 05/11/17 16:00 Medical Decision Making - [facility] Narrative Medical decision making narrative: Labs/imaging were discussed in detail with the patient and questions are answered. Patient is given 1 L normal saline intravenously. Patient is given regular insulin 6 units subcutaneously 1. Patient is given Antivert 25 mg by mouth 1 with improvement of dizziness. Patient's final Accu-Chek was 334 mg/ dL for blood glucose. Patient was found to be eating in the room while I am trying to lower his blood sugar with medications. Patient is also currently taking steroids. Patient is ambulated and patient is still experiencing the dizziness and there is concern that he may be a potential fall risk. Patient is discussed with Dr. Burroughs the hospitalist and admitted to her service in improved condition. Patient is in agreement with the current plan of management. He is admitted to the hospital in improved condition. No further orders from accepting physician who is in agreement with the current plan of management. - Differential Diagnosis vertigo, viral labyrinthitis, UTI, metabolic process - Lab Data Result diagrams: 05/11/17 12:59 05/11/17 12:59 Lab Results 05/11/17 05/11/17 05/11/17 Range/Units 12:59 12:59 13:10 WBC 7.4 (4.5-11.0) T/MM3 RBC 5.01 (4.50-5.90) M/MM3 Hgb 14.7 (13.5-17.5) GM/DL Hct 43.7 (41-53) % MCV 87.2 (80-100) UM3 MCH 29.3 (26-34) UUG MCHC 33.6 (31-37) GM/DL RDW Std Deviation 42.7 (36.9-50.2) FL Plt Count 78 L (130-400) T/MM3 MPV 11.6 (9.4-12.4) UM3 Immature Gran % (Auto) 0.3 (0.0-0.5) % Neut % (Auto) 72.4 H (33-66) % Lymph % (Auto) 19.4 L (23-45) % Stanton % (Auto) 5.8 (0-9.0) % Eos % (Auto) 1.8 (0-4) % Baso % (Auto) 0.3 (0-2) % Neut # (Auto) 5.4 (1.8-7.7) T/MM3 Lymph # (Auto) 1.4 (1-4.8) T/MM3 Stanton # (Auto) 0.4 (0-0.8) T/MM3 Eos # (Auto) 0.1 (0-0.5) T/MM3 Baso # (Auto) 0.0 (0-0.2) T/MM3 Abs Immat Gran (auto) 0.02 (0.00-0.03) T/MM3 Turbidity < 20 (0-20) Sodium 139 (134-144) MEQ/L Potassium 4.5 (3.6-5) MEQ/L Chloride 102 (98-107) MEQ/L Carbon Dioxide 27 (22-30) MEQ/L Anion Gap 10 (5-15) MEQ/L BUN 14.0 (9-20) MG/DL Creatinine 1.0 (0.8-1.5) MG/DL GFR Calculation 78 BUN/Creatinine Ratio 14 (6-26) RATIO Glucose 368 H (75-110) MG/DL Calculated Osmolality 284 H (261-280) MOSM/KG Calcium 9.2 (8.4-10.2) MG/DL Total Bilirubin 1.00 (0.20-1.30) MG/DL Icterus Index < 2 (0-7) AST 38 (17-59) U/L ALT 75 H (21-72) U/L Alkaline Phosphatase 114 (38-126) U/L Troponin I < 0.012 (0-0.12) ng/ml Total Protein 7.8 (6.3-8.2) G/DL Albumin 4.1 (3.5-5.0) G/DL Globulin 3.7 H (2.4-3.6) G/DL Albumin/Globulin Ratio 1.1 (1.1-2.2) RATIO Specimen Hemolysis < 15 (0-25) Ur Collection Type Urine, clean catch Urine Color Yellow (YELLOW) Urine Clarity Clear Urine pH 6.0 (5.0-8.0) Ur Specific [place] 1.010 L (1.015-1.025) Urine Protein Negative (NEGATIVE) Urine Glucose (UA) 3+ A (NEGATIVE) Urine Ketones Negative (NEGATIVE) Urine Occult Blood Negative (NEGATIVE) Urine Nitrate Negative (NEGATIVE) Urine Bilirubin Negative (NEGATIVE) Urine Urobilinogen 0.2 (NORMAL) EU/DL Ur Leukocyte Esterase Negative (NEGATIVE) Urinalysis Comment Microscopic not ind. - Radiology Data CT HEAD - No acute processes. CXR - No acute processes. - EKG Data EKG #1 EKG results narrative: Sinus rhythm. 68 bpm. No STEMI. Disposition Clinical Impression: Vertigo Disposition: 02 To [facility] Condition: Improved Time of Disposition: 15:00 (Admit. Dr. Burroughs. ) - Seen By: physician
[2017-05-11] MEDS ORDERED: MECLIZINE 25 MG TABLET PO ONE (13:42)
[2017-05-11] MEDS ORDERED: INSULIN REGULAR, HUMAN 100 UNIT/ML INJECTION SQ ONE (13:51)
[2017-05-11 16:19] VITALS: BMI 31.6
--- NOTE | 2017-05-11 17:04 | History & Physical Report ---
<Dara Lockwood - Last Filed: 05/11/17 16:57> History of Present Illness Date: 05/11/17 (PCP: [facility]: PRINCE Cardenas) Chief complaint: Vertigo HPI: Parker is 56 yo male who lives in [facility] and is seen by the [facility] for his health concerns. He has been dealing with an URI for the last couple of weeks. States that he has not been having any fever or chills. States no new sinus congestion or drainage. Denies cough. Denies SOA. Is not clear what his URI symptoms have been States that he called his PCP and was given Levaquin. He developed a rash and went to the ER in [facility]. Also reported that he was "using my nebulizer all the time and it wasnt working." In the ER at [facility], he was told that he had a right ear infection, and was started on a medrol dose pack. He has been feeling better overall. Today, he was visiting a friend here locally and became very dizzy. Worse with movement of his head. Room was spinning with his vision. No speech changes. No focal weakness. No gait instability. Does endorse some nausea, primarily with vertigo. No vomiting. No other GI S/E. His BG is found very elevated in the ER. He reports that he takes Metformin 1000mg PO BID and also Glipizide XL 20mg daily. He rarely checks his BG, but states that he usually runs around 160 or so. Prior A1c was over 11, now in the upper 6's. Reports that when he is ill, "It's nothing for me to be in the 400's. " Overall, he is pleased with his DM2 progress over the last few months. Stopped smoking 10 days ago. Review of Systems All systems PM: 10-point ROS was reviewed, no additional remarkable complaints except - Constitutional Constitutional: Absent: chills, fever(s), headache(s) - EENMT Eyes: Present: blurry vision Ears: Present: ear pain (Right ear) Balance: Present: vertigo (Positional), ataxia Mouth/Throat: Absent: sore throat, scratchy throat, changes in swallowing - Cardiovascular Cardiovascular: Absent: chest pain, dyspnea on exertion, edema, cyanosis Vascular: Absent: pedal edema - Respiratory Respiratory: Absent: cough, dyspnea, dyspnea on exertion, wheezing, chest congestion - Gastrointestinal Gastrointestinal: Absent: abdominal pain, constipation, diarrhea, nausea, vomiting - Musculoskeletal Musculoskeletal: Absent: arthralgias, back pain, limited range of motion - Neurological Neurological: Present: dizziness. Absent: abnormal gait, abnormal speech, confusion, focal weakness, headache(s) PFSH Patient Stated Medical History Peripheral Neuropathy Yes Coronary Artery Disease Yes Hypertension Yes Asthma Yes Bronchitis Yes Other Respiratory Yes: CHRONIC CONGESTION Diabetes Mellitus Type 2 Yes Gastroesophageal Reflux Yes Disease Depression Yes Obsessive Compulsive Disorder Yes Anxiety Past labrynthitis-viral Clinic Medical History Vertigo (Acute Medical) Surgical History: Appendectomy. Knee scope Family History: CAD DM2 Stroke Brother- Pancreatic CA Parkinson's - Social History Smoking status: Former smoker Quit date: 05/02/17 Current occupational status: employed Does patient use chewing tobacco?: No Current residence: Apartment/Private Home Medications Home Medications Medication Instructions Recorded Confirmed Type ALPRAZolam [Xanax] 1 mg PO TID PRN 05/11/17 05/11/17 History Aspirin [Ecotrin] 81 mg PO DAILY 05/11/17 05/11/17 History Atorvastatin Calcium 80 mg PO HS 05/11/17 05/11/17 History Furosemide [Lasix] 40 mg PO DAILY 05/11/17 05/11/17 History Hydrocodone/APAP 10325 [[employer] 1 tab PO TID PRN 05/11/17 05/11/17 History 10/325] Metformin HCl [Metformin HCl ER] 1,000 mg PO BID 05/11/17 05/11/17 History Pantoprazole Tab [Protonix Tab] 40 mg PO DAILY 05/11/17 05/11/17 History Potassium Chloride [K-Dur] 20 meq PO DAILY 05/11/17 05/11/17 History Tadalafil [Cialis] 5 mg PO PRN 05/11/17 05/11/17 History buPROPion HCl [Bupropion HCl Sr] 150 mg PO DAILY 05/11/17 05/11/17 History glipiZIDE [Glipizide ER] 10 mg PO DAILY 05/11/17 05/11/17 History Allergies Allergy/AdvReac Type Severity Reaction Status Date / Time sulfamethoxazole Allergy Intermediate Rash Verified 05/11/17 16:35 [From Bactrim] trimethoprim [From Bactrim] Allergy Intermediate Rash Verified 05/11/17 16:35 Exam Vital Signs: Temperature 96.7 F L 05/11/17 16:24 Pulse Rate 63 05/11/17 16:24 Respiratory Rate 18 05/11/17 16:24 Blood Pressure 118/63 05/11/17 16:24 Pulse Oximetry 98 05/11/17 16:24 Height/Weight/BMI: Height 1.78 m Weight 100.2 kg Body Mass Index 31.6 - Constitutional Present: no acute distress, obese, cooperative - Routine HEENT Exam Head: Present: normocephalic, atraumatic Eye: Present: EOMI, PERRL, normal accommodation. Absent: scleral injection, conjunctivae pink ENT: Present: mucous membranes moist, external ear normal. Absent: sinus tenderness - Routine Neck Exam Present: supple, full ROM, trachea midline. Absent: swelling - Routine Respiratory Exam Present: CTA bilaterally. Absent: rhonchi, stridor, wheezes, crackles - Routine Cardiovascular Exam Present: RRR, S1, S2, no murmur - Routine Abdominal Exam Present: soft, normoactive bowel sounds, non distended, non tender - Routine Extremities Exam Present: no edema, non tender, full ROM - Routine Skin Exam Present: intact, dry, warm - Routine Neurological Exam Present: alert, oriented X3, CN II-XII intact, moving all extremities - Routine Psychiatric Exam Present: normal affect, normal thought process Results - Labs CBC & Chem 7: 05/11/17 12:59 05/11/17 12:59 - Impressions - Radiology Data CT HEAD - No acute processes. CXR - No acute processes. - EKG Data EKG #1 EKG results narrative: Sinus rhythm. 68 bpm. No STEMI. Assessment and Plan (1) Vertigo Current visit: Yes Status: Acute Assessment and Plan: Impression: Acute Labrynthitis Recent URI DM2 HTN Hx. of Asthma GERD Depression/OCD/Anxiety Plan: 05/11/17 He does not have any sx c/w acute stroke. PRN meclizine. PRN flonase. Scopolamine patch. Stop steroids. Continue home meds. PRN insulin. Potentially home tomorrow. DVT Prophylaxis: Lovenox GI Prophylaxis: Protonix Resuscitation Status: Full Code Hospital Course Summary Disclaimer: The visit summary below is not to be considered part of the above Progress Note. Hospital Course: 05/11/17 17:13 Impression: Acute Labrynthitis Recent URI DM2 HTN Hx. of Asthma GERD Depression/OCD/Anxiety Plan: 05/11/17 He does not have any sx c/w acute stroke. PRN meclizine. PRN flonase. Scopolamine patch. Stop steroids. Continue home meds. PRN insulin. Potentially home tomorrow. <Zenia Burroughs - Last Filed: 05/11/17 17:39> History of Present Illness Date: 05/11/17 [facility] Patient Stated Medical History Peripheral Neuropathy Yes Coronary Artery Disease Yes Hypertension Yes Asthma Yes Bronchitis Yes Other Respiratory Yes: CHRONIC CONGESTION Diabetes Mellitus Type 2 Yes Gastroesophageal Reflux Yes Disease Depression Yes Obsessive Compulsive Disorder Yes Clinic Medical History Vertigo (Acute Medical) Exam Vital Signs: Temperature 96.7 F L 05/11/17 16:24 Pulse Rate 63 05/11/17 16:24 Respiratory Rate 18 05/11/17 16:24 Blood Pressure 118/63 05/11/17 16:24 Pulse Oximetry 98 05/11/17 16:24 Height/Weight/BMI: Height 1.78 m Weight 100.2 kg Body Mass Index 31.6 Results - Labs CBC & Chem 7: 05/11/17 12:59 05/11/17 12:59 Assessment and Plan (1) Vertigo Current visit: Yes Status: Acute Assessment and Plan: Manjeet MOMIN Mr. Fenton was interviewed and examined by me. He is actually feeling a bit better since he's been admitted. He is still having some vertigo but it has improved. He denies headache. He denies any near syncopal feelings. He denies chest pain, palpitations, shortness of breath. He does continue to have a mild call with light yellow sputum production. He's had a respiratory infection for couple of weeks but he thinks it's getting better. He does still complain of sinus congestion. He denies any abdominal pain. He does get nauseated with her vertigo. He denies any emesis. He denies any diarrhea or constipation. He denies melena or hematochezia. He denies any urinary problems. He does have intermittent mild edema from time to time. From his past medical history he does say that a few years ago he had acute labyrinthitis causing vertigo. He has a history of asthma that's fairly well controlled. He is diabetic. He has coronary artery disease and has had a stent in the past by Dr. Crespo. His primary care physician is a JOI Brunner by the name of Eugenia Turpin. 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. He tells me he quit smoking 10 days ago. He denies alcohol consumption. I have reviewed his labs. He does have low platelets of unclear etiology. His CT scan and chest x-ray are relatively unremarkable. In general he is alert and oriented. He's very pleasant. There is slight horizontal my stagnates. Otherwise his HEENT exam is unremarkable. His neck is supple without JVD. There are no carotid bruits. His heart is regular rate and rhythm without murmur rub or gallop. His abdomen is soft, nontender with positive bowel sounds. He has no lower extremity edema at this time. He has good distal pulses. His skin is warm and dry. We will continue his metformin and glipizide as well as starting sliding scale insulin. We will continue his home aspirin and statin. We will continue his Protonix for his acid reflux. We will initiate PRN respiratory therapy for his asthma. Will initiate Flonase for his sinus congestion. We will continue his bupropion for his smoking cessation. Hospital Course Summary Disclaimer: The visit summary below is not to be considered part of the above Progress Note.
[2017-05-11] MEDS ORDERED: ALPRAZolam 1 MG TABLET PO PRN (17:13)
[2017-05-11] MEDS ORDERED: HYDROCODONE/APAP 10 MG/325 MG TABLET PO PRN (17:13)
[2017-05-11] MEDS ORDERED: SCOPOLAMINE 1.5 MG PATCH TD SCH (17:15)
[2017-05-11] MEDS ORDERED: SCOPOLAMINE PATCH REMOVAL TD ONE (17:15)
[2017-05-11] MEDS ORDERED: MECLIZINE 25 MG TABLET PO PRN (17:16)
[2017-05-11] MEDS ORDERED: ONDANSETRON 4 MG/2 ML INJECTION IVP PRN (17:16)
[2017-05-11] MEDS ORDERED: ATORVASTATIN 40 MG TABLET PO SCH (21:00)
[2017-05-11] MEDS: INSULIN ASPART 100unit/ml INJECTION SQ PRN (21:12)
[2017-05-11] MEDS: FLUTICASONE NASAL SPRAY 50mcg EA NOSTRIL SCH (21:13)
[2017-05-12] MEDS ORDERED: METFORMIN 1,000 MG TABLET PO SCH (08:00)
[2017-05-12 08:05] VITALS: RESP 16
[2017-05-12 08:58] VITALS: BP 126/75; PULSE 61; TEMP 96.9; O2SAT 96
[2017-05-12] MEDS ORDERED: ENOXAPARIN 40 MG/0.4 ML INJECTION SQ SCH (09:00)
[2017-05-12] MEDS ORDERED: LISINOPRIL 2.5 MG TABLET PO SCH (09:00)
[2017-05-12] MEDS ORDERED: PANTOPRAZOLE 40 MG TABLET PO SCH (09:00)
[2017-05-12] MEDS ORDERED: BuPROPion SR 150mg (12HR) TABLET PO SCH (09:00)
[2017-05-12] MEDS ORDERED: FUROSEMIDE 40 MG TABLET PO SCH (09:00)
[2017-05-12] MEDS ORDERED: ASPIRIN *EC* 81 MG TABLET PO SCH (09:00)
[2017-05-12] MEDS: FLUTICASONE NASAL SPRAY 50mcg EA NOSTRIL SCH (09:01)
--- NOTE | 2017-05-12 09:23 | XRay Report ---
Indication: dizzy PROCEDURE: XR chest 1V: Encounter: Initial Comparison: None FINDINGS: The lungs are clear. There is no abnormal airspace opacity, pleural effusion or pneumothorax identified. The heart size, pulmonary vasculature and mediastinum are within normal limits. No significant skeletal abnormality is seen. IMPRESSION: No acute cardiopulmonary abnormality. .
--- NOTE | 2017-05-12 10:12 | CT Scan Report ---
Indication: Dizzy PROCEDURE: CT head/brain wo con: Encounter: Initial Comparison: None Technique: Axial CT images through the head were performed without contrast. Iterative Reconstruction dose reducing technique was utilized. FINDINGS: The ventricles are of normal size, shape, and contour for the patient's age. There are scattered areas of low attenuation in the white matter which most likely represent changes from chronic microvascular ischemia. The brainstem, cerebellum, and cerebral hemispheres otherwise have a normal morphology and CT attenuation. There is no evidence of midline displacement. No hemorrhage, signs of acute territorial stroke, mass effect, mass lesions, or edema is evident. The visualized portions of the skull base, midface, and calvarium demonstrate no abnormality. Acute on chronic left maxillary sinusitis. The tympanic and mastoid cavities appear normal. IMPRESSION: No acute intracranial abnormality or hemorrhage. Left maxillary sinusitis. There is a preliminary report by virtual radiologic. .
--- NOTE | 2017-05-12 10:35 | Progress Note ---
- Date 05/12/17 Subjective: Parker is 56 yo male who lives in [place] and is seen by the [facility] for his health concerns. He has been dealing with an URI for the last couple of weeks. States that he has not been having any fever or chills. States no new sinus congestion or drainage. Denies cough. Denies SOA. His sinuses feel congested. States that he called his PCP and was given Levaquin. He developed a rash and went to the ER in [place]. Also reported that he was "using my nebulizer all the time and it wasn't working." In the ER at [place], he was told that he had a right ear infection, and was started on a Medrol dose pack. He has been feeling better overall. Today, he was visiting a friend here locally and became very dizzy. Worse with movement of his head. Room was spinning. No speech changes. No focal weakness. No gait instability. Does endorse some nausea, primarily with vertigo. No vomiting. No other GI S/E. His BG is found very elevated in the ER. He reports that he takes Metformin 1000mg PO BID and also Glipizide XL 20mg daily. He rarely checks his BG, but states that he usually runs around 160 or so. Prior A1c was over 11, now in the upper 6's. Reports that when he is ill, "It's nothing for me to be in the 400's. " Overall, he is pleased with his DM2 progress over the last few months. Stopped smoking 10 days ago. Today, he is feeling much better. Only slightly dizzy. Is able to get up and around in the room without problems. He feels like he could go home with close follow up next week with his PCP. He denies SOA, CP, Palp. No abd pain. mild nausea with the vertigo. No vomiting. Objective Vital signs: Temperature 96.9 F 05/12/17 08:56 Pulse Rate 61 05/12/17 08:56 Respiratory Rate 16 05/12/17 08:56 Blood Pressure 126/75 05/12/17 08:56 Pulse Oximetry 96 05/12/17 08:56 Height/Weight/BMI: Height 1.78 m Weight 98.9 kg Body Mass Index 31.6 Comments: Gen: alert and oriented. NAD Skin: warm and dry HEENT: NC/AT PERRL, EOMI, Sclera, lids and conjunctiva wnl. MMM. OP clear. Neck: No JVD, Carotids 2+ without bruits Lungs: clear. No rales, rhonchi or wheezes CV: regular. No murmur, rub or gallop Abd: soft. +BS. NT/ND MS: No edema. Good strength and ROM Neuro: No focal deficits Results - Labs CBC & Chem 7: 05/12/17 04:41 05/12/17 04:41 Assessment and Plan (1) Vertigo Current visit: Yes Status: Acute Assessment and Plan: Impression: 1. Vertigo -Likely from acute Labrynthitis -Improved -Continue on flonase, antivert -Follow up with PCP next week 2. Recent URI -Lungs are clear. -Appears stable 3. DM2 -Continue home medications. 4. HTN -Lasix 40mg daily at home along with K 20meq daily -Lisinopril 2.5mg initiated. 5. Hx. of Asthma -Stable 6. GERD -Continue Protonix as at home 7. Depression/OCD/Anxiety -On Xanax at home prn 8. HLP -On statin Pt can be discharged to today with follow up with PCP next week. Hospital Course Summary Disclaimer: The visit summary below is not to be considered part of the above Progress Note. Hospital Course: 05/11/17 17:13 Impression: Acute Labrynthitis Recent URI DM2 HTN Hx. of Asthma GERD Depression/OCD/Anxiety Plan: 05/11/17 He does not have any sx c/w acute stroke. PRN meclizine. PRN flonase. Scopolamine patch. Stop steroids. Continue home meds. PRN insulin. Potentially home tomorrow.
--- NOTE | 2017-05-12 10:48 | Discharge Summary ---
Discharge Information Date of admission: 05/11/17 15:51 Anticipated date of discharge: 05/12/17 Attending Physician: Zenia Burroughs MD Primary care physician: Cinthia MORRISON in [place] - Discharge Diagnosis (1) Vertigo Status: Acute Vertigo with associated nausea Sinusitis DM HTN HLP GERD - Laboratory Labs: 05/12/17 04:41 05/12/17 04:41 Laboratory Results - last 48 hr 05/11/17 05/11/17 05/11/17 12:59 12:59 13:10 WBC 7.4 RBC 5.01 Hgb 14.7 Hct 43.7 MCV 87.2 MCH 29.3 MCHC 33.6 RDW Std Deviation 42.7 Plt Count 78 L MPV 11.6 Immature Gran % (Auto) 0.3 Neut % (Auto) 72.4 H Lymph % (Auto) 19.4 L [place] % (Auto) 5.8 Eos % (Auto) 1.8 Baso % (Auto) 0.3 Neut # (Auto) 5.4 Lymph # (Auto) 1.4 [place] # (Auto) 0.4 Eos # (Auto) 0.1 Baso # (Auto) 0.0 Abs Immat Gran (auto) 0.02 INR Turbidity < 20 Sodium 139 Potassium 4.5 Chloride 102 Carbon Dioxide 27 Anion Gap 10 BUN 14.0 Creatinine 1.0 GFR Calculation 78 BUN/Creatinine Ratio 14 Glucose 368 H Glucometer Calculated Osmolality 284 H Calcium 9.2 Total Bilirubin 1.00 Icterus Index < 2 AST 38 ALT 75 H Alkaline Phosphatase 114 Troponin I < 0.012 Total Protein 7.8 Albumin 4.1 Globulin 3.7 H Albumin/Globulin Ratio 1.1 Specimen Hemolysis < 15 Ur Collection Type Urine, clean catch Urine Color Yellow Urine Clarity Clear Urine pH 6.0 Ur Specific [place] 1.010 L Urine Protein Negative Urine Glucose (UA) 3+ A Urine Ketones Negative Urine Occult Blood Negative Urine Nitrate Negative Urine Bilirubin Negative Urine Urobilinogen 0.2 Ur Leukocyte Esterase Negative Urinalysis Comment Microscopic not ind. 05/11/17 05/12/17 05/12/17 20:52 04:41 04:41 WBC 7.1 RBC 4.77 Hgb 13.9 Hct 42.2 MCV 88.5 MCH 29.1 MCHC 32.9 RDW Std Deviation 43.8 Plt Count 76 L MPV 11.8 Immature Gran % (Auto) 0.1 Neut % (Auto) 70.9 H Lymph % (Auto) 21.0 L [place] % (Auto) 5.8 Eos % (Auto) 2.1 Baso % (Auto) 0.1 Neut # (Auto) 5.1 Lymph # (Auto) 1.5 [place] # (Auto) 0.4 Eos # (Auto) 0.2 Baso # (Auto) 0.0 Abs Immat Gran (auto) 0.01 INR 1.16 Turbidity Sodium Potassium Chloride Carbon Dioxide Anion Gap BUN Creatinine GFR Calculation BUN/Creatinine Ratio Glucose Glucometer 219 Calculated Osmolality Calcium Total Bilirubin Icterus Index AST ALT Alkaline Phosphatase Troponin I Total Protein Albumin Globulin Albumin/Globulin Ratio Specimen Hemolysis Ur Collection Type Urine Color Urine Clarity Urine pH Ur Specific [place] Urine Protein Urine Glucose (UA) Urine Ketones Urine Occult Blood Urine Nitrate Urine Bilirubin Urine Urobilinogen Ur Leukocyte Esterase Urinalysis Comment 05/12/17 05/12/17 04:41 06:54 WBC RBC Hgb Hct MCV MCH MCHC RDW Std Deviation Plt Count MPV Immature Gran % (Auto) Neut % (Auto) Lymph % (Auto) [place] % (Auto) Eos % (Auto) Baso % (Auto) Neut # (Auto) Lymph # (Auto) [place] # (Auto) Eos # (Auto) Baso # (Auto) Abs Immat Gran (auto) INR Turbidity < 20 Sodium 140 Potassium 4.1 Chloride 101 Carbon Dioxide 30 Anion Gap 9 BUN 14.0 Creatinine 0.8 D GFR Calculation 100 BUN/Creatinine Ratio 18 Glucose 182 H Glucometer 158 Calculated Osmolality 275 Calcium 9.1 Total Bilirubin Icterus Index < 2 AST ALT Alkaline Phosphatase Troponin I Total Protein Albumin Globulin Albumin/Globulin Ratio Specimen Hemolysis < 15 Ur Collection Type Urine Color Urine Clarity Urine pH Ur Specific [place] Urine Protein Urine Glucose (UA) Urine Ketones Urine Occult Blood Urine Nitrate Urine Bilirubin Urine Urobilinogen Ur Leukocyte Esterase Urinalysis Comment - Radiology Radiology: CT of the head 05/11/17 IMPRESSION: No acute intracranial abnormality or hemorrhage. Left maxillary sinusitis. CXR: 05/11/17 IMPRESSION: No acute cardiopulmonary abnormality. History of Present Illness HPI: Parker is 56 yo male who lives in [email or web address] and is seen by the [facility] for his health concerns. He has been dealing with an URI for the last couple of weeks. States that he has not been having any fever or chills. States no new sinus congestion or drainage. Denies cough. Denies SOA. Is not clear what his URI symptoms have been States that he called his PCP and was given Levaquin. He developed a rash and went to the ER in [facility] [[email or web address] Also reported that he was "using my nebulizer all the time and it wasnt working." In the ER at [facility] [[email or web address]], he was told that he had a right ear infection, and was started on a medrol dose pack. He has been feeling better overall. Today, he was visiting a friend here locally and became very dizzy. Worse with movement of his head. Room was spinning with his vision. No speech changes. No focal weakness. No gait instability. Does endorse some nausea, primarily with vertigo. No vomiting. No other GI S/E. His BG is found very elevated in the ER. He reports that he takes Metformin 1000mg PO BID and also Glipizide XL 20mg daily. He rarely checks his BG, but states that he usually runs around 160 or so. Prior A1c was over 11, now in the upper 6's. Reports that when he is ill, "It's nothing for me to be in the 400's. " Overall, he is pleased with his DM2 progress over the last few months. Stopped smoking 10 days ago. Hospital Course This is a general summary of the patient's hospital course. For more details refer to the complete medical record. Discharge Plan - Med Rec/Dispo Prescriptions: New Meclizine [Antivert] 25 mg PO TID PRN #21 tab PRN Reason: Dizziness Fluticasone Nasal [place] [Flonase] 2 spray EA NOSTRIL BID #1 bottle Lisinopril [Prinivil] 2.5 mg PO DAILY #30 tab Meclizine [Antivert] 25 mg PO Q6H PRN #30 tab PRN Reason: Vertigo Continue Atorvastatin Calcium 80 mg PO HS glipiZIDE [Glipizide ER] 10 mg PO DAILY Pantoprazole Tab [Protonix Tab] 40 mg PO DAILY Metformin HCl [Metformin HCl ER] 1,000 mg PO BID Furosemide [Lasix] 40 mg PO DAILY Tadalafil [Cialis] 5 mg PO PRN Hydrocodone/APAP 10/325 [[place] 10/325] 1 tab PO TID PRN PRN Reason: Pain buPROPion HCl [Bupropion HCl Sr] 150 mg PO DAILY Aspirin [Ecotrin] 81 mg PO DAILY ALPRAZolam [Xanax] 1 mg PO TID PRN PRN Reason: Anxiety Potassium Chloride [K-Dur] 20 meq PO DAILY - Disposition 01 Discharged Home, Self-Care - Dismissal Complete Discharge Instructions are:: Complete
[2017-05-12] MEDS: INSULIN ASPART 100unit/ml INJECTION SQ PRN (12:41)
[2017-05-14] MEDS ORDERED: SCOPOLAMINE PATCH REMOVAL TD ONE (17:00)
== END 2017-05-12 13:25 | disposition home or self-care (01) ==
LOC: MED 12:16 → ED 12:16 → MED 16:10
PROVIDERS: ADMIT Internal Medicine Cardiovascular Disease; ATTEND Internal Medicine Cardiovascular Disease